=== PATIENT | female | born 1950 | race Caucasian/White ===

== ENCOUNTER 2021-06-25 17:24 | Inpatient (IN) | payer BC, OTHER ==
[2021-06-25 17:50] LABS: Absolute Lymphocytes (CBC) 2.5 K/uL (0.7-4.9); Lymphocytes % 25.2 % (15.3-44.8); MPV 7.3 fL (7.6-11.3); RBC Red Blood Cell Count 3.75 M/uL (3.86-4.86)
--- NOTE | 2021-06-25 17:53 | RAD REPORT ---
EXAM DESCRIPTION: CT - Ct Stroke Brain Wo Cont - 06/25/2021 5:39 pm CLINICAL HISTORY: Neuro deficit, acute, stroke suspected COMPARISON: No comparisons TECHNIQUE: All CT scans are performed using dose optimization technique as appropriate and may inclu de automated exposure control or mA/KV adjustment according to patient size. FINDINGS: No intracranial hemorrhage, hydrocephalus or extra-axial fluid collection.No areas of brai n edema or evidence of midline shift. The paranasal sinuses and mastoids are clear. The calvarium is intact. IMPRESSION: No acute intracranial abnormality. COMMUNICATION The critical information above was relayed directly by me to Kang Mckeon at [id number] on 06/01 08/21
[2021-06-25 17:59] LABS: Protime INR 0.97
--- NOTE | 2021-06-25 17:59 | RAD REPORT ---
EXAM DESCRIPTION: CT - Neck Angio - 06/25/2021 5:46 pm CLINICAL HISTORY: FACIAL DROOP COMPARISON: No comparisons TECHNIQUE: CT angiography of the neck vessels was performed with MIPs. All CT scans are performed using dose optimization technique as appropriate and may include automated exposure control or mA/KV adjustment according to patient size. FINDINGS: A left aortic arch is identified with normal three vessel configuration of the great vesse ls. No significant flow abnormality is seen of the common carotid bilaterally. Moderate stenosis of the right ICA at the bulb secondary to calcified plaque. Mild, less than 50% laura nosis at the left proximal ICA secondary to calcified plaque. Both ECAs are patent. Normal flow is seen within both vertebral arteries. Dominant left vertebral artery. IMPRESSION: Moderate right ICA stenosis. Mild (less than 50%) stenosis of the left ICA.
[2021-06-25] MEDS ORDERED: TENECTEPLASE 50 MG/10 ML VIAL IV ONE (18:02)
--- NOTE | 2021-06-25 18:10 | RAD REPORT ---
EXAM DESCRIPTION: CT - Head angio - 06/25/2021 5:46 pm CLINICAL HISTORY: FACIAL DROOP COMPARISON: Ct Stroke Brain Wo Cont dated 06/25/2021 TECHNIQUE: CT angiography of the head was performed with MIPs. All CT scans are performed using dose optimization technique as appropriate and may include automated exposure control or mA/KV adjustment according to patient size. FINDINGS: Anterior circulation: 3 mm saccular aneurysm versus infundibulum at the bifurcation of the right M1 segment of the middle c erebral artery. There is a 4 millimeters saccular aneurysm arising from the right proximal MCA. No he modynamically significant stenosis. No arteriovenous malformation identified. Right sphenoid sinus mu cosal thickening. Posterior circulation: No aneurysm or large vessel occlusion. No hemodynamically significant stenosis. No arteriovenous malf ormation identified. Hypoplastic right vertebral artery. IMPRESSION: No significant flow abnormality is detected. 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 Small 3 mm aneurysm at the M1/M2 bifurcation versus infund ibulum.
--- NOTE | 2021-06-25 18:24 | ER ---
Nurse's Notes [facility] Name: Mary Watts Age: 70 yrs Sex: Female : 1950 Arrival Date: 06/25/2021 Time: 17:32 Bed 3 Private MD: Diagnosis: Cerebral infarction, unspecified;Slurred speech;Facial weakness Presentation: 06/25 17:31 Chief complaint: EMS states: ACUTE NEURO DEFICITS, R FACIAL DROOP AND DYSARTHRIA, LAST bp KNOWN NORMAL 1630. Coronavirus screen: At this time, the client does not indicate any symptoms associated with coronavirus-19. Ebola Screen: No symptoms or risks identified at this time. Initial Sepsis Screen: Does the patient meet any 2 criteria? No. Patient's initial sepsis screen is negative. Does the patient have a suspected source of infection? No. Patient's initial sepsis screen is negative. Risk Assessment: Do you want to hurt yourself or someone else? Patient reports no desire to harm self or others. Note CODE STROKE CALLED. Onset of symptoms was June 25, 2021 at 16:30. Care prior to arrival: IV initiated. 18 GA, in the right antecubital area, Glucose check: 80. 17:31 Acuity: GROVER 1 bp 17:31 Method Of Arrival: EMS: [facility] bp Triage Assessment: 17:48 General: Appears distressed, comfortable, Behavior is calm, cooperative, NONVERBAL. bp Pain: Denies pain. EENT: No deficits noted. Neuro: Level of Consciousness is awake, alert, obeys commands, Oriented to RACHEL. Product Management Analyst are equal bilaterally Moves all extremities. Full function Speech with expressive aphasia noted, Facial droop on right. Cardiovascular: Rhythm is sinus rhythm. Respiratory: No deficits noted. GI: No signs and/or symptoms were reported involving the gastrointestinal system. : No signs and/or symptoms were reported regarding the genitourinary system. Derm: No deficits noted. Musculoskeletal: No deficits noted. Historical: - Allergies: 17:31 PENICILLINS; bp - PMHx: 17:31 Hypercholesterolemia; Hypertensive disorder; Hypothyroidism; aa5 - Immunization history:: Adult Immunizations up to date. - Social history:: Smoking status: Patient reports the use of cigarette tobacco products, smokes one pack cigarettes per day. - Family history:: not pertinent. - Hospitalizations: : No recent hospitalization is reported. Screenin:31 Abuse screen: Denies threats or abuse. Denies injuries from another. Nutritional bp screening: No deficits noted. Tuberculosis screening: No symptoms or risk factors identified. VAN Screening: Arm Drift: Minor drift. Visual Disturbance: No visual disturbance noted. Aphasia: Expressive aphasia noted. Provider notified of +VAN scoring. Neglect: No neglect noted. The patient has not been NPO before screening. The patient is alert, able to follow commands. The patient does not exhibit slurred or garbled speech The patient is exhibiting difficulty speaking. Provider notified of indication for Speech Therapy consult. The patient does not exhibit difficulty understanding words. The patient is able to swallow own secretions with no drooling or need for suction. Patient tolerated one teaspoon of water. No drooling, immediate coughing, gurgling, or clearing of the throat was noted. The patient tolerated 90mL of water. No drooling, immediate coughing, gurgling, or clearing of the throat was noted. The patient failed the bedside swallow screening. The patient will be kept NPO until cleared by Speech Therapy or Physician. Fall Risk None identified. Assessment: 17:31 General: PT TO CT WITH STROKE ALERT. bp 17:49 General: PT RETURNED FROM CT. bp 17:54 Reassessment: See inclusion criteria for the administration of thrombolytic therapy, aa5 TNK completed by . 17:58 T-PA (Activase) Screening: Indications: Treatment will start within 4.5 hours onset of aa5 symptoms: Yes. Consent for thrombolytic therapy: Yes. 18:00 Reassessment: No changes from previously documented assessment. TNKASE COMPLETED. bp 18:30 VAN Scoring: Arm Drift: Patients demonstrates NO arm weakness. Patient is VAN Negative. bp The patient has not been NPO before screening. The patient is alert, and able to follow commands. The patient exhibits slurred or garbled speech. Provider notified of the indication for Speech Therapy consult. The patient is exhibiting difficulty speaking. Provider notified of the indication for Speech Therapy consult. The patient does not exhibit difficulty understanding words. The patient is able to swallow own secretions with no drooling or need for suction. Patient tolerated one teaspoon of water. No drooling, immediate coughing, gurgling, or clearing of the throat was noted. The patient tolerated 90mL of water. No drooling, immediate coughing, gurgling, or clearing of the throat was noted. The patient failed the bedside swallow screening. The patient will be kept NPO until cleared by Speech Therapy or Physician. Provider notified of bedside swallow screening results: Yao Brown MD. 19:30 Reassessment: Kd Robb NP stated he has ordered speech therapy consult and put patient al4 NPO. Swallow screen not done by this RN, REED DIPPER aware. 19:30 General: Appears in no apparent distress. comfortable, Behavior is calm, cooperative, al4 Family at bedside. . Pain: Denies pain. Neuro: Level of Consciousness is awake, alert, obeys commands, Oriented to person, place, time, Product Management Analyst are equal bilaterally Speech is slurred, Facial droop on right. Cardiovascular: Capillary refill < 3 seconds Patient's skin is warm and dry. Respiratory: Airway is patent Respiratory effort is unlabored, Respiratory pattern is regular. 20:06 Reassessment: Patient appears in no apparent distress at this time. Patient is alert, al4 oriented x 3, equal unlabored respirations, skin warm/dry/pink. Patient denies pain at this time. 20:25 Reassessment: Report called to Mandi Brody RN. al4 20:30 Reassessment: In route to ICU patient exhibited increased facial droop and drooling. al4 Receiving RN Mandi Arriola notified of change in patient condition upon arrival. Vital Signs: 17:31 BP 139 / 73; Pulse 77; Resp 17; Temp 98.7; Pulse Ox 97% ; Weight 68.1 kg; bp 17:45 BP 165 / 75; Pulse 82; Resp 18; Pulse Ox 97% ; bp 18:00 BP 157 / 73; Pulse 86; Resp 18; Pulse Ox 95% ; bp 18:15 BP 139 / 77; Pulse 78; Resp 19; Pulse Ox 94% ; bp 18:30 BP 145 / 78; Pulse 76; Resp 21; Pulse Ox 94% ; bp 18:45 BP 118 / 69; Pulse 78; Resp 16; Pulse Ox 98% ; bp 19:00 BP 137 / 85; Pulse 69; Resp 17; Pulse Ox 95% ; bp 19:15 BP 142 / 78; Pulse 76; Resp 22; Pulse Ox 95% on R/A; Pain 0/10; al4 19:30 BP 161 / 84; Pulse 78; Resp 22; Pulse Ox 96% on R/A; Pain 0/10; al4 19:50 BP 143 / 81; Pulse 78; Resp 24; Pulse Ox 96% on R/A; Pain 0/10; al4 20:30 BP 128 / 79; Pulse 87; Resp 22; Pulse Ox 90% on R/A; Pain 0/10; al4 NIH Stroke Scale Scores: 17:54 NIHSS Score: 4 rn 17:56 NIHSS Score: 4 bp 18:30 NIHSS Score: 3 bp 19:30 NIHSS Score: 5 al4 19:45 NIHSS Score: 4 al4 20:00 NIHSS Score: 4 al4 ED Course: 17:31 Patient has correct armband on for positive identification. Bed in low position. Call bp light in reach. Side rails up X2. Adult w/ patient. 17:32 Patient arrived in ED. em1 17:35 Yao Brown MD is Attending Physician. rn 17:40 CT Stroke Brain w/o Contrast In Process Unspecified. EDMS 17:45 Jerod Aceves, RN is Primary Nurse. bp 17:47 Triage completed. bp 17:48 Head angio In Process Unspecified. EDMS 17:48 Neck Angio In Process Unspecified. EDMS 17:48 Arm band placed on. bp 17:53 Maintain EMS IV. Dressing intact. Good blood return noted. Site clean \T\ dry. Gauge \T\ bp site: 18 GA R AC. 18:22 Anders Brown MD is Hospitalizing Provider. rn 18:27 Stroke CXR 1 View In Process Unspecified. EDMS 20:06 No provider procedures requiring assistance completed. Patient admitted, IV remains in al4 place. Administered Medications: 17:59 Drug: TNK FOR STROKE - Tenecteplase 0.25 mg/kg {Co-Signature: aftab (Valery Dunne bp RN).} Route: IV; Rate: per protocol; Site: right antecubital; 18:57 Follow up: IV Status: Completed infusion bp 18:30 Drug: foLIC Acid 1 mg Route: IVPB; Site: right antecubital; bp 19:28 Follow up: Response: No adverse reaction; IV Status: Completed infusion al4 Point of Care Testing: Blood Glucose: 17:31 Blood Glucose: 97 mg/dL; bp Ranges: Outcome: 18:24 Decision to Hospitalize by Provider. rn 20:06 Admitted to ICU room 3. al4 20:06 Condition: stable 20:06 Discharge instructions given to patient, family, Instructed on the need for admit, Demonstrated understanding of instructions. 20:54 Patient left the ED. al4 NIH Stroke Scale - NIH Stroke Score Date: 06/25/2021 Time: 17:54 Total Score = 4 1a. Level of Consciousness (LOC) - 0(Alert) 1b. Level of Consciousness (LOC) (Month \T\ Age) - 0(Both) 1c. LOC Commands (Open \T\ Closes Eyes/Plow Shaker) - 0(Both) 2. Best Gaze (Lateral Gaze Paresis) - 0(Normal) 3. Visual Field Loss - 0(No visual loss) 4. Facial Palsy - 2(Partial paralysis) 5a. Left Arm: Motor (10-second hold) - 0(No drift) 5b. Right Arm: Motor (10-second hold) - 0(No drift) 6a. Left Leg: Motor (5-second hold - always test supine) - 0(No drift) 6b. Right Leg: Motor (5-second hold - always test supine) - 0(No drift) 7. Limb Ataxia (finger/nose \T\ heel/sharma - test with eyes open) - 0(Absent) 8. Sensory Loss (pinprick arms/legs/face) - 0(Normal) 9. Best Language: Aphasia (description/naming/reading) - 0(No aphasia) 10. Dysarthria (speech clarity - read or repeat words) - 2(Severe) 11. Extinction and Inattention (visual/tactile/auditory/spatial/personal) - 0(No abnormality) Initials: rn NIH Stroke Scale - NIH Stroke Score Date: 06/25/2021 Time: 17:56 Total Score = 4 1a. Level of Consciousness (LOC) - 0(Alert) 1b. Level of Consciousness (LOC) (Month \T\ Age) - 0(Both) 1c. LOC Commands (Open \T\ Closes Eyes/Plow Shaker) - 0(Both) 2. Best Gaze (Lateral Gaze Paresis) - 0(Normal) 3. Visual Field Loss - 0(No visual loss) 4. Facial Palsy - 2(Partial paralysis) 5a. Left Arm: Motor (10-second hold) - 0(No drift) 5b. Right Arm: Motor (10-second hold) - 0(No drift) 6a. Left Leg: Motor (5-second hold - always test supine) - 0(No drift) 6b. Right Leg: Motor (5-second hold - always test supine) - 0(No drift) 7. Limb Ataxia (finger/nose \T\ heel/sharma - test with eyes open) - 0(Absent) 8. Sensory Loss (pinprick arms/legs/face) - 0(Normal) 9. Best Language: Aphasia (description/naming/reading) - 0(No aphasia) 10. Dysarthria (speech clarity - read or repeat words) - 2(Severe) 11. Extinction and Inattention (visual/tactile/auditory/spatial/personal) - 0(No abnormality) Initials: NIH Stroke Scale - NIH Stroke Score Date: 06/25/2021 Time: 18:30 Total Score = 3 1a. Level of Consciousness (LOC) - 0(Alert) 1b. Level of Consciousness (LOC) (Month \T\ Age) - 0(Both) 1c. LOC Commands (Open \T\ Closes Eyes/Plow Shaker) - 0(Both) 2. Best Gaze (Lateral Gaze Paresis) - 0(Normal) 3. Visual Field Loss - 0(No visual loss) 4. Facial Palsy - 1(Minor Paralysis) 5a. Left Arm: Motor (10-second hold) - 0(No drift) 5b. Right Arm: Motor (10-second hold) - 0(No drift) 6a. Left Leg: Motor (5-second hold - always test supine) - 0(No drift) 6b. Right Leg: Motor (5-second hold - always test supine) - 0(No drift) 7. Limb Ataxia (finger/nose \T\ heel/sharma - test with eyes open) - 0(Absent) 8. Sensory Loss (pinprick arms/legs/face) - 0(Normal) 9. Best Language: Aphasia (description/naming/reading) - 0(No aphasia) 10. Dysarthria (speech clarity - read or repeat words) - 2(Severe) 11. Extinction and Inattention (visual/tactile/auditory/spatial/personal) - 0(No abnormality) Initials: NIH Stroke Scale - NIH Stroke Score Date: 06/25/2021 Time: 19:30 Total Score = 5 1a. Level of Consciousness (LOC) - 0(Alert) 1b. Level of Consciousness (LOC) (Month \T\ Age) - 0(Both) 1c. LOC Commands (Open \T\ Closes Eyes/Plow Shaker) - 0(Both) 2. Best Gaze (Lateral Gaze Paresis) - 0(Normal) 3. Visual Field Loss - 0(No visual loss) 4. Facial Palsy - 2(Partial paralysis) 5a. Left Arm: Motor (10-second hold) - 0(No drift) 5b. Right Arm: Motor (10-second hold) - 0(No drift) 6a. Left Leg: Motor (5-second hold - always test supine) - 0(No drift) 6b. Right Leg: Motor (5-second hold - always test supine) - 0(No drift) 7. Limb Ataxia (finger/nose \T\ heel/sharma - test with eyes open) - 0(Absent) 8. Sensory Loss (pinprick arms/legs/face) - 0(Normal) 9. Best Language: Aphasia (description/naming/reading) - 1(Mild to moderate aphasia) 10. Dysarthria (speech clarity - read or repeat words) - 2(Severe) 11. Extinction and Inattention (visual/tactile/auditory/spatial/personal) - 0(No abnormality) Initials: al4 NIH Stroke Scale - NIH Stroke Score Date: 06/25/2021 Time: 19:45 Total Score = 4 1a. Level of Consciousness (LOC) - 0(Alert) 1b. Level of Consciousness (LOC) (Month \T\ Age) - 0(Both) 1c. LOC Commands (Open \T\ Closes Eyes/Plow Shaker) - 0(Both) 2. Best Gaze (Lateral Gaze Paresis) - 0(Normal) 3. Visual Field Loss - 0(No visual loss) 4. Facial Palsy - 2(Partial paralysis) 5a. Left Arm: Motor (10-second hold) - 0(No drift) 5b. Right Arm: Motor (10-second hold) - 0(No drift) 6a. Left Leg: Motor (5-second hold - always test supine) - 0(No drift) 6b. Right Leg: Motor (5-second hold - always test supine) - 0(No drift) 7. Limb Ataxia (finger/nose \T\ heel/sharma - test with eyes open) - 0(Absent) 8. Sensory Loss (pinprick arms/legs/face) - 0(Normal) 9. Best Language: Aphasia (description/naming/reading) - 0(No aphasia) 10. Dysarthria (speech clarity - read or repeat words) - 2(Severe) 11. Extinction and Inattention (visual/tactile/auditory/spatial/personal) - 0(No abnormality) Initials: al4 NIH Stroke Scale - NIH Stroke Score Date: 06/25/2021 Time: 20:00 Total Score = 4 1a. Level of Consciousness (LOC) - 0(Alert) 1b. Level of Consciousness (LOC) (Month \T\ Age) - 0(Both) 1c. LOC Commands (Open \T\ Closes Eyes/Plow Shaker) - 0(Both) 2. Best Gaze (Lateral Gaze Paresis) - 0(Normal) 3. Visual Field Loss - 0(No visual loss) 4. Facial Palsy - 2(Partial paralysis) 5a. Left Arm: Motor (10-second hold) - 0(No drift) 5b. Right Arm: Motor (10-second hold) - 0(No drift) 6a. Left Leg: Motor (5-second hold - always test supine) - 0(No drift) 6b. Right Leg: Motor (5-second hold - always test supine) - 0(No drift) 7. Limb Ataxia (finger/nose \T\ heel/sharma - test with eyes open) - 0(Absent) 8. Sensory Loss (pinprick arms/legs/face) - 0(Normal) 9. Best Language: Aphasia (description/naming/reading) - 0(No aphasia) 10. Dysarthria (speech clarity - read or repeat words) - 2(Severe) 11. Extinction and Inattention (visual/tactile/auditory/spatial/personal) - 0(No abnormality) Initials: al4 Signatures: Dispatcher [employer] EDMS Yao Brown MD MD rn Martinez, Eric em1 Tesha Valadez, RN RN aa5 Jerod Aceves RN RN bp Mickey Rosario al4 Valery ugalde Corrections: (The following items were deleted from the chart) 17:56 17:31 BP 139 / 73; Pulse 77bpm; Resp 17bpm; Pulse Ox 97%; Temp 98.7F; bp bp 17:56 17:31 NIHSS Score: 5 bp bp 17:56 17:53 NIHSS Score: 5 bp bp 19:54 19:30 Reassessment: Kd Robb NP stated he has ordered speech therapy consult and al4 put patient NPO. Swallow screen not done, REED DIPPER aware. al4 20:25 19:30 Neuro: Level of Consciousness is awake, alert, obeys commands, Oriented al4 to person, place, time, Product Management Analyst are equal bilaterally Speech is slurred, Facial droop on left, al4 20:52 19:00 BP 142 / 78; Pulse 76bpm; Resp 22bpm; Pulse Ox 95% RA; Pain 0/10; al4 al4 20:54 19:30 Neuro: Level of Consciousness is awake, alert, obeys commands, Oriented al4 to person, place, time, Product Management Analyst are equal bilaterally Speech is slurred, Facial droop on right, al4 20:58 19:30 General: Appears in no apparent distress. comfortable, Behavior is calm, al4 cooperative, al4 20:58 20:30 Reassessment: In route to ICU patient exhibited increased facial droop al4 and drooling. Receiving RN notified of change in patient condition upon arrival. al4 20:58 20:30 Reassessment: In route to ICU patient exhibited increased facial droop al4 and drooling. Receiving RN Mandi Arriola notified of change in patient condition upon arrival. al4
--- NOTE | 2021-06-25 18:24 | EDPHYS ---
Physician Documentation [facility] Name: Mary Watts Age: 70 yrs Sex: Female : 1950 Arrival Date: 06/25/2021 Time: 17:32 Bed 3 Private MD: ED Physician Yao Brown HPI: 06/25 17:57 This 70 yrs old Female presents to ER via EMS with complaints of S/S of Possible Stroke.rn 17:57 The patient's problem is reported as a facial droop, on right, dysphasia, slurred rn speech, expressive aphasia. Onset: The symptoms/episode began/occurred just prior to arrival. Context: symptoms became apparent at 16:30. occurred at home, occurred while the patient was at rest. The symptoms are alleviated by nothing. The symptoms are aggravated by nothing. Associated signs and symptoms: Pertinent positives:. 18:02 Severity of symptoms: At their worst the symptoms were moderate in the emergency rn department the symptoms are unchanged. The patient has not experienced similar symptoms in the past. The patient has not recently seen a physician. Family reports patient called them, couldn't understand what she was saying, normally alert and oriented with normal speech, no hx of stroke. Last known normal was about 1630 as she was awake and felt fine prior to this, immediately called family when she noticed a change. Family also states that she was sending normal texts around 3PM adn 3:30 PM that were legible. . Historical: - Allergies: 17:31 PENICILLINS; bp - PMHx: 17:31 Hypercholesterolemia; Hypertensive disorder; Hypothyroidism; aa5 - Immunization history:: Adult Immunizations up to date. - Social history:: Smoking status: Patient reports the use of cigarette tobacco products, smokes one pack cigarettes per day. - Family history:: not pertinent. - Hospitalizations: : No recent hospitalization is reported. ROS: 18:02 Constitutional: Negative for fever, chills, and weight loss, Eyes: Negative for injury, rn pain, redness, and discharge, ENT: Negative for injury, pain, and discharge, Neck: Negative for injury, pain, and swelling, Cardiovascular: Negative for chest pain, palpitations, and edema, Respiratory: Negative for shortness of breath, cough, wheezing, and pleuritic chest pain, Abdomen/GI: Negative for abdominal pain, nausea, vomiting, diarrhea, and constipation, Back: Negative for injury and pain, : Negative for injury, bleeding, discharge, and swelling, MS/Extremity: Negative for injury and deformity, Skin: Negative for injury, rash, and discoloration, Neuro: Negative for headache, numbness, tingling, and seizure. Exam: 18:02 Radiologist reports: No acute findings rn 18:02 Constitutional: This is a well developed, well nourished patient who is awake, alert, very frustrated with attempted speech Head/Face: Normocephalic, atraumatic. Eyes: Pupils equal round and reactive to light, extra-ocular motions intact. ENT: Mucous membranes moist. Cardiovascular: Regular rate and rhythm. No pulse deficits. Respiratory: No increased work of breathing, no retractions or nasal flaring. Abdomen/GI: Soft, non-tender Skin: Warm, dry with normal turgor. Normal color with no rashes, no lesions, and no evidence of cellulitis. MS/ Extremity: Pulses equal, no cyanosis. Neurovascular intact. Full, normal range of motion. Equal circumference. Neuro: Awake and alert, GCS 15, oriented to person, place, time, and situation. + severe dysarthria and slurred speech. Motor strength 5/5 in all extremities with slightly weak joy operator strength of right hand. Sensory grossly intact. Cerebellar exam normal. Vital Signs: 17:31 BP 139 / 73; Pulse 77; Resp 17; Temp 98.7; Pulse Ox 97% ; Weight 68.1 kg; bp 17:45 BP 165 / 75; Pulse 82; Resp 18; Pulse Ox 97% ; bp 18:00 BP 157 / 73; Pulse 86; Resp 18; Pulse Ox 95% ; bp 18:15 BP 139 / 77; Pulse 78; Resp 19; Pulse Ox 94% ; bp 18:30 BP 145 / 78; Pulse 76; Resp 21; Pulse Ox 94% ; bp 18:45 BP 118 / 69; Pulse 78; Resp 16; Pulse Ox 98% ; bp 19:00 BP 137 / 85; Pulse 69; Resp 17; Pulse Ox 95% ; bp 19:15 BP 142 / 78; Pulse 76; Resp 22; Pulse Ox 95% on R/A; Pain 0/10; al4 19:30 BP 161 / 84; Pulse 78; Resp 22; Pulse Ox 96% on R/A; Pain 0/10; al4 19:50 BP 143 / 81; Pulse 78; Resp 24; Pulse Ox 96% on R/A; Pain 0/10; al4 20:30 BP 128 / 79; Pulse 87; Resp 22; Pulse Ox 90% on R/A; Pain 0/10; al4 NIH Stroke Scale Scores: 17:54 NIHSS Score: 4 rn 17:56 NIHSS Score: 4 bp 18:30 NIHSS Score: 3 bp 19:30 NIHSS Score: 5 al4 19:45 NIHSS Score: 4 al4 20:00 NIHSS Score: 4 al4 MDM: 17:35 Patient medically screened. rn 17:54 ED course: Pt and family consented for TNKase, last known normal was 1630, NIH 4, meets rn inclusion criteria, not on blood thinner. . 18:02 Differential diagnosis: CVA, TIA, metabolic disorder. Data reviewed: vital signs, rn nurses notes, radiologic studies, CT scan. Counseling: I had a detailed discussion with the patient and/or guardian regarding: the historical points, exam findings, and any diagnostic results supporting the discharge/admit diagnosis, radiology results, the need for further work-up and treatment in the hospital. 18:21 Admission orders: after a detailed discussion of the patient's condition and case, the furniture mover orders are written by me. 06/25 17:34 Order name: Basic Metabolic Panel; Complete Time: 18:36 bp 06/25 17:34 Order name: CBC with Diff; Complete Time: 18:24 bp 06/25 17:34 Order name: Protime (+inr); Complete Time: 18:24 bp 06/25 17:34 Order name: Ptt, Activated; Complete Time: 18:24 bp 06/25 17:55 Order name: Glucose, Ancillary Testing; Complete Time: 18:24 EDMS 06/25 18:05 Order name: COVID-19 SARS RT PCR (Document "Date of Onset" if Symptomatic) ld1 06/25 17:34 Order name: CT Stroke Brain w/o Contrast; Complete Time: 18:24 bp 06/25 17:34 Order name: Stroke CXR 1 View; Complete Time: 18:36 bp 06/25 17:34 Order name: EKG; Complete Time: 17:35 bp 06/25 17:34 Order name: Accucheck; Complete Time: 17:55 bp 06/25 17:40 Order name: Head angio; Complete Time: 18:24 EDMS 06/25 17:40 Order name: Neck Angio; Complete Time: 18:24 EDMS 06/25 17:34 Order name: Cardiac monitoring; Complete Time: 17:55 bp 06/25 17:34 Order name: EKG - Nurse/Tech; Complete Time: 18:06 bp 06/25 17:34 Order name: IV Saline Lock; Complete Time: 17:55 bp 06/25 17:34 Order name: Labs collected and sent; Complete Time: 17:55 bp 06/25 17:34 Order name: NPO; Complete Time: 17:55 bp 06/25 17:34 Order name: O2 Per Protocol; Complete Time: 17:55 bp 06/25 17:34 Order name: O2 Sat Monitoring; Complete Time: 17:55 bp 06/25 17:34 Order name: Stroke Swallow Screen; Complete Time: 17:55 bp Administered Medications: 17:59 Drug: TNK FOR STROKE - Tenecteplase 0.25 mg/kg {Co-Signature: aftab Dunne bp RN).} Route: IV; Rate: per protocol; Site: right antecubital; 18:57 Follow up: IV Status: Completed infusion bp 18:30 Drug: foLIC Acid 1 mg Route: IVPB; Site: right antecubital; bp 19:28 Follow up: Response: No adverse reaction; IV Status: Completed infusion al4 Point of Care Testing: Blood Glucose: 17:31 Blood Glucose: 97 mg/dL; bp Ranges: Critical Glucose Levels:Adult <50 mg/dl or >400 mg/dl <40 mg/dl or >180 mg/dl Disposition Summary: 06/25/21 18:24 Hospitalization Ordered Hospitalization Status: Inpatient Admission rn Provider: Anders Brown rn Location: Intensive Care Unit rn Condition: Stable rn Problem: new rn Symptoms: are unchanged rn Bed/Room Type: Standard rn Room Assignment: 3-(06/25/21 19:35) mw Diagnosis - Cerebral infarction, unspecified rn - Slurred speech rn - Facial weakness rn Forms: - Medication Reconciliation Form rn - SBAR form corn sheller operator time excluding procedures: 18:21 Critical care time: Bedside Care: 30 minutes, Consultation: 5 minutes, Family rn Intervention: 5 minutes. Total time: 40 minutes NIH Stroke Scale - NIH Stroke Score Date: 06/25/2021 Time: 17:54 Total Score = 4 1a. Level of Consciousness (LOC) - 0(Alert) 1b. Level of Consciousness (LOC) (Month \\T\\ Age) - 0(Both) 1c. LOC Commands (Open \\T\\ Closes Eyes/Clay Caster) - 0(Both) 2. Best Gaze (Lateral Gaze Paresis) - 0(Normal) 3. Visual Field Loss - 0(No visual loss) 4. Facial Palsy - 2(Partial paralysis) 5a. Left Arm: Motor (10-second hold) - 0(No drift) 5b. Right Arm: Motor (10-second hold) - 0(No drift) 6a. Left Leg: Motor (5-second hold - always test supine) - 0(No drift) 6b. Right Leg: Motor (5-second hold - always test supine) - 0(No drift) 7. Limb Ataxia (finger/nose \\T\\ heel/sharma - test with eyes open) - 0(Absent) 8. Sensory Loss (pinprick arms/legs/face) - 0(Normal) 9. Best Language: Aphasia (description/naming/reading) - 0(No aphasia) 10. Dysarthria (speech clarity - read or repeat words) - 2(Severe) 11. Extinction and Inattention (visual/tactile/auditory/spatial/personal) - 0(No abnormality) Initials: kassie NIH Stroke Scale - NIH Stroke Score Date: 06/25/2021 Time: 17:56 Total Score = 4 1a. Level of Consciousness (LOC) - 0(Alert) 1b. Level of Consciousness (LOC) (Month \\T\\ Age) - 0(Both) 1c. LOC Commands (Open \\T\\ Closes Eyes/Clay Caster) - 0(Both) 2. Best Gaze (Lateral Gaze Paresis) - 0(Normal) 3. Visual Field Loss - 0(No visual loss) 4. Facial Palsy - 2(Partial paralysis) 5a. Left Arm: Motor (10-second hold) - 0(No drift) 5b. Right Arm: Motor (10-second hold) - 0(No drift) 6a. Left Leg: Motor (5-second hold - always test supine) - 0(No drift) 6b. Right Leg: Motor (5-second hold - always test supine) - 0(No drift) 7. Limb Ataxia (finger/nose \\T\\ heel/sharma - test with eyes open) - 0(Absent) 8. Sensory Loss (pinprick arms/legs/face) - 0(Normal) 9. Best Language: Aphasia (description/naming/reading) - 0(No aphasia) 10. Dysarthria (speech clarity - read or repeat words) - 2(Severe) 11. Extinction and Inattention (visual/tactile/auditory/spatial/personal) - 0(No abnormality) Initials: NIH Stroke Scale - NIH Stroke Score Date: 06/25/2021 Time: 18:30 Total Score = 3 1a. Level of Consciousness (LOC) - 0(Alert) 1b. Level of Consciousness (LOC) (Month \\T\\ Age) - 0(Both) 1c. LOC Commands (Open \\T\\ Closes Eyes/Clay Caster) - 0(Both) 2. Best Gaze (Lateral Gaze Paresis) - 0(Normal) 3. Visual Field Loss - 0(No visual loss) 4. Facial Palsy - 1(Minor Paralysis) 5a. Left Arm: Motor (10-second hold) - 0(No drift) 5b. Right Arm: Motor (10-second hold) - 0(No drift) 6a. Left Leg: Motor (5-second hold - always test supine) - 0(No drift) 6b. Right Leg: Motor (5-second hold - always test supine) - 0(No drift) 7. Limb Ataxia (finger/nose \\T\\ heel/sharma - test with eyes open) - 0(Absent) 8. Sensory Loss (pinprick arms/legs/face) - 0(Normal) 9. Best Language: Aphasia (description/naming/reading) - 0(No aphasia) 10. Dysarthria (speech clarity - read or repeat words) - 2(Severe) 11. Extinction and Inattention (visual/tactile/auditory/spatial/personal) - 0(No abnormality) Initials: NIH Stroke Scale - NIH Stroke Score Date: 06/25/2021 Time: 19:30 Total Score = 5 1a. Level of Consciousness (LOC) - 0(Alert) 1b. Level of Consciousness (LOC) (Month \\T\\ Age) - 0(Both) 1c. LOC Commands (Open \\T\\ Closes Eyes/Clay Caster) - 0(Both) 2. Best Gaze (Lateral Gaze Paresis) - 0(Normal) 3. Visual Field Loss - 0(No visual loss) 4. Facial Palsy - 2(Partial paralysis) 5a. Left Arm: Motor (10-second hold) - 0(No drift) 5b. Right Arm: Motor (10-second hold) - 0(No drift) 6a. Left Leg: Motor (5-second hold - always test supine) - 0(No drift) 6b. Right Leg: Motor (5-second hold - always test supine) - 0(No drift) 7. Limb Ataxia (finger/nose \\T\\ heel/sharma - test with eyes open) - 0(Absent) 8. Sensory Loss (pinprick arms/legs/face) - 0(Normal) 9. Best Language: Aphasia (description/naming/reading) - 1(Mild to moderate aphasia) 10. Dysarthria (speech clarity - read or repeat words) - 2(Severe) 11. Extinction and Inattention (visual/tactile/auditory/spatial/personal) - 0(No abnormality) Initials: al4 NIH Stroke Scale - NIH Stroke Score Date: 06/25/2021 Time: 19:45 Total Score = 4 1a. Level of Consciousness (LOC) - 0(Alert) 1b. Level of Consciousness (LOC) (Month \\T\\ Age) - 0(Both) 1c. LOC Commands (Open \\T\\ Closes Eyes/Clay Caster) - 0(Both) 2. Best Gaze (Lateral Gaze Paresis) - 0(Normal) 3. Visual Field Loss - 0(No visual loss) 4. Facial Palsy - 2(Partial paralysis) 5a. Left Arm: Motor (10-second hold) - 0(No drift) 5b. Right Arm: Motor (10-second hold) - 0(No drift) 6a. Left Leg: Motor (5-second hold - always test supine) - 0(No drift) 6b. Right Leg: Motor (5-second hold - always test supine) - 0(No drift) 7. Limb Ataxia (finger/nose \\T\\ heel/sharma - test with eyes open) - 0(Absent) 8. Sensory Loss (pinprick arms/legs/face) - 0(Normal) 9. Best Language: Aphasia (description/naming/reading) - 0(No aphasia) 10. Dysarthria (speech clarity - read or repeat words) - 2(Severe) 11. Extinction and Inattention (visual/tactile/auditory/spatial/personal) - 0(No abnormality) Initials: al4 NIH Stroke Scale - NIH Stroke Score Date: 06/25/2021 Time: 20:00 Total Score = 4 1a. Level of Consciousness (LOC) - 0(Alert) 1b. Level of Consciousness (LOC) (Month \\T\\ Age) - 0(Both) 1c. LOC Commands (Open \\T\\ Closes Eyes/Clay Caster) - 0(Both) 2. Best Gaze (Lateral Gaze Paresis) - 0(Normal) 3. Visual Field Loss - 0(No visual loss) 4. Facial Palsy - 2(Partial paralysis) 5a. Left Arm: Motor (10-second hold) - 0(No drift) 5b. Right Arm: Motor (10-second hold) - 0(No drift) 6a. Left Leg: Motor (5-second hold - always test supine) - 0(No drift) 6b. Right Leg: Motor (5-second hold - always test supine) - 0(No drift) 7. Limb Ataxia (finger/nose \\T\\ heel/sharma - test with eyes open) - 0(Absent) 8. Sensory Loss (pinprick arms/legs/face) - 0(Normal) 9. Best Language: Aphasia (description/naming/reading) - 0(No aphasia) 10. Dysarthria (speech clarity - read or repeat words) - 2(Severe) 11. Extinction and Inattention (visual/tactile/auditory/spatial/personal) - 0(No abnormality) Initials: al4 Signatures: Dispatcher [employer] EDMS Franchesca Lucia RN Yao Pimentel MD MD rn Calderon, Audri, RN RN aa5 Kd Berman, GLOBAL TECHNICAL WRITER-C GLOBAL TECHNICAL WRITER-Cla1 Jerod Aceves RN RN bp Ledbetter, Alexis al4 Whitney Wood RN ww Corrections: (The following items were deleted from the chart) 19:35 18:24 kassie chavarria
--- NOTE | 2021-06-25 18:30 | RAD REPORT ---
EXAM DESCRIPTION: RAD - Chest Single View - 06/25/2021 6:26 pm CLINICAL HISTORY: MD DISCRETION COMPARISON: Chest Pa And Lat (2 Views) dated 02/14/2021; Chest Pa And Lat (2 Views) dated 03/10/2017 FINDINGS: Lines: None. Lungs: No evidence of edema or pneumonia. Pleural: No significant pleural effusions or pneumothorax. Cardiac: The heart size is within normal limits. Bones: No acute fractures. Other: IMPRESSION: No acute cardiopulmonary disease.
[2021-06-25 18:32] LABS: Potassium 3.5 mmol/L (3.5-5.1)
--- NOTE | 2021-06-25 18:56 | P.HP ---
Certification for Inpatient Patient admitted to: Inpatient With expected LOS: >2 Midnights Patient will require the following post-hospital care: None Practitioner: I am a practitioner with admitting privileges, knowledge of patient current condition, hospital course, and medical plan of care. Services: Services provided to patient in accordance with Admission requirements found in Title 42 Section 412.3 of the Code of Federal Regulations Patient History Date of Service: 06/25/21 Reason for admission: Ischemic CVA History of Present Illness: 70-year-old female with history of hypertension, hyperlipidemia, tobacco abuse presents emergency department with aphasia, right-sided weakness. Family reports that they are texting with her at around 330 this afternoon and her interaction was normal, they report they received a phone call around 4:30 PM during which they were unable to understand what she was saying is that they reviewed the camera footage and she was able to tell them that her symptoms started when she walked inside according to the care versus would be around [address] head without contrast negative for acute findings CT head and neck angio demonstrate no flow-limiting stenosis of the carotids although there is moderate right ICA stenosis with mild left ICA stenosis CTA of the head was also negative for flow-limiting stenosis but did identify 4 mm saccular right proximal MCA aneurysm and small 3 mm aneurysm at the M1 M2 bifurcation versus infundibulum. Patient did receive TNKase in the emergency department Case was discussed with neurology no need for urgent/emergent intervention at this time can admit to ICU for further stroke evaluation. - Past Medical/Surgical History Diabetic: No -: Hypertension -: Hyperlipidemia -: Tobacco abuse -: Hysterectomy Psychosocial/ Personal History: Patient lives at home with her children - Family History Family History: Reviewed- Non-Contributory - Social History Smoking Status: Current every day smoker Counseled patient to stop smoking for: less than 10 minutes Smoking therapy provided: No Alcohol use: Yes CD- Drugs: No Caffeine use: Yes Place of Residence: Home Review of Systems 10-point ROS is otherwise unremarkable Neurological: Weakness, Change in Speech, As per HPI Physical Examination - Physical Exam General: Alert, Other (severe expressive aphasia limis exam) HEENT: Atraumatic, Normocephalic, PERRLA Neck: Supple Respiratory: Clear to auscultation bilaterally, Normal air movement Cardiovascular: No edema, Normal S1 S2 Capillary refill: <2 Seconds Gastrointestinal: Normal bowel sounds, Soft and benign Musculoskeletal: No clubbing, No swelling, No contractures Integumentary: No significant lesion, No tenderness/swelling, No erythema Neurological: Other (expressive aphasia, right facial droop, mild RUE weakness), Abnormal speech, Abnormal strength - Studies Laboratory Data (last 24 hrs) 06/25/21 17:40: PT 10.7, INR 0.97, APTT 31.6 06/25/21 17:40: WBC 9.7, Hgb 13.4, Hct 38.0, Plt Count 272 06/25/21 17:40: Sodium 140, Potassium 3.5, BUN 14, Creatinine 0.75, Glucose 104 Assessment and Plan - Plan Assessment: Expressive aphasia, right-sided weakness suspect acute ischemic CVA Hypertension Hyperlipidemia Tobacco abuse Alcohol abuse Plan: Expressive aphasia, right-sided weakness suspect acute ischemic CVA: Status post TNK, will monitor in the ICU for the next 24 hours frequent neurochecks MRI stroke protocol, carotid Doppler, echocardiogram, speech and physical therapy consults in place after 24 hours we will continue with aspirin, Plavix, folic acid, statin. Neurology consult in place, angiograms negative for flow-limiting stenosis. Hypertension: We will allow for permissive hypertension this evening continue home medications when appropriate Hyperlipidemia: Continue atorvastatin 80 mg daily Tobacco abuse: Counseled on need for tobacco cessation we will provide NicoDerm patch if requested Alcohol abuse: Patient reportedly drinks approximately 1 bottle of alcohol per week will monitor for signs of withdrawal. DVT PPX: SCD until 24 hours post TNK, then lovenox Code status:Full code Discharge Plan: Home Plan to discharge in: Greater than 2 days - Advance Directives Does patient have a Living Will: No Does patient have a Durable POA for Healthcare: No - Code Status/Comfort Care Code Status Assessed: Yes (Full code) Critical Care: No Time Spent Managing Pts Care (In Minutes): 55
[2021-06-25] MEDS ORDERED: NA CHLORIDE 0.9% 250 ML ONE (18:57)
[2021-06-25] MEDS ORDERED: FOLIC ACID 5 MG/ML VIAL ONE (18:58)
[2021-06-25] MEDS ORDERED: NICOTINE 14 MG/PAT TD PRN (20:29)
[2021-06-25] MEDS ORDERED: MORPHINE 2 MG/ML SYR IV PRN (20:29)
[2021-06-25] MEDS: D5 0.45 NS 1,000 ML IV SCH (23:41)
[2021-06-26 05:39] LABS: Absolute Lymphocytes (CBC) 1.9 K/uL (0.7-4.9); Hematocrit 37.7 % (36.0-45.0); Lymphocytes % 17.2 % (15.3-44.8); MPV 7.8 fL (7.6-11.3); RBC Red Blood Cell Count 3.75 M/uL (3.86-4.86)
[2021-06-26 06:04] LABS: Albumin 3.4 g/dL (3.4-5.0); Bilirubin Total 0.6 mg/dL (0.2-1.0); Potassium 3.7 mmol/L (3.5-5.1); Protein, Total 6.5 g/dL (6.4-8.2); Thyroid Stimulating Hormone 0.497 uIU/mL (0.360-3.740)
[2021-06-26] MEDS: D5 0.45 NS 1,000 ML IV SCH ×2 (06:29→16:35)
[2021-06-26] MEDS ORDERED: KCL 20 MEQ/100 mL IVPB 20 MEQ/100 ML BAG IV SCH (07:00)
--- NOTE | 2021-06-26 07:22 | RAD REPORT ---
EXAM DESCRIPTION: US - CP - 06/26/2021 12:49 am CLINICAL HISTORY: CVA COMPARISON: Neck Angio dated 06/25/2021 TECHNIQUE: Real-time sonographic evaluation of both carotid systems was performed. Doppler interroga tion was performed with waveform tracing bilaterally. FINDINGS: Normal high resistance waveforms are noted in both external carotid arteries. The common c arotid arteries and internal carotid arteries show normal low resistance waveforms. Hard plaque is present at both proximal internal carotid arteries. Peak systolic and end diastolic ve locity values and the ICA/CCA ratios are in the non-hemodynamically significant range. Antegrade flow seen in both vertebral arteries. IMPRESSION: Calcified plaque at the proximal ICAs bilaterally. No evidence of a hemodynamically significant stenosis.
[2021-06-26] MEDS: FOLIC ACID 1 MG in NA CHLORIDE 0.9% 50 ML IV SCH (09:08)
[2021-06-26 10:28] LABS: Urine Appearance Clear (Clear); Urine Bilirubin Negative (Negative); Urine Blood Negative (Negative); Urine Color Yellow (Yellow); Urine Glucose Negative (Negative); Urine Protein Negative (Negative); Urine Urobilinogen 0.2 mg/dL (0.2-1.0); Urine pH 7.5 (5.0-7.0)
[2021-06-26 10:29] LABS: Urine Microscopic Reflex NO UMIC
[2021-06-26] MEDS ORDERED: MORPHINE 2 MG/ML SYR IV ONE (11:33)
--- NOTE | 2021-06-26 12:05 | RAD REPORT ---
EXAM DESCRIPTION: MRI - Brain W/Wo Cont - 06/26/2021 11:58 am CLINICAL HISTORY: Aphasia, right sided weakness COMPARISON: MRA Head Wo Cont dated 06/26/2021; Neck Angio dated 06/25/2021; Head angio dated 06/25/2021 ; Ct Stroke Brain Wo Cont dated 06/25/2021 TECHNIQUE: Sagittal T1-weighted images were obtained along with PD/heavily T2-weighted and T2-FLAIR images. Axial DWI and ADC mapping sequences were also obtained along with coronal heavily T2-weighted images were obtained. FINDINGS: Acute cortical infarcts in the upper left frontal lobe. Overall volume of infarct is small moderate. There is matching low signal on ADC. There is also gyral edema. No mass effect or midline shift. No hemorrhage is identified. Flow voids are grossly unremarkable. Left mastoid fluid. Mild ethmoid and sphenoid sinus thickening. The right mastoid is rib well aerated . . . IMPRESSION: Acute left frontal lobe cortical infarcts.
--- NOTE | 2021-06-26 12:08 | RAD REPORT ---
EXAM DESCRIPTION: MRI - MRA Head Wo Cont - 06/26/2021 11:58 am CLINICAL HISTORY: Aphasia, right sided weakness CVA COMPARISON: Neck Angio dated 06/25/2021; Head angio dated 06/25/2021; Ct Stroke Brain Wo Cont dated FINDINGS: 3D noncontrast [id number] MR angiography of the [place] was performed. Aneurysms at the proximal right M1 segment of the MCA and at the bifurcation of the right MCA are aga in identified. These are better visualized on the CTA. The largest measures 4 millimeters. Dominant l eft vertebral artery. Tiny right distal vertebral artery. The visualized dural venous sinuses appear patent. IMPRESSION: No significant flow abnormality of the [place] is identified. Small saccular ri ght MCA aneurysms, the largest measuring 4 mm are again identified.
--- NOTE | 2021-06-26 12:11 | RAD REPORT ---
EXAM DESCRIPTION: MRI - MRA Neck W/Wo Cont - 06/26/2021 12:00 pm CLINICAL HISTORY: Aphasia, right sided weakness COMPARISON: Head angio dated 06/25/2021; Neck Angio dated 06/25/2021 FINDINGS: Contrast enhance 2D [id number] MR angiography of the neck vessels was performed. Moderate 50- 70% stenosis of the right ICA at the carotid bulb. No significant stenosis involving the left carotid system. The left vertebral artery is dominant. Both vertebral arteries are patent. IMPRESSION: Moderate stenosis at the right proximal ICA. No hemodynamically significant stenosis inv olving the left carotid system or vertebral arteries
--- NOTE | 2021-06-26 13:22 | ECHO ---
HEIGHT: 5 ft 4 in WEIGHT: 149 lb 0 oz DATE OF STUDY: 06/26/[address]: Kd Berman NP 2-DIMENSIONAL: YES M.MODE: YES DOPPLER: YES COLOR FLOW: YES TDS: NO PORTABLE: YES DEFINITY: NO BUBBLE STUDY: NO DIAGNOSIS: CEREBRAL VASCULAR ACCIDENT CARDIAC HISTORY: CATHERIZATION: NO SURGERY: NO PROSTHETIC VALVE: NO PACEMAKER: NO MEASUREMENTS (cm) DIASTOLIC (NORMALS) SYSTOLIC (NORMALS) IVSd 1.1 (0.6-1.2) LA Diam 3.2 (1.9-4.0) LVEF 65% LVIDd 3.1 (3.5-5.7) LVIDs 2.0 (2.0-3.5) %FS 34% LVPWd 1.1 (0.6-1.2) Ao Diam 1.8 (2.0-3.7) 2 DIMENSIONAL ASSESSMENT: RIGHT ATRIUM: NORMAL LEFT ATRIUM: NORMAL RIGHT VENTRICLE: NORMAL LEFT VENTRICLE: NORMAL TRICUSPID VALVE: NORMAL MITRAL VALVE: NORMAL PULMONIC VALVE: NORMAL AORTIC VALVE: NORMAL PERICARDIAL EFFUSION: NONE AORTIC ROOT: NORMAL LEFT VENTRICULAR WALL MOTION: NORMAL. DOPPLER/COLOR FLOW: MILD TRICUSPID REGURGITATION. COMMENTS: NORMAL 2D ECHO. MILD TRICUSPID REGURGITATION- NORMAL RIGHT VENTRICULAR SYSTOLIC PRESSURE. NO VEGETATION. TECHNOLOGIST: AMANUEL LEVIN
--- NOTE | 2021-06-26 18:04 | RAD REPORT ---
EXAM DESCRIPTION: CT - Head Brain Wo Cont - 06/26/2021 5:50 pm CLINICAL HISTORY: R/O hemorrhagic conversion COMPARISON: Head angio dated 06/25/2021; Ct Stroke Brain Wo Cont dated 06/25/2021 TECHNIQUE: All CT scans are performed using dose optimization technique as appropriate and may inclu de automated exposure control or mA/KV adjustment according to patient size. FINDINGS: No intracranial hemorrhage, hydrocephalus or extra-axial fluid collection.Involving the le ft frontal lobe infarct. This is in a similar distribution to the MRI from 06/26/2021. No evidence of hemorrhagic transformation. The paranasal sinuses and mastoids are clear. The calvarium is intact. IMPRESSION: Evolving acute left frontal lobe infarct with similar distribution and no evidence of he morrhagic transformation appear
[2021-06-26] MEDS: MORPHINE 2 MG/ML SYR IV PRN (20:45)
[2021-06-26] MEDS: ATORVASTATIN 80 MG TAB PO SCH (20:45)
--- NOTE | 2021-06-26 23:39 | PN ---
Date of Progress Note: 06/26/2021 History: The patient was seen this morning for followup, she was lying in bed, not in any distress. She was in ICU and she was admitted yesterday when she came into ER with a stroke. I did discuss details with hospitalist service. When the patient came into the emergency room, the ER staff did not realize that this was my patient, so patient was admitted to the hospitalist service. She did receive tPA in the emergency room because of her acute stroke symptoms. She came in with expressive aphasia. After her treatment, she was admitted to the hospital to ICU. Hemodynamically, she has remained stable overnight. This morning, when I saw her, she basically still continues to have expressive aphasia, but denies any tingling, numbness. She does not have any weakness of upper or lower extremities. Physical Examination: Vital Signs: Reviewed. HEENT: Unremarkable. Lungs: Clear to auscultation. Heart: Heart sounds normal. Abdomen: Soft, bowel sounds normal. No guarding, rigidity, tenderness, distention. Extremity: No leg edema. Neurologic: Significant for expressive aphasia and flattening of right nasolabial fold, but otherwise no focal neurological deficits. Laboratory Data: White count this morning 10.9, hemoglobin 13.3, platelets 270. Sodium 141, potassium 3.7, chloride 111, bicarb 27, BUN 10, creatinine 0.73, glucose 113. Liver function tests unremarkable. LDL cholesterol 106. TSH 0.49. CT angiogram of the neck shows moderate right internal carotid artery and mild left internal carotid artery stenosis. Chest x-ray was unremarkable. Today, MRI showed acute nonhemorrhagic left frontal lobe infarct. Her CT angio of the brain and MRA of intracranial arteries has shown 3 and 4 mm small cerebral aneurysm. Impression: 1. Stroke. 2. Cerebral aneurysm. 3. Hypertension. 4. Hyperlipidemia. 5. Bilateral carotid artery stenosis. 6. Chronic obstructive pulmonary disease. Plan: We will go ahead and continue current high dose statin therapy. The patient will receive anti-platelet therapy per order. Consult Neurology, Dr. Lazaro and details were discussed with him. Consult physical therapy, occupational therapy, speech therapy. We will also consult inpatient rehab. For cerebral aneurysm, Dr. Lazaro has recommended elective outpatient neurosurgical evaluation and will assist her with that at appropriate time. I will see her tomorrow morning for followup. DOLORES/MODL Voice ID: [id number] Report ID: [id number]
--- NOTE | 2021-06-27 01:19 | CON ---
Reason For Consultation: Consultation called because of stroke. History Of Present Illness: Ms. Watts is a 70-year-old patient with hypertension, dyslipid emia, chronic tobacco use, who comes back to our hospital with sudden onset right-sided weakness and expressive aphasia with slurred speech. Symptoms began around 3:30 yesterday afternoon when she was last known to be well. The patient was observed around 4:30 in a phone call to not be able to make s ense when speaking. The patient arrived at [facility] and had a head CT scan and full swapna p, which was remarkable for an NIH Stroke Scale of [address] scan by 5:59 p.m. that is a pproximately 2.5 hours after onset of symptoms. She had no contraindications. She received TNKase a nd had permissive hypertension and no antiplatelet medication and now admission to the ICU for close followup. Speech bedside evaluation did show significant dysphagia for thin liquids. Bedside evalua tion did determine the patient may be able to swallow nectar thick and honey thick material with pure ed diet. She has a modified barium study pending. Her brain MRI done the following day, which is to day identified an expected left frontal lobe cortical based infarct. Her neck MRA showed right inter nal carotid artery stenosis. Her MRA of her head showed a 4 mm aneurysm at the M1 segment on the rig ht. Her echocardiogram showed ejection fraction of 65% and was normal except for mild tricuspid regu rgitation. She was evaluated by Speech, Occupational, and Physical Therapy and determined to be a ca ndidate for aggressive inpatient rehabilitation. Past Medical History: Noted. Past Surgical History: Hysterectomy. Family History: Lives with . Social History: Smokes a pack of cigarettes daily and drinks alcohol regularly. No illegal drug use . Family History: Noncontributory. Current Medications: Aspirin 81 mg daily, Lipitor 80 mg at bedtime, Plavix 75 mg daily, folic acid 1 mg daily, nicotine patch 14 mg daily. Review of Systems: Aside from mentioned above, no recent fevers, chills, nausea, vomiting, myalgias, arthralgias, rash, headache, weight change, or psychiatric issues. Physical Examination: Vital Signs: Blood pressure 151/93, pulse 60, respiratory rate 18, temperature 97.6. Neurologic: Yobani Watts is resting in bed in ICU, appears in no acute distress. She has drooling from the right cor ner of her mouth and she has marked difficulty with labial, lingual, and guttural sounds and mild exp ressive aphasia with difficulty naming objects. She communicates better in writing. She has decreas e of the right nasolabial fold, decreased excursions and smiling. Slight decrease to light touch, te mperature on the right face compared to left. Otherwise, intact cranial nerves. Motor examination i n the right upper extremity 4/5 strength compared to the left 5/5; in right lower extremity around 5- /5 strength, in the left 5/5. Coordination intact, but slow in the upper and lower extremities. Leena underwood was evaluated by Physical Therapy and was able to ambulate 450 feet with a gait belt and contact gu yovany assistance. She did have impulsivity. It was recommended that the patient have aggressive physi zelda therapy to help her recover including very importantly speech therapy along with occupational and physical therapy. Laboratory Studies: Complete blood count with differential is essentially unremarkable. Coagulation panel normal. Chemistries essentially unremarkable. Liver function studies normal. LDL cholestero l 106, HDL cholesterol is 72. TSH 0.497. Urinalysis unremarkable. COVID-19 test is negative. Assessment: Ms. Watts is a 70-year-old patient with hypertension, dyslipidemia, chronic tobacco use, and a left frontal stroke with expressive aphasia, dysarthria, and residual right upper and lower al jamel with face weakness and numbness. She received TNKase and has had repeat head CT scan showing no hemorrhagic conversion and expected evolution of her acute stroke. Plan: 1.Admit to inpatient rehabilitation for aggressive physical, occupational, speech therapy. 2.Aspirin 81 mg and Plavix 75 mg daily. 3.Folic acid 1 mg daily. 4.Lipitor 80 mg at bedtime. 5.At this point, a modified barium study is pending. We will follow after the study and the recomme ndations after the study in terms of diet consistency. 6.Patient may be admitted to the inpatient rehabilitation unit on the fifth floor as soon as jose ALEJANDRE Voice ID: [id number] Report ID: [id number]
[2021-06-27] MEDS: D5 0.45 NS 1,000 ML IV SCH ×2 (02:29→04:16)
[2021-06-27 05:20] LABS: Absolute Lymphocytes (CBC) 1.9 K/uL (0.7-4.9); Hematocrit 38.4 % (36.0-45.0); Lymphocytes % 24.7 % (15.3-44.8); MPV 8.2 fL (7.6-11.3); RBC Red Blood Cell Count 3.78 M/uL (3.86-4.86)
[2021-06-27 05:38] LABS: Albumin 3.4 g/dL (3.4-5.0); Bilirubin Total 0.7 mg/dL (0.2-1.0); Potassium 3.6 mmol/L (3.5-5.1); Protein, Total 6.6 g/dL (6.4-8.2)
[2021-06-27] MEDS ORDERED: KCL 20 MEQ/100 mL IVPB 20 MEQ/100 ML BAG IV ONE (07:00)
[2021-06-27] MEDS ORDERED: lisinopriL 5 MG TAB PO SCH (09:00)
[2021-06-27] MEDS: ASPIRIN EC 81 MG TAB PO SCH (09:42)
[2021-06-27] MEDS: NICOTINE 14 MG/PAT TD SCH (09:42)
[2021-06-27] MEDS: lisinopriL 5 MG TAB PO SCH (09:43)
[2021-06-27] MEDS: CLOPIDOGREL 75 MG TABLET PO SCH (09:43)
[2021-06-27] MEDS: FOLIC ACID 1 MG in NA CHLORIDE 0.9% 50 ML IV SCH (09:44)
[2021-06-27] MEDS: MORPHINE 2 MG/ML SYR IV PRN ×3 (10:33→22:24)
[2021-06-27] MEDS: ONDANSETRON 4 MG/2 ML VIAL IV PRN ×2 (10:38→22:23)
--- NOTE | 2021-06-27 11:23 | RAD REPORT ---
EXAM DESCRIPTION: RAD - Barium Swallow Modified - 06/27/2021 11:14 am CLINICAL HISTORY: cva FINDINGS: Pharyngeal residue vallecular mild with thin,pyriform mild with thin. 1-2 second swallow delay with thin liquids, Moderate dysmotility in superior region of esophageal,mild retropulsion,mild esophageal residue,frequ ent anterior,left or right loss of bolus from oral cavity due to tongue. No aspiration seen Fluoro time:4:49. Twenty-six fluoroscopic spot series obtained
[2021-06-27] MEDS: ATORVASTATIN 80 MG TAB PO SCH (20:28)
[2021-06-27 20:34] VITALS: O2SAT 100
--- NOTE | 2021-06-27 23:12 | PN ---
Subjective: Ms. Watts is still in the ICU. Family is at the bedside. She is in no significant dist ress. She still has marked difficulty with articulation and [id number] expressive aphasia gett ing the right words out. She does better when writing instead of speaking. No pain. Objective: Vital Signs: Blood pressure 133/85, pulse 59, respiratory rate 12 to 19, temperature 98. 6, oxygen saturation 95%. General: Ms. Watts is resting in bed. She has right facial drooping, some drooling from the corner of the right side of the mouth, very poor labial, lingual, and guttural sounds. Significant difficul ty getting expression out, unable to clearly articulate words. She often has to write and still has some difficulty writing the proper words to communicate effectively. She is left handed, and her rig ht body is affected. The right hand has vnta-am-ylrgttjo weakness. There is difficulty manipulating objects, a tendency to lose objects. Extremities: Her strength in the lower extremities, subtle right side weakness, left is fully strong . She has mild decrease in sensation in the right face and right arm, some difficulty with coordinat ion in the right arm left leg. Laboratory Studies: Complete blood count with differential essentially unremarkable. INR 0.97. Tika mistries show a glucose ranging 109 up to 113. Otherwise, sodium, potassium, chloride normal. Liver function studies are normal. LDL cholesterol 106, HDL cholesterol 72, TSH 0.497. Urinalysis unrema rkable. COVID-19 test negative. She had a modified barium swallow study done earlier today. There was moderate dysmotility in the superior region of the esophageal area, mild retropulsion, mild esoph ageal residual, frequent loss of oral bolus due to difficulty moving the tongue. Repeat CT scan afte r she received showed an evolving acute left frontal lobe infarct, similar in distribution at a previous study but no evidence of hemorrhagic transformation. An echocardiogram showed an ejec tion fraction of 65% with mild tricuspid regurgitation. No vegetation. Assessment: Ms. Watts is a 70-year-old patient with a left frontal stroke, producing expressive apha lewis and dysarthria that is moderate up to marked. She has right upper arm weakness, incoordination, and right facial weakness with drooping on the right face. Her legs are stronger bilaterally. She i s requiring contact guard min assist to moderate assist with some activities of daily living. She re quires moderate assist to max assist with cognition and speech and swallowing given her significant d ysarthria and dysphagia. Her comorbid medical conditions are stable. However, she is at high risk o f aspiration pneumonia and requires aggressive speech therapy to help her recover articulation formul ation of oropharyngeal reflexes for proper swallowing and for improving cognitive functioning, especi ally the expressive aphasia. In addition, she requires aggressive occupational therapy to help her r eturn towards a more normal level of functioning for performing activities of daily living, especiall y requiring use of both hands. She is ambulating the distances, and her options for therapy which wo uld be either inpatient or perhaps a long term would be best with inpatient versus and another option given the intensity which she requires. Plan: 1.We will pursue inpatient rehabilitation. 2.Medications; continue Plavix 75 mg daily, aspirin 81 mg daily, Lipitor 80 mg at bedtime, folate 1 mg daily, Prinivil 5 mg daily. She has a Nicoderm patch for tobacco dependency. 3.Aggressive speech, occupational, and physical therapy. 4.The family was told about plans, and a message was left for Dr. Monge, her primary care physician kwan echavarria will follow her while in hospital for medical management. JENNI/LATA Voice ID: [id number] Report ID: [id number]
--- NOTE | 2021-06-27 23:27 | PN ---
Date of Progress Note: 06/27/2021 Subjective: The patient was seen this morning for followup. No new complaints or problems reported by patient. No headache. No tingling or numbness of hands. No weakness of extremities. No trouble swallowing. She still has expressive aphasia. Communication with her today was performed by writing. Objective: Vital Signs: Reviewed. HEENT: Examination unremarkable. Lungs: Clear to auscultation. Heart: Sounds normal. Abdomen: Soft. Bowel sounds normal. No guarding, rigidity, tenderness, distention. 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 Laboratory Data: White count 7.8, hemoglobin 13.2, and platelets 248. Sodium 139, potassium 3.6, chloride 106, bicarb 27, BUN 6, creatinine 0.68, and glucose 109. Liver function tests unremarkable. Impression: 1. Stroke. 2. Carotid artery stenosis, bilateral. 3. Hypertension. 4. Hyperlipidemia. 5. Chronic obstructive pulmonary disease. Plan: We will go ahead and continue current medications. Continue current anti-platelet therapy, statin therapy. Continue current antihypertensive medication and folic acid. Physical Therapy, Occupational Therapy, and Speech Therapies to continue to work with the patient and Inpatient Rehab was consulted today and I did communicate details with the patient's today. I will see her tomorrow for followup. DOLORES/MODL Voice ID: [id number] Report ID: [id number] [email or web address]
[2021-06-28] MEDS: MORPHINE 2 MG/ML SYR IV PRN (04:40)
[2021-06-28 04:44] VITALS: BMI 25.1
[2021-06-28 05:46] LABS: Absolute Lymphocytes (CBC) 1.8 K/uL (0.7-4.9); Hematocrit 35.6 % (36.0-45.0); Lymphocytes % 20.9 % (15.3-44.8); MPV 8.3 fL (7.6-11.3); RBC Red Blood Cell Count 3.51 M/uL (3.86-4.86)
[2021-06-28 06:14] LABS: Albumin 3.1 g/dL (3.4-5.0); Bilirubin Total 0.6 mg/dL (0.2-1.0); Potassium 3.8 mmol/L (3.5-5.1); Protein, Total 6.1 g/dL (6.4-8.2)
[2021-06-28] MEDS ORDERED: HYDROCODONE/APAP 5/325 MG TAB PO PRN (06:40)
[2021-06-28] MEDS: NICOTINE 14 MG/PAT TD SCH (08:44)
[2021-06-28] MEDS: ASPIRIN EC 81 MG TAB PO SCH (08:44)
[2021-06-28] MEDS: CLOPIDOGREL 75 MG TABLET PO SCH (08:45)
[2021-06-28] MEDS: lisinopriL 5 MG TAB PO SCH (08:45)
[2021-06-28] MEDS ORDERED: DULERA 200/5 (MOMETASONE/FORMOTEROL) INHALER IH SCH (09:00)
[2021-06-28] MEDS ORDERED: FOLIC ACID 1 MG TABLET PO SCH (09:00)
[2021-06-28] MEDS ORDERED: POTASSIUM CL SA 10 MEQ TAB PO ONE (09:00)
[2021-06-28 13:42] VITALS: BP 137/73; TEMP 98.5
--- NOTE | 2021-06-28 19:10 | PN ---
Date of Progress Note: 06/28/2021 Subjective: Patient was seen this morning for followup. She was in ICU lying in bed, not in distres s. She still has her expressive aphasia and communication happens in form of writing with her. Heriberto es any chest pain, shortness of breath, nausea, vomiting. She is able to tolerate her mechanical sof t diet well. Objective: Vital Signs: Reviewed. HEENT: Examination unremarkable. Lungs: Clear to auscultation. Heart: Sounds normal. Abdomen: Soft. Bowel sounds normal. No guarding, rigidity, tenderness, distention. Extremities: No leg edema. 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 This is unchanged. No weakness of upper or lower extremity. Impression: 1.Stroke. 2.Hypertension. 3.Chronic obstructive pulmonary disease. Plan: We will continue her Trelegy inhaler for her COPD problem. Continue current antihypertensive medication lisinopril and hold if systolic blood pressure less than 140. We will continue current an ti-platelet therapy, high dose statin therapy and physical therapy, occupational therapy and speech t herapies to work with the patient. Yesterday, I did communicate with Dr. Lazaro from [facility]rology [facility] and he informed me that inpatient rehab feels like she is a good candidate for inpatient rehab t herapy and they are working with insurance company to try to get approval. The patient is medically stable for transfer to go to floor see copy of transfer order for details. I will see her tomorrow f or followup. DOLORES/MODL Voice ID: [id number] Report ID: [id number]
--- NOTE | 2021-06-29 02:19 | PN ---
Subjective: Ms. Watts is still in the ICU. Family is at the bedside. She is in no significant dist ress. She still has marked difficulty with articulation and jqwp-rs-jrvwcxjh expressive aphasia gett ing the right words out. She does better when writing instead of speaking. No pain. Objective: Vital Signs: Blood pressure 133/85, pulse 59, respiratory rate 12 to 19, temperature 98. 6, oxygen saturation 95%. General: Ms. Watts is resting in bed. She has right facial drooping, some drooling from the corner of the right side of the mouth, very poor labial, lingual, and guttural sounds. Significant difficul ty getting expression out, unable to clearly articulate words. She often has to write and still has some difficulty writing the proper words to communicate effectively. She is left handed, and her rig ht body is affected. The right hand has bdil-lo-xfpabadw weakness. There is difficulty manipulating objects, a tendency to lose objects. Extremities: Her strength in the lower extremities, subtle right side weakness, left is fully strong . She has mild decrease in sensation in the right face and right arm, some difficulty with coordinat ion in the right arm compared to the left leg. Laboratory Studies: Complete blood count with differential essentially unremarkable. INR 0.97. Tika mistries show a glucose ranging 109 up to 113. Otherwise, sodium, potassium, chloride normal. Liver function studies are normal. LDL cholesterol 106, HDL cholesterol 72, TSH 0.497. Urinalysis unrema rkable. COVID-19 test negative. She had a modified barium swallow study done earlier today. There was moderate dysmotility in the superior region of the esophageal area, mild retropulsion, mild esoph ageal residual, frequent loss of oral bolus due to difficulty moving the tongue. Repeat CT scan afte r she received showed an evolving acute left frontal lobe infarct, similar in distribution at a previous study but no evidence of hemorrhagic transformation. An echocardiogram showed an ejec tion fraction of 65% with mild tricuspid regurgitation. No vegetation. Assessment: Ms. Watts is a 70-year-old patient with a left frontal stroke, producing expressive apha lewis and dysarthria that is moderate up to marked. She has right upper arm weakness, incoordination, and right facial weakness with drooping on the right face. Her legs are stronger bilaterally. She i s requiring contact guard min assist to moderate assist with some activities of daily living. She re quires moderate assist to max assist with cognition and speech and swallowing given her significant d ysarthria and dysphagia. Her comorbid medical conditions are stable. However, she is at high risk o f aspiration pneumonia and requires aggressive speech therapy to help her recover articulation formul ation of oropharyngeal reflexes for proper swallowing and for improving cognitive functioning, especi ally the expressive aphasia. In addition, she requires aggressive occupational therapy to help her r eturn towards a more normal level of functioning for performing activities of daily living, especiall y requiring use of both hands. She is ambulating the distances, and her options for therapy which wo uld be either inpatient or perhaps a custodial would be best with inpatient versus and another option given the intensity which she requires. Plan: 1.We will pursue inpatient rehabilitation. 2.Medications; continue Plavix 75 mg daily, aspirin 81 mg daily, Lipitor 80 mg at bedtime, folate 1 mg daily, Prinivil 5 mg daily. She has a Nicoderm patch for tobacco dependency. 3.Aggressive speech, occupational, and physical therapy. 4.The family was told about plans, and a message was left for Dr. Monge, her primary care physician kwan echavarria will follow her while in hospital for medical management. JENNI/LATA Voice ID: [id number] Report ID: [id number]
[2021-06-29] MEDS ORDERED: [UNRECOGNIZED DRUG - OTHER] IH SCH (09:00)
== END 2021-06-28 18:10 | DRG 62 ==
LOC: ER 17:24 → ERHOLD 18:37 → 3RD-ICU 19:38 → 2ND 06-28 11:55
PROVIDERS: ADMIT Internal Medicine; ATTEND Internal Medicine
DX: I63.9 Cerebral infarction, unspecified (principal); G81.93 Hemiplegia, unspecified affecting right nondominant side; I10 Essential (primary) hypertension; R47.01 Aphasia; E78.5 Hyperlipidemia, unspecified; R29.810 Facial weakness; R29.704 NIHSS score 4; R47.1 Dysarthria and anarthria; I67.1 Cerebral aneurysm, nonruptured; I65.23 Occlusion and stenosis of bilateral carotid arteries; J44.9 Chronic obstructive pulmonary disease, unspecified; Z20.822 Contact with and (suspected) exposure to COVID-19
CPT/HCPCS: 36415; 70450; 70496; 70498; 70544; 70549; 70553; 71045; 74230; 80048; 80053; 80061; 81003; 82565; 82947; 84439; 84443; 85025; 85610; 85730; 92523; 92610; 92611; 92977; 93005; 93306; 93880; 96365; 97112; 97116; 97161; 97165; 97530; 99291; A9577; J2270; J2405; J3101; J3480; J7050; J7799; Q9967; U0003

== ENCOUNTER 2021-06-28 18:45 | Inpatient (IN) | payer BC, OTHER ==
--- NOTE | 2021-06-28 16:01 | R.PREADM ---
PRE-ADMISSION SCREENING FORM SCREENING DATE AND TIME 06/28/2021 10:00 (CDT) ANTICIPATED REHAB ADMISSION DATE 06/30/2021 REFERRING FACILITY [facility] REFERRAL DATE AND TIME 06/28/2021 10:00 (CDT) REFERRAL ROOM# ICU-8 ACUTE ADMIT DATE 06/25/2021 Previous Rehabilitation(s): No. 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 Charlie Monge REFERRING PHYSICIAN Dr. Charlie Monge REHAB FACILITY [facility] CLINICAL LIAISON Adi Graves PHYSICIAN REVIEWER Dr. Mike Lazaro M.D. MR# [id number] NAME CESAR RAO ADDRESS [address] [place] [address] PHONE [facility] [id number] DATE OF 1950 AGE 70 SSN# [id number] GENDER female MARITAL STATUS RACE white ADMIT FROM 02 - [email or web address] PRE-HOSPITAL LIVING SETTING 01 - Home (private home/apt. board/care, assisted living, [place] [facility], transitional living) HOME TYPE AND DETAILS Type of home: single family house # of levels in the residence: 1 # of steps within the residence: 0 # of steps to enter the residence: 0 PRE-HOSPITAL LIVING WITH Alone FAMILY SUPPORT Limited PRIMARY FAMILY CONTACT NAME Rishi Rao PRIMARY FAMILY CONTACT PHONE PHONE PRIMARY FAMILY CONTACT ON ADM.? no IS PRIMARY FAMILY CONTACT AUTH. REP.? no 1ST EMERGENCY CONTACT Rishi Rao 1ST CONTACT PHONE PHONE 1ST CONTACT ON ADM. no IS 1ST CONTACT AUTH. REP.? no PHONE 2ND CONTACT ON ADM.? no PATIENT EMPLOYMENT STATUS Retired (for age) PATIENT EMPLOYER No Employer PAYOR INFORMATION: 1ST PAYOR NAME [employer] OOS 1ST PAYOR PHONE [phone] 1ST PAYOR 1ST PAYOR POLICY GROUP [id number] 2ND PAYOR NAME Medicare 2ND PAYOR PHONE 2ND PAYOR INJURY/ILLNESS DUE TO ACCIDENT? No ANOTHER GREEN PARTY RESPONSIBLE? No PRIMARY REHAB/ACUTE DIAGNOSIS: Acute left frontal lobe cortical infarcts ONSET DATE 06/25/2021 REHAB IMPAIRMENT CATEGORY (YUNIOR): 01 Stroke (STR) MEETS 60% rule AFFECTED EXTREMITIES: RLE, and RUE PRIMARY DIAGNOSIS-RELATED SURGERIES: No surgeries related to the primary diagnosis were performed. INTERVENTIONS: - HTN Blood pressure will be regularly assessed and medications administered as per physician recommendatio ns. Appropriate BP range needs to be maintained to ensure optimal brain healing - Hyperlipidemia Administer medications as per MD - COPD Educate pt on use of incentive spirometer and deep breathing exercises Protection of Airway due to severe dysarthria and issues with swallowing - Severe Oral Dysphagia Aggressive Speech Therapy to enhance to performance and prevent aspiration and reduce risk for pneumo jose martin - Severe Dysarthria Aggressive Speech Therapy to provide patient the ability to communicate - Mild Aphasia Aggressive Speech Therapy to provide patient the ability to communicate - Impulsivity Aggressive PT, OT, and Speech services to improve patient safety and reduce impulsivity. - Chronic Back Pain Monitor symptoms and manage with medication as per physician guidance Therapeutic activities and exercise to improve function and reduce pain. - Mild Pharyngeal Dysphagia Aggressive Speech Therapy to enhance to performance and prevent aspiration and reduce risk for pneumo jose martin RISK FOR COMPLICATIONS: - CVA pt has history of CVA and 2 present cerebral aneurysms. Will monitor blood pressure and manage with medication. - Falls Educated pt on fall prevention strategies to reduce/eliminate fall risk Patient will be evaluated for Fall Precautions and will be placed on Fall Precautions as indicated pe r protocol. pt is high risk for falls due to impulsivity and reduced safety awareness - Aspiration Aggressive Speech therapy will be provided due to severe oral dysphagia and mild pharyngeal dysphagia . - Pneumonia TRANSCRIPTION will provide aggressive therapeutic services to improve pt's ability to safely swallow due to pat ient's severe oral dysphagia and mild pharyngeal dysphagia. - Skin Breakdown Nursing will assess skin daily using assessment tool and will place on Skin Breakdown Precautions as Indicated per protocol - Pain Clinical staff will assess patient's pain level every shift per protocol to monitor for pain manageme nt effectiveness Educate patient on pain management strategies SUMMARY OF ACUTE HOSPITALIZATION: Pt. is a 70 yo Left-handed white female. On 06/25/2021 Pt. presented to [facility] with sudden onset of right-side weakness. On 06/25/2021 she was admitted to [facility] with diagnosis Acute left frontal lobe cortical infarcts. Her impairment category is Stroke 01 - Right Body (Left Brain) (01.2). Pre-morbidly, Pt. was independent/mod-I in Locomotion, Safety Awareness, Social Cognition, Balance, T ransfers Control, Sphincter Control, Self-Care, and Communication; and she had good Endurance. Currently, she has deficits of Safety Awareness, Social Cognition, Balance, Self-Care, Communication, and Transfers Control. Pt. is now referred to [facility] for acute in-patient rehabilitation in order to maximize patient's functional independence in activities of daily living, strength, ROM, and mobi lity. Patient has realistic goal of being discharged at assistance level 7-Ind to reside at Home with Pt s elf. Ms. Rao is a 70 year old female who lives primarily by herself in a single story home. Her is primarily out of town for work, which requires Ms. Rao to be independent withall activities suc h as self-cares, cooking, cleaning, mobility, caring for her dog, and communication. On 06/25/2021, Ms Boyd Rao suffered multiple left frontal lobe cortical infarcts leaving her with severe communication d eficits, severe swallowing deficits, impaired safety awareness, reduced balance, and significant impu lsivity. Although she is able to ambulate significant distances and transfer without the need for phy sical lifting, she exhibits poor safety awareness and impulsivity, which generates a high risk for se russell injury and falls. At this time, Ms. Rao presents with severe dysarthria and is unable to effe ctively communicate at all verbally. She can communicate with writing with some mild impairment. Th is poses a significant safetyrisk for Ms. Rao to return home. If she were to be at home and needed to contact someone for an issue, she would be unable to effectively communicate the necessary inform ation, especially in an emergency situation, due to the language and communication deficits. She als o presents with severe oral dysphagia and mild pharyngeal dysphagia putting her and significant risk for aspiration with resulting pneumonia due to her COPD. Ms. Rao requires supervision for safe chew ing and swallowing practices at this time. She is also on a modified diet of pureed food to help acc ommodate. If she were to return home by herself at this point, she would be a significant safety ris k for choking, aspiration, pneumonia, and malnutrition. Due to her impaired safety awareness, impuls ivity, and impaired dynamic balance, Ms. Rao is unable to safely perform self-care and ADL activiti es in her home environment independently. She is at high risk for falls or other bodily injuries if tasked with cooking and cleaning activities, which she is responsible for in her home environment. At this point, Ms. Rao would most directly benefit from a minimum of aggressive 3 hours of daily ther apy split between speech therapy,occupational therapy, and physical therapy in the acute inpatient re hab setting. Discharging home with home health or outpatient therapy services would not provide Ms. Rao with enough services for what her immediate needs are in order to ensure patient safety and per [facility] Ms. Rao to return toward her baseline function. She currently presents as medically stable wit h relatively stable lab work. She is in need of 24 hour nursing, doctor supervision and oversight while receiving active and ongoing intensive Speech, OT, and PT services. Ms. Rao is reasonably ex pected to participate in a minimum of 3 hours of therapy a day/15 hours per week and receive care wit h intensive interdisciplinary approach. COVID-19 screening performed; spoke with patient in person. S he denies new onset of fever, cough,difficulty breathing, sore throat, body aches and non-allergy juliana al congestion in the past 24 hours. She denies travel outside of [place] in the past 14 days. She lemuel es any contact with someone who has a confirmed diagnosis of or is under investigation for COVID-19 i n the past14 days. Ms. Rao tested negative for COVID- 19 on 06/25. PAST MEDICAL HISTORY Essential (primary) hypertension (I10) Hyperlipidemia, unspecified (E78.5) Bilateral Carotid Artery Stenosis Chronic obstructive pulmonary disease, unspecified (J44.9) Cerebral aneurysm, nonruptured (I67.1) x2 Chronic Back Pain Severe dysarthria following MEDICATION ALLERGIES: No Known Drug Allergies (NKDA) ENVIRONMENTAL ALLERGIES: - Substance Allergies None Known - Other Allergies None Known CODE STATUS: Full code WEIGHT/HEIGHT/BMI: WEIGHT 146 lbs HEIGHT 5' 4" BMI 25.1 DIET: - Diet Type Regular - Diet - Solid Texture Regular - Diet - Liquid Texture Regular - Tube Feed N/A SKIN DIAGRAM: Aching Back pain; level - 8. REVIEW OF SYSTEMS: - Gen Alert and awake Lying in bed No apparent distress Oriented to: person, time, and place - Vital Signs Temperature: 97.3 F SBP/DBP: 124/96 Pulse: 68 Resp: 13 Vital signs stable, afebrile - CVS RRR VITAL SIGNS Temperature: 97.3 F SBP/DBP: 124/96 Pulse: 68 Resp: 13 Vital signs stable, afebrile MEDICATIONS/TREATMENT: Other- See attached MAR (Medication Administration Record). CURRENT SPHINCTER CONTROL: Pre-hospital bladder status: unspecified # of bladder accidents in the last 7 days prior to screenin Pre-hospital bowel status: unspecified # of bowel accidents in the last 7 days prior to screenin Last Bowel Movement Date: 06/28/2021 CURRENT LOCOMOTION STATUS: distance walked 500 feet DETAILED CURRENT FUNCTIONAL STATUS: - Bladder accident frequency: 7-Ind - No accidents in the past 7 days - Bowel accident frequency: 7-Ind - No accidents in the past 7 days - Walking score based on distance walked: 0(N/A) score based on distance walked: 3(>=150ft) - Wheelchair score based on distance traveled: 0(N/A) QI SCORES: - Self-Care A. Eating 04-Supervision or touching assistance B. Oral hygiene 03-Partial/moderate assistance C. Toileting hygiene 03-Partial/moderate assistance E. Shower/bathe self 04-Supervision or touching assistance F. Upper body dressing 04-Supervision or touching assistance G. Lower body dressing 03-Partial/moderate assistance H. Putting on/taking off footwear 03-Partial/moderate assistance - Mobility A. Roll left and right 06-Independent B. Sit to lying 06-Independent C. Lying to sitting on side of bed 06-Independent D. Sit to stand 04-Supervision or touching assistance E. Chair/apd-vm-yzesm transfer 04-Supervision or touching assistance F. Toilet transfer 04-Supervision or touching assistance G. Car transfer 10-Not attempted due to environmental limitations I. Walk 10 feet 04-Supervision or touching assistance J. Walk 50 feet with two turns 04-Supervision or touching assistance K. Walk 150 feet 04-Supervision or touching assistance L. Walking 10 feet on uneven surfaces 10-Not attempted due to environmental limitations M. 1 step (curb) 10-Not attempted due to environmental limitations N. 4 steps 10-Not attempted due to environmental limitations O. 12 steps 10-Not attempted due to environmental limitations P. Picking up object 03-Partial/moderate assistance R. Wheel 50 feet with two turns 09-Not applicable S. Wheel 150 feet 09-Not applicable - Bladder and Bowel Bladder continence 0-Always continent Bowel continence 0-Always continent - Endurance Good - Balance Fair - Safety Awareness Poor CURRENT FUNC. DEFICITS: Self-Care, Balance, Safety Awareness, and Mobility HISTORY OF FALLS. HAS THE PATIENT HAD TWO OR MORE FALLS IN THE PAST YEAR OR ANY FALL WITH INJURY IN T HE PAST YEAR?: No PRIOR SURGERY. DID THE PATIENT HAVE MAJOR SURGERY DURING THE 100 DAYS PRIOR TO ADMISSION?: No THERAPY NOTES FROM ACUTE CARE: Attached. SPECIAL NEEDS: - Safety Concerns Skin breakdown precautions needed due to skin breakdown risk PRECAUTIONS: - Swallowing pt requires supervision and is on a modified diet of pureed during meal time for safe swallowing PATIENT NEEDS ACTIVE AND ONGOING THERAPEUTIC INTERVENTION OF MULTIPLE THERAPY DISCIPLINES, INCLUDING: - Dietary and Nutrition Adequate Nutrition. Nutritional Education. Nutritional Supplements. - Occupational Therapy Cognitive Retraining. Patient needs Occupational Therapy for a daily minimum of 1.5 hours at least 5 out of 7 days, to improve Activities of Daily Living, including: Eating, Grooming, Bathing, Dressing, Toileting, Toilet Transfers, Community Reintegration, Higher functional activities, Adaptive Equipme nt, Splinting, Household Tasks, and Other activities as determined. Visual Perceptual Training. - Speech Therapy Cognitive Training. Expressive Language Skills. Memory Strategies. Patient needs Speech Therapy for a daily minimum of 1 hours at least 5 out of 7 days, to improve: Swallowing, Cognition, Language Skill s, and Compensatory Strategies. Receptive Language Skills. Speech Intelligibility Training. - Physical Therapy Patient needs Physical Therapy for a daily minimum of 1 hours at least 5 out of 7 days, to improve: M obility, Strengthening, Transfers, Stretching, ROM, Endurance, Ability to manage stairs, Gait, and Ba dalila. PATIENT NEEDS CLOSE MEDICAL SUPERVISION BY A REHABILITATION PHYSICIAN FOR: Coordination of Treatment Team Medical and Co-Morbidity Management Respiratory/Airway Management Pain Management PATIENT REQUIRES 24X7 REHAB NURSING FOR MEDICAL AND FUNCTIONAL MGT. OF THE FOLLOWING DEFICITS: Disease Management Medication Management Patient requires 24x7 Rehabilitation Nursing for: Pain Issues, Identifying and preventing risk factor s, Monitoring and reporting current medical conditions, Assisting with ambulation and transfer, Ryann ting with all ADL-s, Teaching patients about disease process and medications, Family teaching, Provid ing safe environment, Bowel and Bladder Issues, Skin Integrity, and Medication Management Patient/Family Education Providing Safe Environment Skin Integrity Pain Management Bowel and Bladder Management PATIENT REQUIRES INTENSIVE, COORDINATED INTERDISCIPLINARY APPROACH TO REHAB: Arranging Home Equipment/Services Discharge Planning Family Intervention/Training Patient needs Dietary and Nutrition Services for: Adequate Nutrition, Nutritional Supplements, and Nu tritional Education Patient needs Construction Services Technician and/or Case Management for: Discharge Planning, Arranging Home Equipmen t or Services, and Family Interventions Construction Services Technician/Case Management PATIENT REHAB POTENTIAL: Dinesh RAO is able and expected to receive 3 hours of individualized therapy daily on at least 5 of jorge ry 7 days Dinesh RAO's prognosis for significant practical improvement within a reasonable period of time appears Good Expected level of measurable improvement will be of a practical value to Dinesh RAO's functional capaci ty or adaptations to impairments Has a viable Discharge Plan Medically appropriate; condition is sufficiently stable to participate in intensive rehab program DISCHARGE PLAN: - Estimated Length of Stay (days) 17. - Consensus on plan Discharge plan has been discussed with primary caregiver. Patient/Family is in agreement with the krystian n. Primary caregiver is in agreement with the plan. - Patient/Family Goals Return home independently. - Planned Living Setting Upon Discharge Home, to live alone. Primary caregiver: Pt self. RECOMMENDED CARE LEVEL: IRF RECOMMENDATION DETAILS: Recommended Admission to Comprehensive Rehabilitation Program to Increase Functional Yancey SCREENER'S COMPLETENESS CONFIRMATION: - Screening Confirmation The patient data collection on this preadmission screening form is finished PHYSICIANS REVIEW AND ADMISSION DETERMINATION Admit - Based on my review of the Pre-Admission Screening results, in my medical judgment and experie nce, I concur with the findings and recommend admission to [facility], as this patient requires an IRF level of care. SIGNATURE PANEL: Shake Splitter - [electronically] signed by Adi Graves PT on 06/28/2021 at 15:56 (CDT) Clinical Liaison - [electronically] signed by Dr. Mike Lazaro M.D. on 06/28/2021 at 16:00 (CDT) Physician Reviewer - [electronically] signed by Dr. Mike Lazaro M.D. on 06/28/2021 at 16:00 (CDT )
[2021-06-28] MEDS ORDERED: ONDANSETRON 4 MG/2 ML VIAL IV PRN (19:13)
[2021-06-28] MEDS: HYDROCODONE/APAP 5/325 MG TAB PO PRN (20:53)
[2021-06-28] MEDS: ATORVASTATIN 80 MG TAB PO SCH (21:00)
[2021-06-28 21:25] LABS: Urine Appearance Clear (Clear); Urine Blood Negative (Negative); Urine Color Yellow (Yellow); Urine Glucose Negative (Negative); Urine Protein Negative (Negative); Urine pH 6.5 (5.0-7.0)
[2021-06-28 21:51] LABS: Urine Microscopic Reflex ORDER UMIC
[2021-06-28 21:58] LABS: Calcium Oxalate Crystals- Ur FEW (NONE SEEN); Urine Bacteria 20-50 /HPF (<20); Urine Mucus MOD /HPF (NONE SEEN); Urine RBC NONE SEEN /HPF (NONE SEEN)
[2021-06-28 22:17] LABS: Urine Bilirubin ND (Negative)
[2021-06-29 04:33] LABS: Absolute Lymphocytes (CBC) 1.6 K/uL (0.7-4.9); Hematocrit 35.2 % (36.0-45.0); Lymphocytes % 24.6 % (15.3-44.8); MPV 7.7 fL (7.6-11.3); RBC Red Blood Cell Count 3.48 M/uL (3.86-4.86)
[2021-06-29 04:59] LABS: Albumin 3.1 g/dL (3.4-5.0); Magnesium 1.8 mg/dL (1.8-2.4); Prealbumin 16.4 mg/dL (20-40)
[2021-06-29] MEDS: NICOTINE 14 MG/PAT TD SCH (07:40)
[2021-06-29] MEDS: CLOPIDOGREL 75 MG TABLET PO SCH (07:40)
[2021-06-29] MEDS: ASPIRIN EC 81 MG TAB PO SCH (07:40)
[2021-06-29] MEDS: FOLIC ACID 1 MG TABLET PO SCH (07:40)
[2021-06-29] MEDS: lisinopriL 5 MG TAB PO SCH (07:41)
[2021-06-29] MEDS ORDERED: ASPIRIN EC 81 MG TAB PO SCH (08:00)
[2021-06-29] MEDS: TRELEGY ELLIPTA IH SCH (09:10)
[2021-06-29] MEDS ORDERED: MELATONIN 3 MG TABLET PO PRN (13:51)
[2021-06-29] MEDS: DOCUSATE NA 100 MG CAP PO SCH (14:01)
[2021-06-29 15:27] VITALS: BMI 23.1
[2021-06-29] MEDS: ENOXAPARIN 30 MG/0.3 ML SQ SCH (16:19)
[2021-06-29] MEDS: HYDROCODONE/APAP 5/325 MG TAB PO PRN ×2 (16:19→22:28)
[2021-06-29] MEDS ORDERED: ONDANSETRON 4 MG (ODT) TAB PO PRN (19:34)
[2021-06-29] MEDS ORDERED: PANTOPRAZOLE 40MG TABLET PO ONE (19:37)
[2021-06-29] MEDS: ATORVASTATIN 80 MG TAB PO SCH (19:47)
--- NOTE | 2021-06-29 21:53 | R.HP ---
HISTORY AND PHYSICAL FACILITY: [facility] ENCOUNTER DATE AND TIME: 06/28/2021 16:40 (CDT) MR#: [id number] NAME CESAR RAO ADDRESS: [address] [place] [address]: [place]IP [id number] PHONE: DATE OF : 1950 AGE: 70 SSN# [id number] GENDER: Female DEXTERITY Left-handed MARITAL STATUS RACE White PRE-HOSPITAL LIVING SETTING 01 - Home (private home/apt. board/care, assisted living, longterm, transitional living) PRE-HOSPITAL LIVING WITH Alone ENCOUNTER PHYSICIAN: Dr. Mike Lazaro M.D. REFERRING DOCTOR: Dr. Charlie Monge DATE OF ADMISSION: 06/28/2021 16:35 (CDT) REFERRING FACILITY [facility] HOME TYPE AND DETAILS: Type of home: single family house # of levels in the residence: 1 # of steps within the residence: 0 # of steps to enter the residence: 0 ONSET DATE: 06/25/2021 PRIMARY DIAGNOSIS-RELATED SURGERIES: No surgeries related to the primary diagnosis were performed. HISTORY OF PRESENT ILLNESS (HPI): Pt. is a 70 yo Left-handed white female. On 06/25/2021 Pt. presented to [facility] with sudden onset of right-side weakness. On 06/25/2021 she was admitted to [facility] with diagnosis Acute left frontal lobe cortical infarcts. Her impairment category is Stroke 01 - Right Body (Left Brain) (01.2). Pre-morbidly, Pt. was independent/mod-I in Locomotion, Safety Awareness, Social Cognition, Balance, T ransfers Control, Sphincter Control, Self-Care, and Communication; and she had good Endurance. Currently, she has deficits of Safety Awareness, Social Cognition, Balance, Self-Care, Communication, and Transfers Control. Pt. is now referred to [facility] for acute in-patient rehabilitation in order to maximize patient's functional independence in activities of daily living, strength, ROM, and mobi lity. Patient has realistic goal of being discharged at assistance level 7-Ind to reside at Home with Pt s elf. Ms. Rao is a 70 year old female who lives primarily by herself in a single story home. Her is primarily out of town for work, which requires Ms. Roa to be independent withall activities suc h as self-cares, cooking, cleaning, mobility, caring for her dog, and communication. On 06/25/2021, Ms Boyd Rao suffered multiple left frontal lobe cortical infarcts leaving her with severe communication d eficits, severe swallowing deficits, impaired safety awareness, reduced balance, and significant impu lsivity. Although she is able to ambulate significant distances and transfer without the need for phy sical lifting, she exhibits poor safety awareness and impulsivity, which generates a high risk for se russell injury and falls. At this time, Ms. Rao presents with severe dysarthria and is unable to effe ctively communicate at all verbally. She can communicate with writing with some mild impairment. Th is poses a significant safetyrisk for Ms. Rao to return home. If she were to be at home and needed to contact someone for an issue, she would be unable to effectively communicate the necessary inform ation, especially in an emergency situation, due to the language and communication deficits. She als o presents with severe oral dysphagia and mild pharyngeal dysphagia putting her and significant risk for aspiration with resulting pneumonia due to her COPD. Ms. Rao requires supervision for safe chew ing and swallowing practices at this time. She is also on a modified diet of pureed food to help acc ommodate. If she were to return home by herself at this point, she would be a significant safety ris k for choking, aspiration, pneumonia, and malnutrition. Due to her impaired safety awareness, impuls ivity, and impaired dynamic balance, Ms. Rao is unable to safely perform self-care and ADL activiti es in her home environment independently. She is at high risk for falls or other bodily injuries if tasked with cooking and cleaning activities, which she is responsible for in her home environment. At this point, Ms. Rao would most directly benefit from a minimum of aggressive 3 hours of daily ther apy split between speech therapy,occupational therapy, and physical therapy in the acute inpatient re hab setting. Discharging home with home health or outpatient therapy services would not provide Ms. Rao with enough services for what her immediate needs are in order to ensure patient safety and per [facility] Ms. Rao to return toward her baseline function. She currently presents as medically stable wit h relatively stable lab work. She is in need of 24 hour nursing, doctor supervision and oversight while receiving active and ongoing intensive Speech, OT, and PT services. Ms. Rao is reasonably ex pected to participate in a minimum of 3 hours of therapy a day/15 hours per week and receive care wit h intensive interdisciplinary approach. COVID-19 screening performed; spoke with patient in person. S he denies new onset of fever, cough,difficulty breathing, sore throat, body aches and non-allergy juliana al congestion in the past 24 hours. She denies travel outside of [place] in the past 14 days. She lemuel es any contact with someone who has a confirmed diagnosis of or is under investigation for COVID-19 i n the past14 days. Ms. Rao tested negative for COVID- 19 on 06/25. MEDICATION ALLERGIES: No Known Drug Allergies (NKDA) ENVIRONMENTAL ALLERGIES: - Substance Allergies None Known - Other Allergies None Known PAST MEDICAL HISTORY: Essential (primary) hypertension (I10) Hyperlipidemia, unspecified (E78.5) Bilateral Carotid Artery Stenosis Chronic obstructive pulmonary disease, unspecified (J44.9) Cerebral aneurysm, nonruptured (I67.1) x2 Chronic Back Pain Severe dysarthria following SOCIAL HISTORY: - Home Living Alone REVIEW OF SYSTEMS: - Gen No Chills Fatigue No Fever - Eyes No Double Vision No itchiness - ENMT Difficulty Swallowing - CVS No Chest Discomfort No Chest Pain Fatigue No Weight Gain - Resp No Cough Shortness of Breath - GI Continent No Abdominal Pain No Constipation No Diarrhea - Continent No Kidney Pain No Painful Urination No Urinary Urgency - MSK No Joint Pain No Muscle Cramps Stiffness - Skin No Itching No Rash No Suspicious Lesions - Neuro Coordination Difficulty Difficulty with Concentration No Memory Loss No Seizures Weakness - Psych No Anxiety Depression No HIV Exposure No Persistent Infections No Seasonal Allergies - Endo No Cold/Heat Intolerance No Excessive Hunger No Excessive Thirst No Excessive Urination PHYSICAL EXAM - Gen Alert and awake Lying in bed No apparent distress Oriented to: person, time, and place - Skin No breakdown Normacephalic - Eyes No abnormalities - ENMT No abnormalities - Neck No abnormalities - CVS RRR - Chest mild decrease in breath sounds - Resp No wheezing - Abd Soft - GI Non distended Deferred - No abnormalities - Ext Mild bilateral lower extremity edema. - MSK 3/5 right facial weakness 4+/5 weakness in right upper and lower extremities. - Neuro 3/5 right facial weakness 4+/5 weakness in right upper and lower extremities, dysarthria, dysphagia - Psych Mild depression. VITAL SIGNS Temperature: 97.6 F SBP/DBP: 124/127/92 Pulse: 74 Resp: 16 NURSING: - Shower allowing shower - Bladder care per protocol - Skin care per protocol PRECAUTIONS: - Swallowing pt requires supervision and is on a modified diet of pureed during meal time for safe swallowing ACTIVITIES OOB only with supervision QI SCORES: - Self-Care A. Eating 04-Supervision or touching assistance B. Oral hygiene 03-Partial/moderate assistance C. Toileting hygiene 03-Partial/moderate assistance E. Shower/bathe self 04-Supervision or touching assistance F. Upper body dressing 04-Supervision or touching assistance G. Lower body dressing 03-Partial/moderate assistance H. Putting on/taking off footwear 03-Partial/moderate assistance - Mobility A. Roll left and right 06-Independent B. Sit to lying 06-Independent C. Lying to sitting on side of bed 06-Independent D. Sit to stand 04-Supervision or touching assistance E. Chair/[id number] transfer 04-Supervision or touching assistance F. Toilet transfer 04-Supervision or touching assistance G. Car transfer 10-Not attempted due to environmental limitations I. Walk 10 feet 04-Supervision or touching assistance J. Walk 50 feet with two turns 04-Supervision or touching assistance K. Walk 150 feet 04-Supervision or touching assistance L. Walking 10 feet on uneven surfaces 10-Not attempted due to environmental limitations M. 1 step (curb) 10-Not attempted due to environmental limitations N. 4 steps 10-Not attempted due to environmental limitations O. 12 steps 10-Not attempted due to environmental limitations P. Picking up object 03-Partial/moderate assistance R. Wheel 50 feet with two turns 09-Not applicable S. Wheel 150 feet 09-Not applicable - Bladder and Bowel Bladder continence 0-Always continent Bowel continence 0-Always continent - Endurance Good - Balance Fair - Safety Awareness Poor CURRENT FUNC. DEFICITS: Self-Care, Balance, Safety Awareness, and Mobility MEDICATIONS: - Other See attached MAR (Medication Administration Record) ASSESSMENT: Pt. is a 70 yo Left-handed white female.On 06/25/2021 Pt. presented to [facility] w ith sudden onset of right-side weakness.On 06/25/2021 she was admitted to [facility] with diagnosis Acute left frontal lobe cortical infarcts.Her impairment category is Stroke 01 - Ri ght Body (Left Brain) (01.2).Pre-morbidly, Pt. was independent/mod-I in Locomotion, Safety Awareness, Social Cognition, Balance, Transfers Control, Sphincter Control, Self-Care, and Communication; and s he had good Endurance.Currently, she has deficits of Safety Awareness, Social Cognition, Balance, Erlinda f-Care, Communication, and Transfers Control.Pt. is now referred to [facility] for acute in-patient rehabilitation in order to maximize patient's functional independence in activi ties of daily living, strength, ROM, and mobility.- Rehab Goal Patient has realistic goal of being discharged at assistance level 7-Ind to reside at Home with Pt s elf. Ms. Rao is a 70 year old female who lives primarily by herself in a single story home. Her is primarily out of town for work, which requires Ms. Rao to be independent withall activities suc h as self-cares, cooking, cleaning, mobility, caring for her dog, and communication. On 06/25/2021, Ms Boyd Rao suffered multiple left frontal lobe cortical infarcts leaving her with severe communication d eficits, severe swallowing deficits, impaired safety awareness, reduced balance, and significant impu lsivity. Although she is able to ambulate significant distances and transfer without the need for phy sical lifting, she exhibits poor safety awareness and impulsivity, which generates a high risk for se russell injury and falls. At this time, Ms. Rao presents with severe dysarthria and is unable to effe ctively communicate at all verbally. She can communicate with writing with some mild impairment. Th is poses a significant safetyrisk for Ms. Rao to return home. If she were to be at home and needed to contact someone for an issue, she would be unable to effectively communicate the necessary inform ation, especially in an emergency situation, due to the language and communication deficits. She als o presents with severe oral dysphagia and mild pharyngeal dysphagia putting her and significant risk for aspiration with resulting pneumonia due to her COPD. Ms. Rao requires supervision for safe chew ing and swallowing practices at this time. She is also on a modified diet of pureed food to help acc ommodate. If she were to return home by herself at this point, she would be a significant safety ris k for choking, aspiration, pneumonia, and malnutrition. Due to her impaired safety awareness, impuls ivity, and impaired dynamic balance, Ms. Rao is unable to safely perform self-care and ADL activiti es in her home environment independently. She is at high risk for falls or other bodily injuries if tasked with cooking and cleaning activities, which she is responsible for in her home environment. At this point, Ms. Roa would most directly benefit from a minimum of aggressive 3 hours of daily ther apy split between speech therapy,occupational therapy, and physical therapy in the acute inpatient re hab setting. Discharging home with home health or outpatient therapy services would not provide Ms. Rao with enough services for what her immediate needs are in order to ensure patient safety and per du Ms. Rao to return toward her baseline function. She currently presents as medically stable wit h relatively stable lab work. She is in need of 24 hour nursing, doctor supervision and oversight while receiving active and ongoing intensive Speech, OT, and PT services. Ms. Rao is reasonably ex pected to participate in a minimum of 3 hours of therapy a day/15 hours per week and receive care wit h intensive interdisciplinary approach. COVID-19 screening performed; spoke with patient in person. S he denies new onset of fever, cough,difficulty breathing, sore throat, body aches and non-allergy juliana al congestion in the past 24 hours. She denies travel outside of [place] in the past 14 days. She lemuel es any contact with someone who has a confirmed diagnosis of or is under investigation for COVID-19 i n the past14 days. Ms. Rao tested negative for COVID- 19 on 06/25.REHAB PLAN: for Dementia, TBI, Stroke, or others - Physical Therapy Gait dysfunction - to improve, our physical therapists will perform initial evaluation of pt's status upon admission and devise an individualized program for Gait Training, and Wheel Chair mobility Inability to transfer - to improve, our physical therapists will perform initial evaluation of pt's s tatus upon admission and devise an individualized program for Bed mobility Need for home safety evaluation - to improve, our physical therapists will perform initial evaluation of pt's status upon admission and devise an individualized program for Home Evaluation Need in caregiver upon discharge - to improve, our physical therapists will perform initial evaluatio n of pt's status upon admission and devise an individualized program for Caregiver Training Edema - to improve, our physical therapists will perform initial evaluation of pt's status upon admi ssion and devise an individualized program for Elevation Training, and Lymphedema Therapy New precaution - to improve, our physical therapists will perform initial evaluation of pt's status u adam admission and devise an individualized program for Patient precaution education Poor balance - to improve, our physical therapists will perform initial evaluation of pt's status upo n admission and devise an individualized program for Balance Training Achieving independence - to improve, our physical therapists will perform initial evaluation of pt's status upon admission and devise an individualized program for Community Reintegration Activities - Occupational Therapy ADL deficits - to improve, our occupation therapists will perform initial evaluation of pt's status u adam admission and devise an individualized program for Bathing, Bed mobility, Community Reintegration , Cooking, Dressing, Eating, Fine Motor Skills, Grooming, Homemaking, Kitchen Mobility, Laundry, Kika ent Education, Safety Awareness, Splinting - Positioning, Transfers(Toilet, Tub, Shower), and Wheel C hair Management Cognitive deficits - to improve, our occupation therapists will perform initial evaluation of pt's st atus upon admission and devise an individualized program for Cognition - orientation Need for specialist wound care - to improve, our occupation therapists will perform initial evaluation of pt's s tatus upon admission and devise an individualized program for Caregiver Training MEDICAL PLAN: - Diet Type Start Regular - Diet - Liquid Texture Start Regular - Tube Feed Start N/A - Bladder care per protocol - Weight Bearing Precaution WBAT right LE - Skin care per protocol - Other See attached MAR (Medication Administration Record) - Diet - Solid Texture Regular - Shower shower - Swallowing pt requires supervision and is on a modified diet of pureed during meal time for safe swallowing DISCHARGE PLAN: - Estimated Length of Stay (days) 17. - Consensus on plan Discharge plan has been discussed with primary caregiver. Patient/Family is in agreement with the krystian n. Primary caregiver is in agreement with the plan. - Patient/Family Goals Return home independently. - Planned Living Setting Upon Discharge Home, to live alone. Primary caregiver: Pt self. SIGNATURE PANEL: (CDT)
--- NOTE | 2021-06-29 21:54 | PAPE ---
POST ADMISSION PHYSICIAN EVALUATION PATIENT: [facility] MR# [id number] REFERRING DOCTOR Dr. Charlie Monge EVALUATION DATE AND TIME 06/28/2021 21:52 (CDT) NAME CESAR RAO DATE OF 1950 AGE 70 PHONE SSN# [id number] GENDER female EVALUATING PHYSICIAN Dr. Mike Lazaro M.D. ADMISSION DIAGNOSIS: Acute left frontal lobe cortical infarcts ONSET DATE 06/25/2021 POST-ADMISSION FUNCTIONAL/MEDICAL STATUS: - Bladder Same accident frequency: 7-Ind - No accidents in the past 7 days - Bowel Same accident frequency: 7-Ind - No accidents in the past 7 days - Walking Same score based on distance walked: 0(N/A) Same score based on distance walked: 3(>=150ft) - Wheelchair Same score based on distance traveled: 0(N/A) STATUS CHANGE EVALUATION: No change in Functional or Medical Status is identified compared with Pre-Admission screening. PATIENT NEEDS CLOSE MEDICAL SUPERVISION BY A REHABILITATION PHYSICIAN FOR: Coordination of Treatment Team Medical and Co-Morbidity Management Respiratory/Airway Management Pain Management PATIENT REQUIRES 24X7 REHAB NURSING FOR MEDICAL AND FUNCTIONAL MGT. OF THE FOLLOWING DEFICITS: Disease Management Medication Management Patient requires 24x7 Rehabilitation Nursing for: Pain Issues, Identifying and preventing risk factor s, Monitoring and reporting current medical conditions, Assisting with ambulation and transfer, Ryann ting with all ADL-s, Teaching patients about disease process and medications, Family teaching, Provid ing safe environment, Bowel and Bladder Issues, Skin Integrity, and Medication Management Patient/Family Education Providing Safe Environment Skin Integrity Pain Management Bowel and Bladder Management PATIENT REQUIRES INTENSIVE, COORDINATED INTERDISCIPLINARY APPROACH TO REHAB: Arranging Home Equipment/Services Discharge Planning Family Intervention/Training Patient needs Dietary and Nutrition Services for: Adequate Nutrition, Nutritional Supplements, and Nu tritional Education Patient needs Chicken Cleaner and/or Case Management for: Discharge Planning, Arranging Home Equipmen t or Services, and Family Interventions Chicken Cleaner/Case Management LIST OF IDENTIFIED AND POTENTIAL PROBLEMS: Alteration in leisure activities Bladder, Incontinence Bowel, Incontinence Infection, Actual or Potential Mobility Impaired Pain, Alteration in Comfort Self Care Deficit Skin Integrity, Actual or Potential Urinary Tract Infection (UTI), Actual or Potential RISK FOR COMPLICATIONS - CVA pt has history of CVA and 2 present cerebral aneurysms. Will monitor blood pressure and manage with medication. - Falls Educated pt on fall prevention strategies to reduce/eliminate fall risk. Patient will be evaluated fo r Fall Precautions and will be placed on Fall Precautions as indicated per protocol. pt is high risk for falls due to impulsivity and reduced safety awareness. - Aspiration Aggressive Speech therapy will be provided due to severe oral dysphagia and mild pharyngeal dysphagia . - Pneumonia IMMIGRATION INSPECTOR will provide aggressive therapeutic services to improve pt's ability to safely swallow due to pat ient's severe oral dysphagia and mild pharyngeal dysphagia. - Skin Breakdown Nursing will assess skin daily using assessment tool and will place on Skin Breakdown Precautions as Indicated per protocol. - Pain Clinical staff will assess patient's pain level every shift per protocol to monitor for pain manageme nt effectiveness. Educate patient on pain management strategies. INTERVENTIONS - HTN Blood pressure will be regularly assessed and medications administered as per physician recommendatio ns. Appropriate BP range needs to be maintained to ensure optimal brain healing. - Hyperlipidemia Administer medications as per MD. - COPD Educate pt on use of incentive spirometer and deep breathing exercises. Protection of Airway due to s evere dysarthria and issues with swallowing. - Severe Oral Dysphagia Aggressive Speech Therapy to enhance to performance and prevent aspiration and reduce risk for pneumo jose martin. - Severe Dysarthria Aggressive Speech Therapy to provide patient the ability to communicate. - Mild Aphasia Aggressive Speech Therapy to provide patient the ability to communicate. - Impulsivity Aggressive PT, OT, and Speech services to improve patient safety and reduce impulsivity. - Chronic Back Pain Monitor symptoms and manage with medication as per physician guidance. Therapeutic activities and exe rcise to improve function and reduce pain. - Mild Pharyngeal Dysphagia Aggressive Speech Therapy to enhance to performance and prevent aspiration and reduce risk for pneumo jose martin. PATIENT COULD BE AT RISK FOR COMPLICATIONS FROM ADVERSE MEDICAL CONDITIONS DUE TO HIS/HER COMORBIDITI ES AND THE RIGORS OF THE INTENSIVE REHABILLITATION PROGRAM. METHODS OR INTERVENTIONS TO AVOID COMPLIC ATIONS INCLUDE: - Bleeding Stroke patients assessed for lethargy or change in status. - Infection Clinical staff to assess and manage the signs and symptoms of infection including fever, redness, war mth, etc. - Urinary Tract Infection - Aspiration Clinical staff will assess and manage coughing, drooling, congestion. - Falls Patient will be evaluated for Fall Precautions and will be placed on Fall Precautions as indicated pe r protocol. - Skin Breakdown Nursing will assess skin daily using assessment tool and will place on Skin Breakdown Precautions as indicated per protocol. - Pain Clinical staff may employ non-medication methods such as massage, distraction, decrease stimulus, etc . as needed. Clinical staff will assess patient's pain level every shift per protocol to assess and e nsure pain management effectiveness. Medications will be given and the pain level re-assessed. PRELIMINARY PLAN OF CARE: - Physical Therapy Patient needs Physical Therapy for a daily minimum of 1.5 hours at least 5 out of 7 days, to improve: Mobility, Strengthening, Transfers, Stretching, ROM, Endurance, Ability to manage stairs, Gait, and Balance. - Speech Therapy Patient needs Speech Therapy for a daily minimum of 0.5 hours at least 5 out of 7 days, to improve: S wallowing, Cognition, Language Skills, and Compensatory Strategies. - Rehabilitation Nursing Patient requires 24x7 Rehabilitation Nursing for: Pain Issues, Identifying and preventing risk factor s, Monitoring and reporting current medical conditions, Assisting with ambulation and transfer, Ryann ting with all ADL-s, Teaching patients about disease process and medications, Family teaching, Provid ing safe environment, Bowel and Bladder Issues, Skin Integrity, and Medication Management. Patient needs Chicken Cleaner and/or Case Management for: Discharge Planning, Arranging Home Equipmen t or Services, and Family Interventions. - Dietary and Nutrition Services Patient needs Dietary and Nutrition Services for: Adequate Nutrition, Nutritional Supplements, and Nu tritional Education. - Occupational Therapy Patient needs Occupational Therapy for a daily minimum of 1.5 hours at least 5 out of 7 days, to impr ove Activities of Daily Living, including: Eating, Grooming, Bathing, Dressing, Toileting, Toilet Tra nsfers, Community Reintegration, Higher functional activities, Adaptive Equipment, Splinting, Househo ld Tasks, and Other activities as determined. QI SCORES: - Self-Care A. Eating 04-Supervision or touching assistance B. Oral hygiene 03-Partial/moderate assistance C. Toileting hygiene 03-Partial/moderate assistance E. Shower/bathe self 04-Supervision or touching assistance F. Upper body dressing 04-Supervision or touching assistance G. Lower body dressing 03-Partial/moderate assistance H. Putting on/taking off footwear 03-Partial/moderate assistance - Mobility A. Roll left and right 06-Independent B. Sit to lying 06-Independent C. Lying to sitting on side of bed 06-Independent D. Sit to stand 04-Supervision or touching assistance E. Chair/jab-xw-vegan transfer 04-Supervision or touching assistance F. Toilet transfer 04-Supervision or touching assistance G. Car transfer 10-Not attempted due to environmental limitations I. Walk 10 feet 04-Supervision or touching assistance J. Walk 50 feet with two turns 04-Supervision or touching assistance K. Walk 150 feet 04-Supervision or touching assistance L. Walking 10 feet on uneven surfaces 10-Not attempted due to environmental limitations M. 1 step (curb) 10-Not attempted due to environmental limitations N. 4 steps 10-Not attempted due to environmental limitations O. 12 steps 10-Not attempted due to environmental limitations P. Picking up object 03-Partial/moderate assistance R. Wheel 50 feet with two turns 09-Not applicable S. Wheel 150 feet 09-Not applicable - Bladder and Bowel Bladder continence 0-Always continent Bowel continence 0-Always continent - Endurance Good - Balance Fair - Safety Awareness Poor POTENTIAL FUNCTIONAL GOALS FOR PATIENT TO ACHIEVE BY DISCHARGE: - Safety Precaution Patient will remain free from falls or injury at time of discharge. - Bed Mobility Patient will perform bed mobility at 4-Eneida level of assistance. - Transfers Patient will complete transfers from bed to chair at 4-Eneida level of assistance. - Mobility Patient will ambulate 150 ft with 4-Eneida level of assistance with RW. PATIENT REHAB POTENTIAL Dinesh RAO is able and expected to receive 3 hours of individualized therapy daily on at least 5 of jorge ry 7 days Dinesh RAO's prognosis for significant practical improvement within a reasonable period of time appears Good Expected level of measurable improvement will be of a practical value to Dinesh RAO's functional capaci ty or adaptations to impairments Has a viable Discharge Plan Medically appropriate; condition is sufficiently stable to participate in intensive rehab program DISCHARGE PLAN: - Estimated Length of Stay (days) 17. - Consensus on plan Discharge plan has been discussed with primary caregiver. Patient/Family is in agreement with the krystian n. Primary caregiver is in agreement with the plan. - Patient/Family Goals Return home independently. - Planned Living Setting Upon Discharge Home, to live alone. Primary caregiver: Pt self. CONCLUSION ON REHABILITATION NECESSITY: I have evaluated patient's pre-admission functional status and, comparing it to the patient's post-ad mission functional status now, I conclude that the pre-admission assessment was accurate. Patient's c ondition on admission supports the medical necessity of admission to IRF. It is safe to proceed with patient's therapy program. SIGNATURE PANEL: (CDT)
[2021-06-30] MEDS ORDERED: PANTOPRAZOLE 40MG TABLET PO SCH (06:30)
[2021-06-30] MEDS: NICOTINE 14 MG/PAT TD SCH (06:33)
[2021-06-30] MEDS: PANTOPRAZOLE 40MG TABLET PO SCH (06:33)
[2021-06-30] MEDS: ASPIRIN EC 81 MG TAB PO SCH (07:41)
[2021-06-30] MEDS: DOCUSATE NA 100 MG CAP PO SCH (07:41)
[2021-06-30] MEDS: CLOPIDOGREL 75 MG TABLET PO SCH (07:41)
[2021-06-30] MEDS: FOLIC ACID 1 MG TABLET PO SCH (07:41)
[2021-06-30] MEDS: TRELEGY ELLIPTA IH SCH (07:42)
[2021-06-30] MEDS: lisinopriL 5 MG TAB PO SCH (07:42)
[2021-06-30] MEDS ORDERED: DOCUSATE NA 100 MG CAP PO SCH (08:00)
[2021-06-30] MEDS: CETIRIZINE HCL 5 MG TABLET PO SCH (10:20)
[2021-06-30] MEDS ORDERED: DOCUSATE NA/SENNA CONC 1 TAB PO PRN (12:30)
[2021-06-30] MEDS: ENOXAPARIN 30 MG/0.3 ML SQ SCH (16:24)
[2021-06-30] MEDS: HYDROCODONE/APAP 5/325 MG TAB PO PRN (18:37)
[2021-06-30] MEDS: ATORVASTATIN 80 MG TAB PO SCH (19:56)
[2021-07-01] MEDS: LEVOTHYROXINE SOD 0.1 MG TAB PO SCH (05:22)
[2021-07-01] MEDS: lisinopriL 5 MG TAB PO SCH (07:28)
[2021-07-01] MEDS: PANTOPRAZOLE 40MG TABLET PO SCH (07:36)
[2021-07-01] MEDS: NICOTINE 14 MG/PAT TD SCH (07:50)
[2021-07-01] MEDS: DOCUSATE NA 100 MG CAP PO SCH (07:51)
[2021-07-01] MEDS: FOLIC ACID 1 MG TABLET PO SCH (07:51)
[2021-07-01] MEDS: ASPIRIN EC 81 MG TAB PO SCH (07:51)
[2021-07-01] MEDS: CLOPIDOGREL 75 MG TABLET PO SCH (07:51)
[2021-07-01] MEDS: CETIRIZINE HCL 5 MG TABLET PO SCH (07:51)
[2021-07-01] MEDS: TRELEGY ELLIPTA IH SCH (08:01)
[2021-07-01] MEDS: ENOXAPARIN 30 MG/0.3 ML SQ SCH (16:14)
[2021-07-01] MEDS: ENSURE ENLIVE 237 ML CAN PO SCH (19:25)
[2021-07-01] MEDS: HYDROCODONE/APAP 5/325 MG TAB PO PRN (19:25)
[2021-07-01] MEDS: ATORVASTATIN 80 MG TAB PO SCH (19:25)
--- NOTE | 2021-07-01 19:54 | R.PN ---
PROGRESS NOTES ENCOUNTER DATE AND TIME: 07/01/2021 19:49 (CDT) NAME CESAR RAO DATE OF : 1950 DATE OF ADMISSION: 06/28/2021 16:35 (CDT) Acute left frontal lobe cortical infarctsCHIEF COMPLAINT: Left sided stroke and right sided weakness SUBJECTIVE: Pt denied any depression. Pt denied any Shortness of Breath. Labs reviewed and are stable. Up and down 45 steps with CGA, Ambulated 2500' without and assistive de vice and SBA. Min assistance with speech therapy. MBSS to be done this week. VITAL SIGNS Temperature: 97.6 F SBP/DBP: 124/127/92 Pulse: 74 Resp: 16 MEDICATION ALLERGIES: No Known Drug Allergies (NKDA) ENVIRONMENTAL ALLERGIES: - Substance Allergies None Known - Other Allergies None Known NURSING: - Shower allowing shower - Bladder care per protocol - Skin care per protocol PRECAUTIONS: - Swallowing pt requires supervision and is on a modified diet of pureed during meal time for safe swallowing ACTIVITIES OOB only with supervision THERAPIES: - Dietary and Nutrition Adequate Nutrition. Nutritional Education. Nutritional Supplements. - Occupational Therapy Cognitive Retraining. Patient needs Occupational Therapy for a daily minimum of 1.5 hours at least 5 out of 7 days, to improve Activities of Daily Living, including: Eating, Grooming, Bathing, Dressing, Toileting, Toilet Transfers, Community Reintegration, Higher functional activities, Adaptive Equipme nt, Splinting, Household Tasks, and Other activities as determined. Visual Perceptual Training. - Speech Therapy Cognitive Training. Expressive Language Skills. Memory Strategies. Patient needs Speech Therapy for a daily minimum of 1 hours at least 5 out of 7 days, to improve: Swallowing, Cognition, Language Skill s, and Compensatory Strategies. Receptive Language Skills. Speech Intelligibility Training. - Physical Therapy Patient needs Physical Therapy for a daily minimum of 1 hours at least 5 out of 7 days, to improve: M obility, Strengthening, Transfers, Stretching, ROM, Endurance, Ability to manage stairs, Gait, and Ba dalila. PHYSICAL EXAM - Gen Alert and awake Lying in bed No apparent distress Oriented to: person, time, and place - Skin No breakdown Normacephalic - Eyes No abnormalities - ENMT No abnormalities - Neck No abnormalities - CVS RRR - Chest mild decrease in breath sounds - Resp No wheezing - Abd Soft - GI Non distended Deferred - No abnormalities - Ext Mild bilateral lower extremity edema. - MSK 3/5 right facial weakness 4+/5 weakness in right upper and lower extremities. - Neuro 3/5 right facial weakness 4+/5 weakness in right upper and lower extremities, dysarthria, dysphagia - Psych Mild depression. ASSESSMENT: Pt. is a 70 yo Left-handed white female.On 06/25/2021 Pt. presented to [facility] ith sudden onset of right-side weakness.On 06/25/2021 she was admitted to [facility] with diagnosis Acute left frontal lobe cortical infarcts.Her impairment category is Stroke 01 - Ri ght Body (Left Brain) (01.2).Pre-morbidly, Pt. was independent/mod-I in Locomotion, Safety Awareness, Social Cognition, Balance, Transfers Control, Sphincter Control, Self-Care, and Communication; and s he had good Endurance.Currently, she has deficits of Safety Awareness, Social Cognition, Balance, Erlinda f-Care, Communication, and Transfers Control.Pt. is now referred to [facility] for acute in-patient rehabilitation in order to maximize patient's functional independence in activi ties of daily living, strength, ROM, and mobility.- Rehab Goal Patient has realistic goal of being discharged at assistance level 7-Ind to reside at Home with Pt s elf. MDM/PLAN: - Physical Therapy Gait dysfunction - to improve, our physical therapists will perform initial evaluation of pt's statu s upon admission and devise an individualized program for Gait Training, and Wheel Chair mobility Inability to transfer - to improve, our physical therapists will perform initial evaluation of pt's status upon admission and devise an individualized program for Bed mobility Need for home safety evaluation - to improve, our physical therapists will perform initial evaluatio n of pt's status upon admission and devise an individualized program for Home Evaluation Need in caregiver upon discharge - to improve, our physical therapists will perform initial evaluati on of pt's status upon admission and devise an individualized program for Caregiver Training Edema - to improve, our physical therapists will perform initial evaluation of pt's status upon admis joshua and devise an individualized program for Elevation Training, and Lymphedema Therapy New precaution - to improve, our physical therapists will perform initial evaluation of pt's status upon admission and devise an individualized program for Patient precaution education Poor balance - to improve, our physical therapists will perform initial evaluation of pt's status up on admission and devise an individualized program for Balance Training Achieving independence - to improve, our physical therapists will perform initial evaluation of pt's status upon admission and devise an individualized program for Community Reintegration Activities - Occupational Therapy ADL deficits - to improve, our occupation therapists will perform initial evaluation of pt's status upon admission and devise an individualized program for Bathing, Bed mobility, Community Reintegratio n, Cooking, Dressing, Eating, Fine Motor Skills, Grooming, Homemaking, Kitchen Mobility, Laundry, Pat ient Education, Safety Awareness, Splinting - Positioning, Transfers(Toilet, Tub, Shower), and Wheel Chair Management Cognitive deficits - to improve, our occupation therapists will perform initial evaluation of pt's s tatus upon admission and devise an individualized program for Cognition - orientation Need for respiratory care technician - to improve, our occupation therapists will perform initial evaluation of pt's status upon admission and devise an individualized program for Caregiver Training - Other See attached MAR (Medication Administration Record) - Diet Type Continue Regular - Diet - Liquid Texture Continue Regular - Tube Feed Continue N/A - Bladder care per protocol - Weight Bearing Precaution WBAT right LE - Skin care per protocol - Diet - Solid Texture Continue Regular - Shower allowing shower - Swallowing pt requires supervision and is on a modified diet of pureed during meal time for safe swallowing for Dementia, TBI, Stroke, or others FUNCTIONAL STATUS: UPDATED AT WEEKLY TEAM CONFERENCE - Bladder Same accident frequency: 7-Ind - No accidents in the past 7 days - Bowel Same accident frequency: 7-Ind - No accidents in the past 7 days - Walking Same score based on distance walked: 0(N/A) Same score based on distance walked: 3(>=150ft) - Wheelchair Same score based on distance traveled: 0(N/A) FUNCTIONAL STATUS: - Self-Care A. Eating Ind B. Grooming Ind C. Bathing Eneida D. Dressing - Upper Ind E. Dressing - Lower Eneida F. Toileting Ind - Sphincter Control G. Bladder control Ind H. Bowel control Ind - Transfers Control I. Bed/Chair/Wheelchair sup J. Toilet sup K. Tub/Shower sup - Locomotion L. Walk/Wheelchair (B) Jarrett M. Stairs sup - Communication N. Comprehension (B) Jarrett O. Expression (B) Eneida - Social Cognition P. Social Interaction Ind Q. Problem Solving Ind R. Memory Ind - Endurance Good - Balance Good - Safety Awareness Good QI SCORES: - Self-Care A. Eating 04-Supervision or touching assistance B. Oral hygiene 03-Partial/moderate assistance C. Toileting hygiene 03-Partial/moderate assistance E. Shower/bathe self 04-Supervision or touching assistance F. Upper body dressing 04-Supervision or touching assistance G. Lower body dressing 03-Partial/moderate assistance H. Putting on/taking off footwear 03-Partial/moderate assistance - Mobility A. Roll left and right 06-Independent B. Sit to lying 06-Independent C. Lying to sitting on side of bed 06-Independent D. Sit to stand 04-Supervision or touching assistance E. Chair/fhc-pw-digie transfer 04-Supervision or touching assistance F. Toilet transfer 04-Supervision or touching assistance G. Car transfer 10-Not attempted due to environmental limitations I. Walk 10 feet 04-Supervision or touching assistance J. Walk 50 feet with two turns 04-Supervision or touching assistance K. Walk 150 feet 04-Supervision or touching assistance L. Walking 10 feet on uneven surfaces 10-Not attempted due to environmental limitations M. 1 step (curb) 10-Not attempted due to environmental limitations N. 4 steps 10-Not attempted due to environmental limitations O. 12 steps 10-Not attempted due to environmental limitations P. Picking up object 03-Partial/moderate assistance R. Wheel 50 feet with two turns 09-Not applicable S. Wheel 150 feet 09-Not applicable - Bladder and Bowel Bladder continence 0-Always continent Bowel continence 0-Always continent - Endurance Good - Balance Fair - Safety Awareness Poor CURRENT FUNC. DEFICITS: Self-Care, Balance, Safety Awareness, and Mobility SIGNATURE PANEL: (CDT)
[2021-07-02] MEDS: LEVOTHYROXINE SOD 0.1 MG TAB PO SCH (05:15)
[2021-07-02] MEDS: PANTOPRAZOLE 40MG TABLET PO SCH (07:25)
[2021-07-02] MEDS: CETIRIZINE HCL 5 MG TABLET PO SCH (07:46)
[2021-07-02] MEDS: ASPIRIN EC 81 MG TAB PO SCH (07:46)
[2021-07-02] MEDS: DOCUSATE NA 100 MG CAP PO SCH (07:46)
[2021-07-02] MEDS: FOLIC ACID 1 MG TABLET PO SCH (07:47)
[2021-07-02] MEDS: NICOTINE 14 MG/PAT TD SCH (07:47)
[2021-07-02] MEDS: CLOPIDOGREL 75 MG TABLET PO SCH (07:47)
[2021-07-02] MEDS: ENSURE ENLIVE 237 ML CAN PO SCH ×2 (07:51→19:12)
[2021-07-02] MEDS: TRELEGY ELLIPTA IH SCH (07:53)
[2021-07-02] MEDS: lisinopriL 5 MG TAB PO SCH (07:58)
--- NOTE | 2021-07-02 08:52 | PN ---
Date of Progress Note: 07/01/2021 Subjective: The patient was seen this morning for followup. She was on the rehab floor. Denies any specific complaints. Objective: Vital Signs: Reviewed. HEENT: Examination unremarkable. Lungs: Clear to auscultation. Heart: Sounds normal. Abdomen: Soft. Bowel sounds normal. No guarding, rigidity, tenderness, or distention. Extremities: No leg edema. Neuro Exam: The patient does not have any weakness of her upper or lower extremities. She has expre ssive aphasia, but today I have seen some improvement, as she was able to speak some words even thoug h there was some difficulty, but at least she was able to speak some words. Impression: 1.Stroke. 2.Hypertension. 3.Chronic obstructive pulmonary disease. 4.Hyperlipidemia. Plan: We will go ahead and continue to provide physical therapy, occupational therapy, and speech th [facility] under guidance of Dr. Lazaro. Continue lisinopril, hold if systolic blood pressure less than 140. Continue current high-dose statin therapy, aspirin. Continue DVT prophylaxis and I will go ah ead and try saying a couple of words on a repeated basis and after a few hours pick 2 to 3 different words and go through repetition of those to try to help improve her speech also. I will se e her tomorrow for followup. DOLORES/MODL Voice ID: [id number] Report ID: [id number]
[2021-07-02] MEDS: ENOXAPARIN 30 MG/0.3 ML SQ SCH (16:05)
--- NOTE | 2021-07-02 18:18 | R.PN ---
PROGRESS NOTES ENCOUNTER DATE AND TIME: 07/02/2021 18:14 (CDT) NAME CESAR RAO DATE OF : 1950 DATE OF ADMISSION: 06/28/2021 16:35 (CDT) Acute left frontal lobe cortical infarctsCHIEF COMPLAINT: Left sided stroke and right sided weakness SUBJECTIVE: Pt denied any depression. Pt denied any Shortness of Breath. Up and down 50 steps with CGA, Ambulated 2500' without and assistive device and SBA. Ambulated 1000' out doors with SBA. Min assistance with speech therapy. MBSS to be done this week. WBC 6.6, Hgb 12.3, prealbumin 16.4, bacteria 20 to 50, esterase 1+, WBC 5-10. VITAL SIGNS Temperature: 97.8 F SBP/DBP: 139/77 Pulse: 65 Resp: 16 MEDICATION ALLERGIES: No Known Drug Allergies (NKDA) ENVIRONMENTAL ALLERGIES: - Substance Allergies None Known - Other Allergies None Known NURSING: - Shower allowing shower - Bladder care per protocol - Skin care per protocol PRECAUTIONS: - Swallowing pt requires supervision and is on a modified diet of pureed during meal time for safe swallowing ACTIVITIES OOB only with supervision THERAPIES: - Dietary and Nutrition Adequate Nutrition. Nutritional Education. Nutritional Supplements. - Occupational Therapy Cognitive Retraining. Patient needs Occupational Therapy for a daily minimum of 1.5 hours at least 5 out of 7 days, to improve Activities of Daily Living, including: Eating, Grooming, Bathing, Dressing, Toileting, Toilet Transfers, Community Reintegration, Higher functional activities, Adaptive Equipme nt, Splinting, Household Tasks, and Other activities as determined. Visual Perceptual Training. - Speech Therapy Cognitive Training. Expressive Language Skills. Memory Strategies. Patient needs Speech Therapy for a daily minimum of 1 hours at least 5 out of 7 days, to improve: Swallowing, Cognition, Language Skill s, and Compensatory Strategies. Receptive Language Skills. Speech Intelligibility Training. - Physical Therapy Patient needs Physical Therapy for a daily minimum of 1 hours at least 5 out of 7 days, to improve: M obility, Strengthening, Transfers, Stretching, ROM, Endurance, Ability to manage stairs, Gait, and Ba dalila. PHYSICAL EXAM - Gen Alert and awake Lying in bed No apparent distress Oriented to: person, time, and place - Skin No breakdown Normacephalic - Eyes No abnormalities - ENMT No abnormalities - Neck No abnormalities - CVS RRR - Chest mild decrease in breath sounds - Resp No wheezing - Abd Soft - GI Non distended Deferred - No abnormalities - Ext Mild bilateral lower extremity edema. - MSK 3/5 right facial weakness 4+/5 weakness in right upper and lower extremities. - Neuro 3/5 right facial weakness 4+/5 weakness in right upper and lower extremities, dysarthria, dysphagia - Psych Mild depression. ASSESSMENT: Pt. is a 70 yo Left-handed white female.On 06/25/2021 Pt. presented to [facility] ith sudden onset of right-side weakness.On 06/25/2021 she was admitted to [facility] with diagnosis Acute left frontal lobe cortical infarcts.Her impairment category is Stroke 01 - Ri ght Body (Left Brain) (01.2).Pre-morbidly, Pt. was independent/mod-I in Locomotion, Safety Awareness, Social Cognition, Balance, Transfers Control, Sphincter Control, Self-Care, and Communication; and s he had good Endurance.Currently, she has deficits of Safety Awareness, Social Cognition, Balance, Erlinda f-Care, Communication, and Transfers Control.Pt. is now referred to [facility] for acute in-patient rehabilitation in order to maximize patient's functional independence in activi ties of daily living, strength, ROM, and mobility.- Rehab Goal Patient has realistic goal of being discharged at assistance level 7-Ind to reside at Home with Pt s elf. MDM/PLAN: - Physical Therapy Gait dysfunction - to improve, our physical therapists will perform initial evaluation of pt's statu s upon admission and devise an individualized program for Gait Training, and Wheel Chair mobility Inability to transfer - to improve, our physical therapists will perform initial evaluation of pt's status upon admission and devise an individualized program for Bed mobility Need for home safety evaluation - to improve, our physical therapists will perform initial evaluatio n of pt's status upon admission and devise an individualized program for Home Evaluation Need in caregiver upon discharge - to improve, our physical therapists will perform initial evaluati on of pt's status upon admission and devise an individualized program for Caregiver Training Edema - to improve, our physical therapists will perform initial evaluation of pt's status upon admi ssion and devise an individualized program for Elevation Training, and Lymphedema Therapy New precaution - to improve, our physical therapists will perform initial evaluation of pt's status upon admission and devise an individualized program for Patient precaution education Poor balance - to improve, our physical therapists will perform initial evaluation of pt's status up on admission and devise an individualized program for Balance Training Achieving independence - to improve, our physical therapists will perform initial evaluation of pt's status upon admission and devise an individualized program for Community Reintegration Activities - Occupational Therapy ADL deficits - to improve, our occupation therapists will perform initial evaluation of pt's status upon admission and devise an individualized program for Bathing, Bed mobility, Community Reintegratio n, Cooking, Dressing, Eating, Fine Motor Skills, Grooming, Homemaking, Kitchen Mobility, Laundry, Pat ient Education, Safety Awareness, Splinting - Positioning, Transfers(Toilet, Tub, Shower), and Wheel Chair Management Cognitive deficits - to improve, our occupation therapists will perform initial evaluation of pt's s tatus upon admission and devise an individualized program for Cognition - orientation Need for healthcare specialist - to improve, our occupation therapists will perform initial evaluation of pt's status upon admission and devise an individualized program for Caregiver Training - Other See attached MAR (Medication Administration Record) - Diet Type Continue Regular - Diet - Liquid Texture Continue Regular - Tube Feed Continue N/A - Bladder care per protocol - Weight Bearing Precaution WBAT right LE - Skin care per protocol - Diet - Solid Texture Continue Regular - Shower allowing shower - Swallowing pt requires supervision and is on a modified diet of pureed during meal time for safe swallowing for Dementia, TBI, Stroke, or others FUNCTIONAL STATUS: UPDATED AT WEEKLY TEAM CONFERENCE - Bladder Same accident frequency: 7-Ind - No accidents in the past 7 days - Bowel Same accident frequency: 7-Ind - No accidents in the past 7 days - Walking Same score based on distance walked: 0(N/A) Same score based on distance walked: 3(>=150ft) - Wheelchair Same score based on distance traveled: 0(N/A) FUNCTIONAL STATUS: - Self-Care A. Eating Ind B. Grooming Ind C. Bathing Eneida D. Dressing - Upper Ind E. Dressing - Lower Eneida F. Toileting Ind - Sphincter Control G. Bladder control Ind H. Bowel control Ind - Transfers Control I. Bed/Chair/Wheelchair sup J. Toilet sup K. Tub/Shower sup - Locomotion L. Walk/Wheelchair (B) Jarrett M. Stairs sup - Communication N. Comprehension (B) Jarrett O. Expression (B) Eneida - Social Cognition P. Social Interaction Ind Q. Problem Solving Ind R. Memory Ind - Endurance Good - Balance Good - Safety Awareness Good QI SCORES: - Self-Care A. Eating 04-Supervision or touching assistance B. Oral hygiene 03-Partial/moderate assistance C. Toileting hygiene 03-Partial/moderate assistance E. Shower/bathe self 04-Supervision or touching assistance F. Upper body dressing 04-Supervision or touching assistance G. Lower body dressing 03-Partial/moderate assistance H. Putting on/taking off footwear 03-Partial/moderate assistance - Mobility A. Roll left and right 06-Independent B. Sit to lying 06-Independent C. Lying to sitting on side of bed 06-Independent D. Sit to stand 04-Supervision or touching assistance E. Chair/[id number] transfer 04-Supervision or touching assistance F. Toilet transfer 04-Supervision or touching assistance G. Car transfer 10-Not attempted due to environmental limitations I. Walk 10 feet 04-Supervision or touching assistance J. Walk 50 feet with two turns 04-Supervision or touching assistance K. Walk 150 feet 04-Supervision or touching assistance L. Walking 10 feet on uneven surfaces 10-Not attempted due to environmental limitations M. 1 step (curb) 10-Not attempted due to environmental limitations N. 4 steps 10-Not attempted due to environmental limitations O. 12 steps 10-Not attempted due to environmental limitations P. Picking up object 03-Partial/moderate assistance R. Wheel 50 feet with two turns 09-Not applicable S. Wheel 150 feet 09-Not applicable - Bladder and Bowel Bladder continence 0-Always continent Bowel continence 0-Always continent - Endurance Good - Balance Fair - Safety Awareness Poor CURRENT FUNC. DEFICITS: Self-Care, Balance, Safety Awareness, and Mobility SIGNATURE PANEL: (CDT)
[2021-07-02] MEDS: HYDROCODONE/APAP 5/325 MG TAB PO PRN (19:12)
[2021-07-02] MEDS: ATORVASTATIN 80 MG TAB PO SCH (19:12)
--- NOTE | 2021-07-03 00:13 | PN ---
Date of Progress Note: 07/02/2021 Subjective: The patient was seen this morning for followup. No new complaints or problems reported by her. She was lying in bed. Denies any complaints. Her speech seems to be slowly improving. Yes terday, I gave her some word exercise to do and was more clear compared to yesterday. Objective: Vital Signs: Reviewed. HEENT: Unremarkable. Lungs: Clear to auscultation. Heart: Sounds normal. Abdomen: Soft. Bowel sounds normal. No guarding, rigidity, tenderness, or distention. Extremities: No leg edema. Impression: 1.Stroke. 2.Hypertension. 3.Chronic obstructive pulmonary disease. 4.Hyperlipidemia. Plan: We will go ahead and continue current statin therapy. Continue current DVT prophylaxis and an tiplatelet therapy per order. Physical Therapy and Speech Therapy to continue to work with the patie nt and I will see her tomorrow. DOLORES/MODL Voice ID: [id number] Report ID: [id number]
[2021-07-03] MEDS: LEVOTHYROXINE SOD 0.1 MG TAB PO SCH (05:23)
[2021-07-03] MEDS: PANTOPRAZOLE 40MG TABLET PO SCH (07:28)
[2021-07-03] MEDS: TRELEGY ELLIPTA IH SCH (07:28)
[2021-07-03] MEDS: ENSURE ENLIVE 237 ML CAN PO SCH ×2 (07:47→19:28)
[2021-07-03] MEDS: DOCUSATE NA 100 MG CAP PO SCH (07:47)
[2021-07-03] MEDS: CETIRIZINE HCL 5 MG TABLET PO SCH (07:48)
[2021-07-03] MEDS: lisinopriL 5 MG TAB PO SCH (07:48)
[2021-07-03] MEDS: ASPIRIN EC 81 MG TAB PO SCH (07:48)
[2021-07-03] MEDS: FOLIC ACID 1 MG TABLET PO SCH (07:48)
[2021-07-03] MEDS: CLOPIDOGREL 75 MG TABLET PO SCH (07:49)
[2021-07-03] MEDS: NICOTINE 14 MG/PAT TD SCH (09:10)
[2021-07-03] MEDS: ENOXAPARIN 30 MG/0.3 ML SQ SCH (16:24)
--- NOTE | 2021-07-03 17:37 | R.PN ---
PROGRESS NOTES ENCOUNTER DATE AND TIME: 07/03/2021 17:33 (CDT) NAME CESAR RAO DATE OF : 1950 DATE OF ADMISSION: 06/28/2021 16:35 (CDT) Acute left frontal lobe cortical infarctsCHIEF COMPLAINT: Left sided stroke and right sided weakness SUBJECTIVE: Pt denied any depression. Pt denied any Shortness of Breath. Up and down 50 steps with CGA, Ambulated 2000' without and assistive device and SB. indoors and outdo ors with SBA. Min assistance with expression and speech therapy. WBC 6.6, Hgb 12.3, prealbumin 16.4, bacteria 20 to 50, esterase 1+, WBC 5-10. VITAL SIGNS Temperature: 97.0 F SBP/DBP: 144/84 Pulse: 65 Resp: 16 MEDICATION ALLERGIES: No Known Drug Allergies (NKDA) ENVIRONMENTAL ALLERGIES: - Substance Allergies None Known - Other Allergies None Known NURSING: - Shower allowing shower - Bladder care per protocol - Skin care per protocol PRECAUTIONS: - Swallowing pt requires supervision and is on a modified diet of pureed during meal time for safe swallowing ACTIVITIES OOB only with supervision THERAPIES: - Dietary and Nutrition Adequate Nutrition. Nutritional Education. Nutritional Supplements. - Occupational Therapy Cognitive Retraining. Patient needs Occupational Therapy for a daily minimum of 1.5 hours at least 5 out of 7 days, to improve Activities of Daily Living, including: Eating, Grooming, Bathing, Dressing, Toileting, Toilet Transfers, Community Reintegration, Higher functional activities, Adaptive Equipme nt, Splinting, Household Tasks, and Other activities as determined. Visual Perceptual Training. - Speech Therapy Cognitive Training. Expressive Language Skills. Memory Strategies. Patient needs Speech Therapy for a daily minimum of 1 hours at least 5 out of 7 days, to improve: Swallowing, Cognition, Language Skill s, and Compensatory Strategies. Receptive Language Skills. Speech Intelligibility Training. - Physical Therapy Patient needs Physical Therapy for a daily minimum of 1 hours at least 5 out of 7 days, to improve: M obility, Strengthening, Transfers, Stretching, ROM, Endurance, Ability to manage stairs, Gait, and Ba dalila. PHYSICAL EXAM - Gen Alert and awake Lying in bed No apparent distress Oriented to: person, time, and place - Skin No breakdown Normacephalic - Eyes No abnormalities - ENMT No abnormalities - Neck No abnormalities - CVS RRR - Chest mild decrease in breath sounds - Resp No wheezing - Abd Soft - GI Non distended Deferred - No abnormalities - Ext Mild bilateral lower extremity edema. - MSK 3/5 right facial weakness 4+/5 weakness in right upper and lower extremities. - Neuro 3/5 right facial weakness 4+/5 weakness in right upper and lower extremities, dysarthria, dysphagia - Psych Mild depression. ASSESSMENT: Pt. is a 70 yo Left-handed white female.On 06/25/2021 Pt. presented to [facility] ith sudden onset of right-side weakness.On 06/25/2021 she was admitted to [facility] with diagnosis Acute left frontal lobe cortical infarcts.Her impairment category is Stroke 01 - Ri ght Body (Left Brain) (01.2).Pre-morbidly, Pt. was independent/mod-I in Locomotion, Safety Awareness, Social Cognition, Balance, Transfers Control, Sphincter Control, Self-Care, and Communication; and s he had good Endurance.Currently, she has deficits of Safety Awareness, Social Cognition, Balance, Erlinda f-Care, Communication, and Transfers Control.Pt. is now referred to [facility] for acute in-patient rehabilitation in order to maximize patient's functional independence in activi ties of daily living, strength, ROM, and mobility.- Rehab Goal Patient has realistic goal of being discharged at assistance level 7-Ind to reside at Home with Pt s elf. MDM/PLAN: - Physical Therapy Gait dysfunction - to improve, our physical therapists will perform initial evaluation of pt's statu s upon admission and devise an individualized program for Gait Training, and Wheel Chair mobility Inability to transfer - to improve, our physical therapists will perform initial evaluation of pt's status upon admission and devise an individualized program for Bed mobility Need for home safety evaluation - to improve, our physical therapists will perform initial evaluatio n of pt's status upon admission and devise an individualized program for Home Evaluation Need in caregiver upon discharge - to improve, our physical therapists will perform initial evaluati on of pt's status upon admission and devise an individualized program for Caregiver Training Edema - to improve, our physical therapists will perform initial evaluation of pt's status upon admi ssion and devise an individualized program for Elevation Training, and Lymphedema Therapy New precaution - to improve, our physical therapists will perform initial evaluation of pt's status upon admission and devise an individualized program for Patient precaution education Poor balance - to improve, our physical therapists will perform initial evaluation of pt's status up on admission and devise an individualized program for Balance Training Achieving independence - to improve, our physical therapists will perform initial evaluation of pt's status upon admission and devise an individualized program for Community Reintegration Activities - Occupational Therapy ADL deficits - to improve, our occupation therapists will perform initial evaluation of pt's status upon admission and devise an individualized program for Bathing, Bed mobility, Community Reintegratio n, Cooking, Dressing, Eating, Fine Motor Skills, Grooming, Homemaking, Kitchen Mobility, Laundry, Pat ient Education, Safety Awareness, Splinting - Positioning, Transfers(Toilet, Tub, Shower), and Wheel Chair Management Cognitive deficits - to improve, our occupation therapists will perform initial evaluation of pt's s tatus upon admission and devise an individualized program for Cognition - orientation Need for career orientation teacher - to improve, our occupation therapists will perform initial evaluation of pt's status upon admission and devise an individualized program for Caregiver Training - Other See attached MAR (Medication Administration Record) - Diet Type Continue Regular - Diet - Liquid Texture Continue Regular - Tube Feed Continue N/A - Bladder care per protocol - Weight Bearing Precaution WBAT right LE - Skin care per protocol - Diet - Solid Texture Continue Regular - Shower allowing shower - Swallowing pt requires supervision and is on a modified diet of pureed during meal time for safe swallowing for Dementia, TBI, Stroke, or others FUNCTIONAL STATUS: UPDATED AT WEEKLY TEAM CONFERENCE - Bladder Same accident frequency: 7-Ind - No accidents in the past 7 days - Bowel Same accident frequency: 7-Ind - No accidents in the past 7 days - Walking Same score based on distance walked: 0(N/A) Same score based on distance walked: 3(>=150ft) - Wheelchair Same score based on distance traveled: 0(N/A) FUNCTIONAL STATUS: - Self-Care A. Eating Ind B. Grooming Ind C. Bathing Eneida D. Dressing - Upper Ind E. Dressing - Lower Eneida F. Toileting Ind - Sphincter Control G. Bladder control Ind H. Bowel control Ind - Transfers Control I. Bed/Chair/Wheelchair sup J. Toilet sup K. Tub/Shower sup - Locomotion L. Walk/Wheelchair (B) Jarrett M. Stairs sup - Communication N. Comprehension (B) Jarrett O. Expression (B) Eneida - Social Cognition P. Social Interaction Ind Q. Problem Solving Ind R. Memory Ind - Endurance Good - Balance Good - Safety Awareness Good QI SCORES: - Self-Care A. Eating 04-Supervision or touching assistance B. Oral hygiene 03-Partial/moderate assistance C. Toileting hygiene 03-Partial/moderate assistance E. Shower/bathe self 04-Supervision or touching assistance F. Upper body dressing 04-Supervision or touching assistance G. Lower body dressing 03-Partial/moderate assistance H. Putting on/taking off footwear 03-Partial/moderate assistance - Mobility A. Roll left and right 06-Independent B. Sit to lying 06-Independent C. Lying to sitting on side of bed 06-Independent D. Sit to stand 04-Supervision or touching assistance E. Chair/[id number] transfer 04-Supervision or touching assistance F. Toilet transfer 04-Supervision or touching assistance G. Car transfer 10-Not attempted due to environmental limitations I. Walk 10 feet 04-Supervision or touching assistance J. Walk 50 feet with two turns 04-Supervision or touching assistance K. Walk 150 feet 04-Supervision or touching assistance L. Walking 10 feet on uneven surfaces 10-Not attempted due to environmental limitations M. 1 step (curb) 10-Not attempted due to environmental limitations N. 4 steps 10-Not attempted due to environmental limitations O. 12 steps 10-Not attempted due to environmental limitations P. Picking up object 03-Partial/moderate assistance R. Wheel 50 feet with two turns 09-Not applicable S. Wheel 150 feet 09-Not applicable - Bladder and Bowel Bladder continence 0-Always continent Bowel continence 0-Always continent - Endurance Good - Balance Fair - Safety Awareness Poor CURRENT FUNC. DEFICITS: Self-Care, Balance, Safety Awareness, and Mobility SIGNATURE PANEL: (CDT)
[2021-07-03] MEDS: ATORVASTATIN 80 MG TAB PO SCH (19:28)
[2021-07-03] MEDS: HYDROCODONE/APAP 5/325 MG TAB PO PRN (19:28)
--- NOTE | 2021-07-03 22:37 | PN ---
Date of Progress Note: 07/03/2021 Subjective: The patient was seen this morning for followup. No new complaints or problems reported by the patient. She was awake, alert, oriented, answering all the questions appropriately and she is now able to speak more and more words with more clarity now. She still has some expressive aphasia, but definitely improving. Instead of one word at a time, she started saying two words together. For example, good morning, good afternoon, etc. She did have a bowel movement yesterday. Objective: Vital Signs: Reviewed. HEENT: Unremarkable. Lungs: Clear to auscultation. Heart: Sounds normal. Abdomen: Soft. Bowel sounds normal. No guarding, rigidity, tenderness, distention. Extremities: No leg edema. Neuro: No focal neurological deficits in terms of weakness, but she still has some flattening of the right-sided nasolabial fold, which is better compared to what it was few days ago and expressive aphasia still present, but better. Impression: 1. Stroke. 2. Hypertension. 3. Chronic obstructive pulmonary disease. 4. Hyperlipidemia. Plan: We will continue current medication. Continue physical therapy and speech therapy under guidance of Dr. Lazaro. I did encourage her to continue to do word therapy as discussed with her and asked her to try speaking in short sentences. I will see her tomorrow for followup. DOLORES/MODL Voice ID: [id number] Report ID: [id number] MTDD
[2021-07-04 04:31] LABS: Absolute Lymphocytes (CBC) 1.9 K/uL (0.7-4.9); Hematocrit 33.4 % (36.0-45.0); Lymphocytes % 27.9 % (15.3-44.8); MPV 7.6 fL (7.6-11.3); RBC Red Blood Cell Count 3.32 M/uL (3.86-4.86)
[2021-07-04 04:48] LABS: Potassium 4.2 mmol/L (3.5-5.1); Prealbumin 13.4 mg/dL (20-40)
[2021-07-04] MEDS: NICOTINE 14 MG/PAT TD SCH (06:40)
[2021-07-04] MEDS: LEVOTHYROXINE SOD 0.1 MG TAB PO SCH (06:40)
[2021-07-04] MEDS: PANTOPRAZOLE 40MG TABLET PO SCH (06:43)
[2021-07-04] MEDS: DOCUSATE NA 100 MG CAP PO SCH (07:58)
[2021-07-04] MEDS: CLOPIDOGREL 75 MG TABLET PO SCH (07:58)
[2021-07-04] MEDS: FOLIC ACID 1 MG TABLET PO SCH (07:58)
[2021-07-04] MEDS: ENSURE ENLIVE 237 ML CAN PO SCH ×2 (07:58→19:36)
[2021-07-04] MEDS: ASPIRIN EC 81 MG TAB PO SCH (07:58)
[2021-07-04] MEDS: CETIRIZINE HCL 5 MG TABLET PO SCH (07:59)
[2021-07-04] MEDS: lisinopriL 5 MG TAB PO SCH (07:59)
[2021-07-04] MEDS: TRELEGY ELLIPTA IH SCH (08:00)
[2021-07-04] MEDS: ENOXAPARIN 30 MG/0.3 ML SQ SCH (16:41)
--- NOTE | 2021-07-04 18:03 | R.PN ---
PROGRESS NOTES ENCOUNTER DATE AND TIME: 07/04/2021 17:56 (CDT) NAME CESAR RAO DATE OF : 1950 DATE OF ADMISSION: 06/28/2021 16:35 (CDT) Acute left frontal lobe cortical infarctsCHIEF COMPLAINT: Left sided stroke and right sided weakness SUBJECTIVE: Pt denied any depression. Pt denied any Shortness of Breath. Up and down 25 steps with independence, Ambulated 1000' without and assistive device and SB. indoors and outdoors with SBA. Improved speech and expression with speech therapy. WBC 6.9, Hgb 11.8, prealbumin 13.4, bacteria 20 to 50, esterase 1+, WBC 5-10. VITAL SIGNS Temperature: 97.5 F SBP/DBP: 119/78 Pulse: 61 Resp: 16 MEDICATION ALLERGIES: No Known Drug Allergies (NKDA) ENVIRONMENTAL ALLERGIES: - Substance Allergies None Known - Other Allergies None Known NURSING: - Shower allowing shower - Bladder care per protocol - Skin care per protocol PRECAUTIONS: - Swallowing pt requires supervision and is on a modified diet of pureed during meal time for safe swallowing ACTIVITIES OOB only with supervision THERAPIES: - Dietary and Nutrition Adequate Nutrition. Nutritional Education. Nutritional Supplements. - Occupational Therapy Cognitive Retraining. Patient needs Occupational Therapy for a daily minimum of 1.5 hours at least 5 out of 7 days, to improve Activities of Daily Living, including: Eating, Grooming, Bathing, Dressing, Toileting, Toilet Transfers, Community Reintegration, Higher functional activities, Adaptive Equipme nt, Splinting, Household Tasks, and Other activities as determined. Visual Perceptual Training. - Speech Therapy Cognitive Training. Expressive Language Skills. Memory Strategies. Patient needs Speech Therapy for a daily minimum of 1 hours at least 5 out of 7 days, to improve: Swallowing, Cognition, Language Skill s, and Compensatory Strategies. Receptive Language Skills. Speech Intelligibility Training. - Physical Therapy Patient needs Physical Therapy for a daily minimum of 1 hours at least 5 out of 7 days, to improve: M obility, Strengthening, Transfers, Stretching, ROM, Endurance, Ability to manage stairs, Gait, and Ba dalila. PHYSICAL EXAM - Gen Alert and awake Lying in bed No apparent distress Oriented to: person, time, and place - Skin No breakdown Normacephalic - Eyes No abnormalities - ENMT No abnormalities - Neck No abnormalities - CVS RRR - Chest mild decrease in breath sounds - Resp No wheezing - Abd Soft - GI Non distended Deferred - No abnormalities - Ext Mild bilateral lower extremity edema. - MSK 3/5 right facial weakness 4+/5 weakness in right upper and lower extremities. - Neuro 3/5 right facial weakness 4+/5 weakness in right upper and lower extremities, dysarthria, dysphagia - Psych Mild depression. ASSESSMENT: Pt. is a 70 yo Left-handed white female.On 06/25/2021 Pt. presented to [facility] ith sudden onset of right-side weakness.On 06/25/2021 she was admitted to [facility] with diagnosis Acute left frontal lobe cortical infarcts.Her impairment category is Stroke 01 - Ri ght Body (Left Brain) (01.2).Pre-morbidly, Pt. was independent/mod-I in Locomotion, Safety Awareness, Social Cognition, Balance, Transfers Control, Sphincter Control, Self-Care, and Communication; and s he had good Endurance.Currently, she has deficits of Safety Awareness, Social Cognition, Balance, Erlinda f-Care, Communication, and Transfers Control.Pt. is now referred to [facility] for acute in-patient rehabilitation in order to maximize patient's functional independence in activi ties of daily living, strength, ROM, and mobility.- Rehab Goal Patient has realistic goal of being discharged at assistance level 7-Ind to reside at Home with Pt s elf. MDM/PLAN: - Physical Therapy Gait dysfunction - to improve, our physical therapists will perform initial evaluation of pt's statu s upon admission and devise an individualized program for Gait Training, and Wheel Chair mobility Inability to transfer - to improve, our physical therapists will perform initial evaluation of pt's status upon admission and devise an individualized program for Bed mobility Need for home safety evaluation - to improve, our physical therapists will perform initial evaluatio n of pt's status upon admission and devise an individualized program for Home Evaluation Need in caregiver upon discharge - to improve, our physical therapists will perform initial evaluati on of pt's status upon admission and devise an individualized program for Caregiver Training Edema - to improve, our physical therapists will perform initial evaluation of pt's status upon admi ssion and devise an individualized program for Elevation Training, and Lymphedema Therapy New precaution - to improve, our physical therapists will perform initial evaluation of pt's status upon admission and devise an individualized program for Patient precaution education Poor balance - to improve, our physical therapists will perform initial evaluation of pt's status up on admission and devise an individualized program for Balance Training Achieving independence - to improve, our physical therapists will perform initial evaluation of pt's status upon admission and devise an individualized program for Community Reintegration Activities - Occupational Therapy ADL deficits - to improve, our occupation therapists will perform initial evaluation of pt's status upon admission and devise an individualized program for Bathing, Bed mobility, Community Reintegratio n, Cooking, Dressing, Eating, Fine Motor Skills, Grooming, Homemaking, Kitchen Mobility, Laundry, Pat ient Education, Safety Awareness, Splinting - Positioning, Transfers(Toilet, Tub, Shower), and Wheel Chair Management Cognitive deficits - to improve, our occupation therapists will perform initial evaluation of pt's s tatus upon admission and devise an individualized program for Cognition - orientation Need for critical care unit manager - to improve, our occupation therapists will perform initial evaluation of pt's status upon admission and devise an individualized program for Caregiver Training - Other See attached MAR (Medication Administration Record) - Diet Type Continue Regular - Diet - Liquid Texture Continue Regular - Tube Feed Continue N/A - Bladder care per protocol - Weight Bearing Precaution WBAT right LE - Skin care per protocol - Diet - Solid Texture Continue Regular - Shower allowing shower - Swallowing pt requires supervision and is on a modified diet of pureed during meal time for safe swallowing for Dementia, TBI, Stroke, or others FUNCTIONAL STATUS: UPDATED AT WEEKLY TEAM CONFERENCE - Bladder Same accident frequency: 7-Ind - No accidents in the past 7 days - Bowel Same accident frequency: 7-Ind - No accidents in the past 7 days - Walking Same score based on distance walked: 0(N/A) Same score based on distance walked: 3(>=150ft) - Wheelchair Same score based on distance traveled: 0(N/A) FUNCTIONAL STATUS: - Self-Care A. Eating Ind B. Grooming Ind C. Bathing Eneida D. Dressing - Upper Ind E. Dressing - Lower Eneida F. Toileting Ind - Sphincter Control G. Bladder control Ind H. Bowel control Ind - Transfers Control I. Bed/Chair/Wheelchair sup J. Toilet sup K. Tub/Shower sup - Locomotion L. Walk/Wheelchair (B) Jarrett M. Stairs sup - Communication N. Comprehension (B) Jarrett O. Expression (B) Eneida - Social Cognition P. Social Interaction Ind Q. Problem Solving Ind R. Memory Ind - Endurance Good - Balance Good - Safety Awareness Good QI SCORES: - Self-Care A. Eating 04-Supervision or touching assistance B. Oral hygiene 03-Partial/moderate assistance C. Toileting hygiene 03-Partial/moderate assistance E. Shower/bathe self 04-Supervision or touching assistance F. Upper body dressing 04-Supervision or touching assistance G. Lower body dressing 03-Partial/moderate assistance H. Putting on/taking off footwear 03-Partial/moderate assistance - Mobility A. Roll left and right 06-Independent B. Sit to lying 06-Independent C. Lying to sitting on side of bed 06-Independent D. Sit to stand 04-Supervision or touching assistance E. Chair/[id number] transfer 04-Supervision or touching assistance F. Toilet transfer 04-Supervision or touching assistance G. Car transfer 10-Not attempted due to environmental limitations I. Walk 10 feet 04-Supervision or touching assistance J. Walk 50 feet with two turns 04-Supervision or touching assistance K. Walk 150 feet 04-Supervision or touching assistance L. Walking 10 feet on uneven surfaces 10-Not attempted due to environmental limitations M. 1 step (curb) 10-Not attempted due to environmental limitations N. 4 steps 10-Not attempted due to environmental limitations O. 12 steps 10-Not attempted due to environmental limitations P. Picking up object 03-Partial/moderate assistance R. Wheel 50 feet with two turns 09-Not applicable S. Wheel 150 feet 09-Not applicable - Bladder and Bowel Bladder continence 0-Always continent Bowel continence 0-Always continent - Endurance Good - Balance Fair - Safety Awareness Poor CURRENT FUNC. DEFICITS: Self-Care, Balance, Safety Awareness, and Mobility SIGNATURE PANEL: (CDT)
[2021-07-04] MEDS: ATORVASTATIN 80 MG TAB PO SCH (19:35)
[2021-07-04] MEDS: HYDROCODONE/APAP 5/325 MG TAB PO PRN (19:35)
--- NOTE | 2021-07-05 01:18 | PN ---
Date of Progress Note: 07/04/2021 Subjective: Patient was seen this morning for followup. No new complaints or problems reported by p julius lying in bed, not in any distress. She is able to speak with few words. She still has some e xpressive aphasia. Speech is little bit difficult to understand, but overall day to day there has be en improvement now. Denies any headache. No visual complaints. No tingling, numbness of hands. No arm or leg weakness. Objective: Vital Signs: Reviewed. HEENT: Unremarkable. Lungs: Clear to auscultation. Heart: Heart sounds normal. Abdomen: Soft, bowel sounds normal. No guarding, rigidity, tenderness, distention. Extremities: No leg edema. Laboratory Data: White count 6.9, hemoglobin 11.8, platelets 264. Sodium 144, potassium 4.2, chlori de 111, bicarb 29, BUN 15, creatinine 0.87, glucose 99. Impression: 1.Stroke. 2.Hypertension. 3.Hyperlipidemia. 4.Chronic obstructive pulmonary disease. 5.Anemia. Plan: We will go ahead and continue current DVT prophylaxis. We will keep the lisinopril on hold if systolic blood pressure less than 140 and the majority of her blood pressure readings are lower than that. Continue high-dose statin therapy. Continue physical therapy, speech therapy and I will see her klaa arriaga for followup. DOLORES/MODL Voice ID: [id number] Report ID: [id number]
[2021-07-05] MEDS: LEVOTHYROXINE SOD 0.1 MG TAB PO SCH (06:32)
[2021-07-05] MEDS: PANTOPRAZOLE 40MG TABLET PO SCH (07:15)
[2021-07-05] MEDS: DOCUSATE NA 100 MG CAP PO SCH (08:00)
[2021-07-05] MEDS: ASPIRIN EC 81 MG TAB PO SCH (08:00)
[2021-07-05] MEDS: CLOPIDOGREL 75 MG TABLET PO SCH (08:00)
[2021-07-05] MEDS: CETIRIZINE HCL 5 MG TABLET PO SCH (08:00)
[2021-07-05] MEDS: ENSURE ENLIVE 237 ML CAN PO SCH ×2 (08:00→19:52)
[2021-07-05] MEDS: NICOTINE 14 MG/PAT TD SCH (08:00)
[2021-07-05] MEDS: lisinopriL 5 MG TAB PO SCH (08:00)
[2021-07-05] MEDS: FOLIC ACID 1 MG TABLET PO SCH (08:01)
[2021-07-05] MEDS: TRELEGY ELLIPTA IH SCH (08:08)
--- NOTE | 2021-07-05 10:14 | P.RH.PN ---
Estimated Length of Stay: 10 Expected Discharge Date: 07/08/21 Vital Signs: Last Vital Signs Temp 97.6 F 07/05/21 07:35 Pulse 63 07/05/21 08:00 Resp 18 07/05/21 07:35 BP 116/80 07/05/21 08:00 Pulse Ox 100 07/05/21 07:35 Laboratory: Laboratory Last Values WBC 6.9 K/uL (4.3-10.9) 07/04/21 04:13 RBC 3.32 M/uL (3.86-4.86) L 07/04/21 04:13 Hgb 11.8 g/dL (12.0-15.0) L 07/04/21 04:13 Hct 33.4 % (36.0-45.0) L 07/04/21 04:13 MCV 100.7 fL (80-100) H 07/04/21 04:13 MCH 35.4 pg (27.0-35.0) H 07/04/21 04:13 MCHC 35.2 g/dL (32.0-36.0) 07/04/21 04:13 RDW 12.5 % (12.1-15.2) 07/04/21 04:13 Plt Count 264 K/uL (152-406) 07/04/21 04:13 MPV 7.6 fL (7.6-11.3) 07/04/21 04:13 Neutrophils % 54.3 % (41.7-73.7) 07/04/21 04:13 Lymphocytes % 27.9 % (15.3-44.8) 07/04/21 04:13 Monocytes % 14.8 % (3.3-12.3) H 07/04/21 04:13 Eosinophils % 1.9 % (0-4.4) 07/04/21 04:13 Basophils % 1.1 % (0-1.3) 07/04/21 04:13 Absolute Neutrophils 3.7 K/uL (1.8-8.0) 07/04/21 04:13 Absolute Lymphocytes 1.9 K/uL (0.7-4.9) 07/04/21 04:13 Absolute Monocytes 1.0 K/uL (0.1-1.3) 07/04/21 04:13 Absolute Eosinophils 0.1 K/uL (0-0.5) 07/04/21 04:13 Absolute Basophils 0.1 K/uL (0-0.5) 07/04/21 04:13 Sodium 144 mmol/L (136-145) 07/04/21 04:13 Potassium 4.2 mmol/L (3.5-5.1) 07/04/21 04:13 Chloride 111 mmol/L (98-107) H 07/04/21 04:13 Carbon Dioxide 29 mmol/L (21-32) 07/04/21 04:13 Anion Gap 8.2 mEq/L (5.0-15.0) 07/04/21 04:13 BUN 15 mg/dL (7-18) 07/04/21 04:13 Creatinine 0.87 mg/dL (0.55-1.3) 07/04/21 04:13 Estimated GFR 64 mL/min (=/>90) L 07/04/21 04:13 Glucose 99 mg/dL (74-106) 07/04/21 04:13 Calcium 8.9 mg/dL (8.5-10.1) 07/04/21 04:13 Magnesium 2.0 mg/dL (1.8-2.4) 07/04/21 04:13 Albumin 3.0 g/dL (3.4-5.0) L 07/04/21 04:13 Prealbumin 13.4 mg/dL (20-40) L 07/04/21 04:13 Urine Color Yellow (Yellow) 06/28/21 21:21 Urine Appearance Clear (Clear) 06/28/21 21:21 Urine pH 6.5 (5.0-7.0) 06/28/21 21:21 Ur Specific [place] 1.020 (1.005-1.030) 06/28/21 21:21 Glucose (UA)(Auto) Negative (Negative) 06/28/21 21:21 Urine Ketones 1+ (Negative) H 06/28/21 21:21 Urine Blood Negative (Negative) 06/28/21 21:21 Urine Nitrite Negative (Negative) 06/28/21 21:21 Urine Bilirubin ND 06/28/21 21:21 Urine Urobilinogen 1.0 mg/dL (0.2-1.0) 06/28/21 21:21 Ur Leukocyte Esterase 1+ (Negative) H 06/28/21 21:21 Urine RBC None seen /HPF (NONE SEEN) 06/28/21 21:21 Urine WBC 5-10 /HPF (<5) H 06/28/21 21:21 Ur Squamous Epith Cells <5 /HPF (NONE SEEN) 06/28/21 21:21 Calcium Oxalate Crystal Few (NONE SEEN) 06/28/21 21:21 Urine Bacteria 20-50 /HPF (<20) H 06/28/21 21:21 Urine Mucus Mod /HPF (NONE SEEN) 06/28/21 21:21 Urine Culture Reflexed Not needed 06/28/21 21:21 Urine Total Protein Negative (Negative) 06/28/21 21:21 SARS-CoV-2 Rap RNA(RT-PCR) Negative (NEGATIVE) 06/28/21 19:45 Weight: 135 lb Wound Present: No Closed Surgical Incision Present: No Negative Pressure Wound Therapy Present: No Physician Update: Independent with gait 2000', 25 steps independent. Doing well with articulation and fine motor movement. She will have outpatient speech occupational for motor skills. Functional Improvement: Patient has met all short-term and long-term goals at this time, w/ the exception of car transfers. Patient completes tasks Independently, w/o LOB, and good technique, and overall safety awareness. Summary: Patient's care plan and correction goals have been reviewed and revised as necessary. Please see the Rehabilitation Signature page for all necessary signatures.
[2021-07-05] MEDS: ENOXAPARIN 30 MG/0.3 ML SQ SCH (16:32)
--- NOTE | 2021-07-05 19:48 | PN ---
Date of Progress Note: 07/05/2021 Subjective: The patient was seen this morning for followup. No new complaints or problems reported by the patient lying in bed, not in distress. Objective: Vital Signs: Reviewed. HEENT: Unremarkable. Lungs: Clear to auscultation. Heart: Heart sounds normal. Abdomen: Soft, bowel sounds normal. No guarding, rigidity, tenderness, distention. Extremities: No leg edema. Neuro: Still has some expressive aphasia, but her speech is improving on a day-to-day basis. No wea kness of arms or legs. Impression: 1.Stroke. 2.Hypertension. 3.Hyperlipidemia. 4.Chronic obstructive pulmonary disease. Plan: We will continue current medications. Continue nicotine patch 14 mg dose and upon discharge f rom the hospital she was advised that she should continue to use nicotine patch and she may reduce do se down to 7 mg daily and after using it for couple of weeks, she can stop using patch. She was stro ngly encouraged not to restart her smoking. Continue current high dose statin and current anti-plate let therapy. Continue physical therapy and speech therapy under guidance of Dr. Lazaro. DOLORES/MODL Voice ID: [id number] Report ID: [id number]
[2021-07-05] MEDS: ATORVASTATIN 80 MG TAB PO SCH (19:51)
[2021-07-05] MEDS: HYDROCODONE/APAP 5/325 MG TAB PO PRN (19:55)
[2021-07-06] MEDS: LEVOTHYROXINE SOD 0.1 MG TAB PO SCH (05:31)
[2021-07-06] MEDS: ASPIRIN EC 81 MG TAB PO SCH (07:47)
[2021-07-06] MEDS: CLOPIDOGREL 75 MG TABLET PO SCH (07:47)
[2021-07-06] MEDS: FOLIC ACID 1 MG TABLET PO SCH (07:47)
[2021-07-06] MEDS: NICOTINE 14 MG/PAT TD SCH (07:47)
[2021-07-06] MEDS: DOCUSATE NA 100 MG CAP PO SCH (07:47)
[2021-07-06] MEDS: ENSURE ENLIVE 237 ML CAN PO SCH ×2 (07:48→20:00)
[2021-07-06] MEDS: CETIRIZINE HCL 5 MG TABLET PO SCH (07:48)
[2021-07-06] MEDS: lisinopriL 5 MG TAB PO SCH (07:49)
[2021-07-06] MEDS: PANTOPRAZOLE 40MG TABLET PO SCH (07:53)
[2021-07-06] MEDS: TRELEGY ELLIPTA IH SCH (07:54)
--- NOTE | 2021-07-06 16:19 | PN ---
Date of Progress Note: 07/06/2021 Subjective: The patient was seen this morning for followup. No new complaints or problems reported. She was sitting in the chair. Her was with her at bedside. Denies any new complaints. No headache. No chest pain. No shortness of breath. Objective: Vital Signs: Reviewed. HEENT: Unremarkable. Lungs: Clear to auscultation. Heart: Sounds normal. Abdomen: Soft. Bowel sounds normal. No guarding, rigidity, tenderness, distention. Extremities: No leg edema. Impression: 1.Stroke. 2.Hypertension. 3.Hyperlipidemia. 4.Chronic obstructive pulmonary disease. Plan: We will go ahead and continue current aspirin and Plavix. Continue DVT prophylaxis with Loven ox. We will go ahead and continue current antihypertensive medication, lisinopril per order and high dose statin therapy. The patient to continue to work with Physical Therapy, Speech Therapy. She is scheduled to go home on Thursday, which is 07/08/2021 this week and I will send her prescriptions to [facility] and will try to pick it up from the pharmacy. 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 She understands not to smoke anymore now. DOLORES/MODL Voice ID: [id number] Report ID: [id number]
[2021-07-06] MEDS: ENOXAPARIN 30 MG/0.3 ML SQ SCH (16:47)
--- NOTE | 2021-07-06 17:05 | R.PN ---
PROGRESS NOTES ENCOUNTER DATE AND TIME: 07/06/2021 17:01 (CDT) NAME CESAR RAO DATE OF : 1950 DATE OF ADMISSION: 06/28/2021 16:35 (CDT) Acute left frontal lobe cortical infarctsCHIEF COMPLAINT: Left sided stroke and right sided weakness SUBJECTIVE: Pt denied any depression. Pt denied any Shortness of Breath. Ambulated 750' without an assistive device with SBA. Improved speech and expression with speech thera py. WBC 6.9, Hgb 11.8, prealbumin 13.4, bacteria 20 to 50, esterase 1+, WBC 5-10. VITAL SIGNS Temperature: 97.8 F SBP/DBP: 148/84 Pulse: 57 Resp: 16 MEDICATION ALLERGIES: No Known Drug Allergies (NKDA) ENVIRONMENTAL ALLERGIES: - Substance Allergies None Known - Other Allergies None Known NURSING: - Shower allowing shower - Bladder care per protocol - Skin care per protocol PRECAUTIONS: - Swallowing pt requires supervision and is on a modified diet of pureed during meal time for safe swallowing ACTIVITIES OOB only with supervision THERAPIES: - Dietary and Nutrition Adequate Nutrition. Nutritional Education. Nutritional Supplements. - Occupational Therapy Cognitive Retraining. Patient needs Occupational Therapy for a daily minimum of 1.5 hours at least 5 out of 7 days, to improve Activities of Daily Living, including: Eating, Grooming, Bathing, Dressing, Toileting, Toilet Transfers, Community Reintegration, Higher functional activities, Adaptive Equipme nt, Splinting, Household Tasks, and Other activities as determined. Visual Perceptual Training. - Speech Therapy Cognitive Training. Expressive Language Skills. Memory Strategies. Patient needs Speech Therapy for a daily minimum of 1 hours at least 5 out of 7 days, to improve: Swallowing, Cognition, Language Skill s, and Compensatory Strategies. Receptive Language Skills. Speech Intelligibility Training. - Physical Therapy Patient needs Physical Therapy for a daily minimum of 1 hours at least 5 out of 7 days, to improve: M obility, Strengthening, Transfers, Stretching, ROM, Endurance, Ability to manage stairs, Gait, and Ba dalila. PHYSICAL EXAM - Gen Alert and awake Lying in bed No apparent distress Oriented to: person, time, and place - Skin No breakdown Normacephalic - Eyes No abnormalities - ENMT No abnormalities - Neck No abnormalities - CVS RRR - Chest mild decrease in breath sounds - Resp No wheezing - Abd Soft - GI Non distended Deferred - No abnormalities - Ext Mild bilateral lower extremity edema. - MSK 3/5 right facial weakness 4+/5 weakness in right upper and lower extremities. - Neuro 3/5 right facial weakness 4+/5 weakness in right upper and lower extremities, dysarthria, dysphagia - Psych Mild depression. ASSESSMENT: Pt. is a 70 yo Left-handed white female.On 06/25/2021 Pt. presented to [facility] ith sudden onset of right-side weakness.On 06/25/2021 she was admitted to [facility] with diagnosis Acute left frontal lobe cortical infarcts.Her impairment category is Stroke 01 - Ri ght Body (Left Brain) (01.2).Pre-morbidly, Pt. was independent/mod-I in Locomotion, Safety Awareness, Social Cognition, Balance, Transfers Control, Sphincter Control, Self-Care, and Communication; and s he had good Endurance.Currently, she has deficits of Safety Awareness, Social Cognition, Balance, Erlinda f-Care, Communication, and Transfers Control.Pt. is now referred to [facility] for acute in-patient rehabilitation in order to maximize patient's functional independence in activi ties of daily living, strength, ROM, and mobility.- Rehab Goal Patient has realistic goal of being discharged at assistance level 7-Ind to reside at Home with Pt s elf. MDM/PLAN: - Physical Therapy Gait dysfunction - to improve, our physical therapists will perform initial evaluation of pt's statu s upon admission and devise an individualized program for Gait Training, and Wheel Chair mobility Inability to transfer - to improve, our physical therapists will perform initial evaluation of pt's status upon admission and devise an individualized program for Bed mobility Need for home safety evaluation - to improve, our physical therapists will perform initial evaluatio n of pt's status upon admission and devise an individualized program for Home Evaluation Need in caregiver upon discharge - to improve, our physical therapists will perform initial evaluati on of pt's status upon admission and devise an individualized program for Caregiver Training Edema - to improve, our physical therapists will perform initial evaluation of pt's status upon admi ssion and devise an individualized program for Elevation Training, and Lymphedema Therapy New precaution - to improve, our physical therapists will perform initial evaluation of pt's status upon admission and devise an individualized program for Patient precaution education Poor balance - to improve, our physical therapists will perform initial evaluation of pt's status up on admission and devise an individualized program for Balance Training Achieving independence - to improve, our physical therapists will perform initial evaluation of pt's status upon admission and devise an individualized program for Community Reintegration Activities - Occupational Therapy ADL deficits - to improve, our occupation therapists will perform initial evaluation of pt's status upon admission and devise an individualized program for Bathing, Bed mobility, Community Reintegratio n, Cooking, Dressing, Eating, Fine Motor Skills, Grooming, Homemaking, Kitchen Mobility, Laundry, Pat ient Education, Safety Awareness, Splinting - Positioning, Transfers(Toilet, Tub, Shower), and Wheel Chair Management Cognitive deficits - to improve, our occupation therapists will perform initial evaluation of pt's s tatus upon admission and devise an individualized program for Cognition - orientation Need for aged or disabled carer - to improve, our occupation therapists will perform initial evaluation of pt's status upon admission and devise an individualized program for Caregiver Training - Other See attached MAR (Medication Administration Record) - Diet Type Continue Regular - Diet - Liquid Texture Continue Regular - Tube Feed Continue N/A - Bladder care per protocol - Weight Bearing Precaution WBAT right LE - Skin care per protocol - Diet - Solid Texture Continue Regular - Shower allowing shower - Swallowing pt requires supervision and is on a modified diet of pureed during meal time for safe swallowing for Dementia, TBI, Stroke, or others FUNCTIONAL STATUS: UPDATED AT WEEKLY TEAM CONFERENCE - Bladder Same accident frequency: 7-Ind - No accidents in the past 7 days - Bowel Same accident frequency: 7-Ind - No accidents in the past 7 days - Walking Same score based on distance walked: 0(N/A) Same score based on distance walked: 3(>=150ft) - Wheelchair Same score based on distance traveled: 0(N/A) FUNCTIONAL STATUS: - Self-Care A. Eating Ind B. Grooming Ind C. Bathing Eneida D. Dressing - Upper Ind E. Dressing - Lower Eneida F. Toileting Ind - Sphincter Control G. Bladder control Ind H. Bowel control Ind - Transfers Control I. Bed/Chair/Wheelchair sup J. Toilet sup K. Tub/Shower sup - Locomotion L. Walk/Wheelchair (B) Jarrett M. Stairs sup - Communication N. Comprehension (B) Jarrett O. Expression (B) Eneida - Social Cognition P. Social Interaction Ind Q. Problem Solving Ind R. Memory Ind - Endurance Good - Balance Good - Safety Awareness Good QI SCORES: - Self-Care A. Eating 04-Supervision or touching assistance B. Oral hygiene 03-Partial/moderate assistance C. Toileting hygiene 03-Partial/moderate assistance E. Shower/bathe self 04-Supervision or touching assistance F. Upper body dressing 04-Supervision or touching assistance G. Lower body dressing 03-Partial/moderate assistance H. Putting on/taking off footwear 03-Partial/moderate assistance - Mobility A. Roll left and right 06-Independent B. Sit to lying 06-Independent C. Lying to sitting on side of bed 06-Independent D. Sit to stand 04-Supervision or touching assistance E. Chair/lok-hr-pfqxm transfer 04-Supervision or touching assistance F. Toilet transfer 04-Supervision or touching assistance G. Car transfer 10-Not attempted due to environmental limitations I. Walk 10 feet 04-Supervision or touching assistance J. Walk 50 feet with two turns 04-Supervision or touching assistance K. Walk 150 feet 04-Supervision or touching assistance L. Walking 10 feet on uneven surfaces 10-Not attempted due to environmental limitations M. 1 step (curb) 10-Not attempted due to environmental limitations N. 4 steps 10-Not attempted due to environmental limitations O. 12 steps 10-Not attempted due to environmental limitations P. Picking up object 03-Partial/moderate assistance R. Wheel 50 feet with two turns 09-Not applicable S. Wheel 150 feet 09-Not applicable - Bladder and Bowel Bladder continence 0-Always continent Bowel continence 0-Always continent - Endurance Good - Balance Fair - Safety Awareness Poor CURRENT FUNC. DEFICITS: Self-Care, Balance, Safety Awareness, and Mobility SIGNATURE PANEL: (CDT)
[2021-07-06] MEDS: ATORVASTATIN 80 MG TAB PO SCH (19:38)
[2021-07-06] MEDS: HYDROCODONE/APAP 5/325 MG TAB PO PRN (19:38)
[2021-07-07] MEDS: LEVOTHYROXINE SOD 0.1 MG TAB PO SCH (06:23)
[2021-07-07] MEDS: ENSURE ENLIVE 237 ML CAN PO SCH ×2 (08:00→19:36)
[2021-07-07] MEDS: FOLIC ACID 1 MG TABLET PO SCH (08:32)
[2021-07-07] MEDS: CLOPIDOGREL 75 MG TABLET PO SCH (08:32)
[2021-07-07] MEDS: CETIRIZINE HCL 5 MG TABLET PO SCH (08:33)
[2021-07-07] MEDS: ASPIRIN EC 81 MG TAB PO SCH (08:34)
[2021-07-07] MEDS: DOCUSATE NA 100 MG CAP PO SCH (08:34)
[2021-07-07] MEDS: NICOTINE 14 MG/PAT TD SCH (08:36)
[2021-07-07] MEDS: PANTOPRAZOLE 40MG TABLET PO SCH (08:38)
[2021-07-07] MEDS: TRELEGY ELLIPTA IH SCH (08:38)
[2021-07-07] MEDS: lisinopriL 20 MG TAB PO SCH (08:42)
--- NOTE | 2021-07-07 10:32 | PN ---
Date of Progress Note: 07/07/2021 Subjective: The patient was seen this morning for followup. No new complaints or problems reported by the patient. She was sitting in chair. No new complaints or problems reported. Requesting somet kathy to help her sleep at night when she goes home because she says that this is ongoing problem for her and she was for her insomnia problem for which she will not do so and we will try some medications for her. Objective: Vital Signs: Reviewed. HEENT: Unremarkable. Lungs: Clear to auscultation. Heart: Sounds normal. Abdomen: Soft. Bowel sounds normal. No guarding, rigidity, tenderness, distention. Extremities: No leg edema. Impression: 1.Stroke. 2.Hypertension. 3.Hyperlipidemia. 4.Insomnia. 5.Chronic obstructive pulmonary disease. Plan: We will continue current medications. Continue current antihypertensive medications, statin t herapy, DVT prophylaxis, and anti-platelet therapy. Yesterday, I did send the prescription to her [facility] regarding new medication that she will be taking upon discharge and today I will send prescrip tion for trazodone at her pharmacy. I have instructed her to take half a tablet at bedtime. If she does not respond to this, we will increase the dose as the time goes on. She is scheduled to go home tomorrow from rehab. I will see her in 1 week. DOLORES/MODL Voice ID: [id number] Report ID: [id number]
[2021-07-07] MEDS: ENOXAPARIN 30 MG/0.3 ML SQ SCH (16:57)
[2021-07-07] MEDS: ATORVASTATIN 80 MG TAB PO SCH (19:36)
[2021-07-07] MEDS: HYDROCODONE/APAP 5/325 MG TAB PO PRN (19:36)
[2021-07-08] MEDS: LEVOTHYROXINE SOD 0.1 MG TAB PO SCH (07:06)
[2021-07-08] MEDS: PANTOPRAZOLE 40MG TABLET PO SCH (07:07)
[2021-07-08 07:41] VITALS: BP 148/84; TEMP 97.6
[2021-07-08] MEDS: DOCUSATE NA 100 MG CAP PO SCH (07:44)
[2021-07-08] MEDS: ASPIRIN EC 81 MG TAB PO SCH (07:44)
[2021-07-08] MEDS: CLOPIDOGREL 75 MG TABLET PO SCH (07:44)
[2021-07-08] MEDS: lisinopriL 20 MG TAB PO SCH (07:45)
[2021-07-08] MEDS: NICOTINE 14 MG/PAT TD SCH (07:45)
[2021-07-08] MEDS: FOLIC ACID 1 MG TABLET PO SCH (07:45)
[2021-07-08] MEDS: TRELEGY ELLIPTA IH SCH (07:46)
[2021-07-08] MEDS: ENSURE ENLIVE 237 ML CAN PO SCH (07:47)
[2021-07-08] MEDS: CETIRIZINE HCL 5 MG TABLET PO SCH (07:47)
--- NOTE | 2021-07-09 16:26 | R.DS ---
DISCHARGE SUMMARY FACILITY [facility] MR# [id number] NAME CESAR RAO ADDRESS [address] [place] [address] [address]IP [id number] PHONE DATE OF 1950 AGE 70 SSN# [id number] GENDER Female DEXTERITY Left-handed MARITAL STATUS RACE White ENCOUNTER PHYSICIAN Dr. Mike Lazaro M.D. REFERRING DOCTOR Dr. Charlie Monge REFERRING FACILITY [facility] DISCHARGE DIAGNOSIS: - Stroke 01 - Right Body (Left Brain) (01.2) Acute left frontal lobe cortical infarcts. DATE OF ADMISSION 06/28/2021 16:35 (CDT) MEDICATION ALLERGIES: No Known Drug Allergies (NKDA) ENVIRONMENTAL ALLERGIES: - Substance Allergies None Known - Other Allergies None Known DISCHARGE MEDICATIONS: Other- ContinueSee attached MAR (Medication Administration Record). NURSING: - Shower allowing shower - Bladder care per protocol - Skin care per protocol PRECAUTIONS: - Swallowing pt requires supervision and is on a modified diet of pureed during meal time for safe swallowing ACTIVITIES OOB only with supervision THERAPIES: - Dietary and Nutrition Adequate Nutrition Nutritional Education Nutritional Supplements - Occupational Therapy Cognitive Retraining Patient needs Occupational Therapy for a daily minimum of 1.5 hours at least 5 out of 7 days, to impr ove Activities of Daily Living, including: Eating, Grooming, Bathing, Dressing, Toileting, Toilet Tra nsfers, Community Reintegration, Higher functional activities, Adaptive Equipment, Splinting, Househo ld Tasks, and Other activities as determined Visual Perceptual Training - Speech Therapy Cognitive Training Expressive Language Skills Memory Strategies Patient needs Speech Therapy for a daily minimum of 1 hours at least 5 out of 7 days, to improve: Jef patinog, Cognition, Language Skills, and Compensatory Strategies Receptive Language Skills Speech Intelligibility Training - Physical Therapy Patient needs Physical Therapy for a daily minimum of 1 hours at least 5 out of 7 days, to improve: M obility, Strengthening, Transfers, Stretching, ROM, Endurance, Ability to manage stairs, Gait, and Ba dalila HISTORY OF PRESENT ILLNESS: Pt. is a 70 yo Left-handed white female.On 06/25/2021 Pt. presented to [facility] w ith sudden onset of right-side weakness.On 06/25/2021 she was admitted to [facility] with diagnosis Acute left frontal lobe cortical infarcts.Her impairment category is Stroke 01 - Ri ght Body (Left Brain) (01.2).Pre-morbidly, Pt. was independent/mod-I in Locomotion, Safety Awareness, Social Cognition, Balance, Transfers Control, Sphincter Control, Self-Care, and Communication; and s he had good Endurance.Currently, she has deficits of Safety Awareness, Social Cognition, Balance, Erlinda f-Care, Communication, and Transfers Control.Pt. is now referred to [facility] for acute in-patient rehabilitation in order to maximize patient's functional independence in activi ties of daily living, strength, ROM, and mobility.- Rehab Goal Patient has realistic goal of being discharged at assistance level 7-Ind to reside at Home with Pt s elf. Ms. Rao is a 70 year old female who lives primarily by herself in a single story home. Her is primarily out of town for work, which requires Ms. Rao to be independent withall activities suc h as self-cares, cooking, cleaning, mobility, caring for her dog, and communication. On 06/25/2021, Ms Boyd Rao suffered multiple left frontal lobe cortical infarcts leaving her with severe communication d eficits, severe swallowing deficits, impaired safety awareness, reduced balance, and significant impu lsivity. Although she is able to ambulate significant distances and transfer without the need for phy sical lifting, she exhibits poor safety awareness and impulsivity, which generates a high risk for se russell injury and falls. At this time, Ms. Rao presents with severe dysarthria and is unable to effe ctively communicate at all verbally. She can communicate with writing with some mild impairment. Th is poses a significant safetyrisk for Ms. Rao to return home. If she were to be at home and needed to contact someone for an issue, she would be unable to effectively communicate the necessary inform ation, especially in an emergency situation, due to the language and communication deficits. She als o presents with severe oral dysphagia and mild pharyngeal dysphagia putting her and significant risk for aspiration with resulting pneumonia due to her COPD. Ms. Rao requires supervision for safe chew ing and swallowing practices at this time. She is also on a modified diet of pureed food to help acc ommodate. If she were to return home by herself at this point, she would be a significant safety ris k for choking, aspiration, pneumonia, and malnutrition. Due to her impaired safety awareness, impuls ivity, and impaired dynamic balance, Ms. Rao is unable to safely perform self-care and ADL activiti es in her home environment independently. She is at high risk for falls or other bodily injuries if tasked with cooking and cleaning activities, which she is responsible for in her home environment. At this point, Ms. Rao would most directly benefit from a minimum of aggressive 3 hours of daily ther apy split between speech therapy,occupational therapy, and physical therapy in the acute inpatient re hab setting. Discharging home with home health or outpatient therapy services would not provide Ms. Rao with enough services for what her immediate needs are in order to ensure patient safety and [facility] Ms. Rao to return toward her baseline function. She currently presents as medically stable wit h relatively stable lab work. She is in need of 24 hour nursing, doctor supervision and oversight while receiving active and ongoing intensive Speech, OT, and PT services. Ms. Rao is reasonably ex pected to participate in a minimum of 3 hours of therapy a day/15 hours per week and receive care wit h intensive interdisciplinary approach. COVID-19 screening performed; spoke with patient in person. S he denies new onset of fever, cough,difficulty breathing, sore throat, body aches and non-allergy juliana al congestion in the past 24 hours. She denies travel outside of [place] in the past 14 days. She lemuel es any contact with someone who has a confirmed diagnosis of or is under investigation for COVID-19 i n the past14 days. Ms. Rao tested negative for COVID- 19 on 06/25.HOSPITAL COURSE: DIET - LIQUID TEXTURE: On 06/28/2021 Pt was upgraded to Regular Diet - Liquid Texture. DIET - SOLID TEXTURE: On 06/28/2021 Pt was upgraded to Regular Diet - Solid Texture. DIET TYPE: On 06/28/2021 Pt was upgraded to Regular Diet Type. SWALLOWING: On 06/28/2021 the following precautions were added for the patient: Swallowing - pt requires supervis ion and is on a modified diet of pureed during meal time for safe swallowing. On 06/29/2021 the following precautions were added for the patient: Swallowing - pt requires supervi joshua and is on a modified diet of pureed during meal time for safe swallowing. On 07/01/2021 the following precautions were removed for the patient: Swallowing - pt requires super vision and is on a modified diet of pureed during meal time for safe swallowing. On 07/02/2021 the following precautions were added for the patient: Swallowing - pt requires supervi joshua and is on a modified diet of pureed during meal time for safe swallowing. The following precautions were removed for the patient: Swallowing - pt requires supervision and is o n a modified diet of pureed during meal time for safe swallowing, and Swallowing - pt requires super vision and is on a modified diet of pureed during meal time for safe swallowing. On 06/29/2021 the following precautions were added for the patient: Weight Bearing Precaution - WBAT right LE. On 07/01/2021 the following precautions were removed for the patient: Weight Bearing Precaution - WB AT right LE. The following precautions were added for the patient: Weight Bearing Precaution - WBAT right LE. On 07/02/2021 the following precautions were removed for the patient: Weight Bearing Precaution - WBA T right LE. The following precautions were added for the patient: Weight Bearing Precaution - WBAT right LE. TUBE FEED: On 06/28/2021 Pt was changed to N/A Tube Feed. WEIGHT BEARING PRECAUTION: DISCHARGE PHYSICAL EXAM - Gen Alert and awake Lying in bed No apparent distress Oriented to: person, time, and place - Skin No breakdown Normacephalic - Eyes No abnormalities - ENMT No abnormalities - Neck No abnormalities - CVS RRR - Chest mild decrease in breath sounds - Resp No wheezing - Abd Soft - GI Non distended Deferred - No abnormalities - Ext Mild bilateral lower extremity edema. - MSK 3/5 right facial weakness 4+/5 weakness in right upper and lower extremities. - Neuro 3/5 right facial weakness 4+/5 weakness in right upper and lower extremities, dysarthria, dysphagia - Psych Mild depression. FUNCTIONAL STATUS: - Self-Care A. Eating 7-Ind B. Grooming 7-Ind C. Bathing 6-Jarrett D. Dressing - Upper 7-Ind E. Dressing - Lower 6-Jarrett F. Toileting 7-Ind - Sphincter Control G. Bladder control 7-Ind H. Bowel control 7-Ind - Transfers Control I. Bed/Chair/Wheelchair 6-Jarrett J. Toilet 6-Jarrett K. Tub/Shower 6-Jarrett - Locomotion L. Walk/Wheelchair (B) 6-Jarrett M. Stairs 6-Jarrett - Communication N. Comprehension (B) 6-Jarrett O. Expression (B) 6-Jarrett - Social Cognition P. Social Interaction 7-Ind Q. Problem Solving 7-Ind R. Memory 7-Ind - Endurance Good - Balance Good - Safety Awareness Good QI SCORES: - Self-Care A. Eating 04-Supervision or touching assistance B. Oral hygiene 03-Partial/moderate assistance C. Toileting hygiene 03-Partial/moderate assistance E. Shower/bathe self 04-Supervision or touching assistance F. Upper body dressing 04-Supervision or touching assistance G. Lower body dressing 03-Partial/moderate assistance H. Putting on/taking off footwear 03-Partial/moderate assistance - Mobility A. Roll left and right 06-Independent B. Sit to lying 06-Independent C. Lying to sitting on side of bed 06-Independent D. Sit to stand 04-Supervision or touching assistance E. Chair/rsk-jj-hoaxx transfer 04-Supervision or touching assistance F. Toilet transfer 04-Supervision or touching assistance G. Car transfer 10-Not attempted due to environmental limitations I. Walk 10 feet 04-Supervision or touching assistance J. Walk 50 feet with two turns 04-Supervision or touching assistance K. Walk 150 feet 04-Supervision or touching assistance L. Walking 10 feet on uneven surfaces 10-Not attempted due to environmental limitations M. 1 step (curb) 10-Not attempted due to environmental limitations N. 4 steps 10-Not attempted due to environmental limitations O. 12 steps 10-Not attempted due to environmental limitations P. Picking up object 03-Partial/moderate assistance R. Wheel 50 feet with two turns 09-Not applicable S. Wheel 150 feet 09-Not applicable - Bladder and Bowel Bladder continence 0-Always continent Bowel continence 0-Always continent - Endurance Good - Balance Fair - Safety Awareness Poor DISCHARGE INSTRUCTIONS: - N/A Aspirin 81 mg and Plavix 75 mg daily. DISCHARGE PLAN, FOLLOW UP CARE PROVISIONS: - Estimated Length of Stay (days) 17. - Consensus on plan Discharge plan has been discussed with primary caregiver. Patient/Family is in agreement with the krystian n. Primary caregiver is in agreement with the plan. - Patient/Family Goals Return home independently. - Planned Living Setting Upon Discharge Home, to live alone. Primary caregiver: Pt self. SIGNATURE PANEL: (CDT)
--- NOTE | 2021-07-14 13:32 | DS ---
Date of Discharge: 07/08/2021 Disposition: Discharged to go home. Physical Examination: HEENT: Unremarkable. Lungs: Clear to auscultation. Heart: Sounds normal. Abdomen: Soft. Bowel sounds normal. No guarding, rigidity, tenderness, or distention. Extremities: No edema. Neuro: No focal neurological deficit. The patient does have some expressive aphasia, but she is imp roving very well. Now, she is able to speak sentences. Sometimes speech is still difficult to under stand and some words are more clear than others. Discharge Medications And Instructions: Stop amlodipine. Continue to take following medications as you were taking prior to this admission; 1.ProAir inhaler 2 puffs by mouth 4 times a day as needed for shortness of breath. 2.Atorvastatin 80 mg 1 tablet by mouth daily at bedtime. 3.Cetirizine 10 mg, take 1 tablet by mouth daily. 4.Trelegy inhaler take, 1 puff by mouth daily, rinse mouth with water after using this inhaler. 5.Flonase nasal spray, take 1 spray in each nostril 2 times a day as needed for allergies. 6.Levothyroxine 100 mcg, take 1 tablet by mouth daily. 7.Lisinopril 20 mg, take 1 tablet by mouth daily each morning. 8.Montelukast 10 mg, take 1 tablet by mouth daily. 9.Omeprazole 40 mg, take 1 tablet by mouth daily. Take following new medications and prescription was sent to pharmacy; 1.Clopidogrel 75 mg, take 1 tablet by mouth daily with food. 2.Folic acid 1 mg, take 1 tablet by mouth daily. 3.Trazodone 50 mg, take half a tablet by mouth daily at bedtime. Take the following vjlk-woe-mgydwwd medications; 1.Aspirin 81 mg, take 1 tablet by mouth daily with food. 2.Nicotine patch 7 mg per day, apply 1 patch to upper arm daily for 2 to 3 weeks. Follow up at office on 07/15/2021. Final Diagnoses: 1.Stroke. 2.Cerebral aneurysm. 3.Hypertension. 4.Hyperlipidemia. 5.Bilateral carotid artery stenosis. 6.Chronic obstructive pulmonary disease. Hospital Course: This is a 70-year-old very pleasant female patient, admitted to rehab floor from [facility]. Please see dictated H and P and discharge summary from medical floor for more details. The patient came in with stroke symptoms with expressive aphasia, received tPA, and subsequently was started on anti-platelet therapy and was brought to rehab in stable condition where she continued to receive physical therapy, occupational therapy, and speech therapy. Her medications were continued, overall condition remained stable. Initially, she was not getting any antihypertensive medications. Subsequently, we started her on lisinopril. At home, she was taking amlodipine, but she does not n eed to take it at this point on basis of her blood pressure readings. In the future if she needs to restart it, we will consider so on outpatient basis. She was counseled in detail to not to smoke any more and she is very motivated not to smoke. Nicotine patch 14 mg per day was started while on the r ab floor and will continue on outpatient basis as per instruction. Her speech has improved over a period of time and today she was discharged to go home in stable condition. On outpatient basis, we will have her continue to follow with a neurologist for this aneurysm. DOLORES/MODL Voice ID: [id number] Report ID: [id number]
== END 2021-07-08 12:15 | disposition home or self-care (01) | DRG 57 ==
LOC: 5TH 18:45
PROVIDERS: ADMIT Internal Medicine; ATTEND Internal Medicine
DX: I69.320 Aphasia following cerebral infarction (principal); I69.322 Dysarthria following cerebral infarction; I69.391 Dysphagia following cerebral infarction; I67.1 Cerebral aneurysm, nonruptured; I10 Essential (primary) hypertension; E78.5 Hyperlipidemia, unspecified; I65.23 Occlusion and stenosis of bilateral carotid arteries; J44.9 Chronic obstructive pulmonary disease, unspecified; R13.12 Dysphagia, oropharyngeal phase; G47.00 Insomnia, unspecified; D64.9 Anemia, unspecified; Z20.822 Contact with and (suspected) exposure to COVID-19
CPT/HCPCS: 36415; 80048; 81003; 81015; 82040; 83735; 84134; 85025; 87086; 87088; 92507; 92523; 97110; 97112; 97116; 97161; 97530; J1650; U0003

== ENCOUNTER 2021-11-20 21:47 | Observation (INO) | payer BC, OTHER ==
--- OUTSIDE RECORDS SUMMARY | 2021-11-20 21:49 | XMS REPORT | Continuity of Care Document ---
:1950 Author Organization [facility] t Address [address] [place] [address] Care Team Providers Name Role Phone Asked, No Pcp Primary Care Physician Unavailable Elli MARCELINO, Soren Peng Attending Clinician Iveth MARCELINO, Mike Love Attending Clinician Yosef MARCELINO, Jony Moct[place]uma Attending Clinician Ishan MARCELINO, Dakota Peng Attending Clinician Payers Payer Name Policy Type Policy Number Effective Date Expiration Date S ource Problems This patient has no known problems. Allergies, Adverse Reactions, Alerts Allergy Allergy Status Severity Reaction(s) Onset Inactive Treating Comm ents Source Name Type Date Date Clinician Penicill Propensi Active Rash Method i ins ty to 10-25 adverse 00:00: Hospita reaction 00 l s to drug Social History Social Habit Start Date Stop Date Quantity Comments Source History of tobacco Smokes tobacco [facility] use daily Hospital Alcohol intake 2021-10-25 2021-10-25 Current drinker [facility] 00:00:00 00:00:00 of alcohol Hospital (finding) Cigarettes smoked 2021-10-24 2021-10-24 [facility] current (pack per 00:00:00 00:00:00 Hospita l day) - Reported Sex Assigned At [birth year] Religious 00:00:00 00:00:00 Hospital Smoking Status Start Date Stop Date Source Smokes tobacco daily 2021-10-24 00:00:00 [facility] Hospital Medications Ordered Filled Start Stop Current Ordering Indication Dosage Frequency Signature Comments Components Source Medication Medication Date Date Medication? Clinician (SIG) Name Name aspirin 0 Yes 81mg QD Take 1 [facility] (ECOTRIN) 11-01 tablet (81 st 81 MG 13:05: mg total) Hospita enteric 56 by mouth l coated daily. tablet clopidogreL 0 Yes 75mg QD Take 1 Meth azael (PLAVIX) 75 11-01 tablet (75 st mg tablet 13:05: mg total) Hos terry 56 by mouth l daily. atorvastati 0 Yes 80mg QD Take 1 Meth azael n (LIPITOR) 11-01 tablet (80 st 80 MG 13:05: mg total) Hospita tablet 56 by mouth l daily. nicotine Yes 1{patch Q24H Place 1 Met hodi (NICODERM 11-01 } patch on st CQ) 14 13:05: the skin Hospita mg/24 hr 56 daily. l montelukast Yes 10mg QD Take 1 Meth azael (SINGULAIR) 11-01 tablet (10 st 10 mg 13:05: mg total) Hospita tablet 56 by mouth l nightly. levothyroxi Yes 100ug QD Take 1 Met hodi ne 11-[address] (SYNTHROID) 13:05: (100 mcg Ho spita 100 mcg 56 total) by l tablet mouth daily. lisinopriL Yes 20mg QD Take 1 [facility] (PRINIVIL) 11-01 tablet (20 st 20 mg 13:05: mg total) Hospita tablet 56 by mouth l daily. omeprazole 0 Yes 40mg QD Take 1 [facility] (PriLOSEC) 11-[address] 40 MG 13:05: (40 mg Hospita capsule 56 total) by l mouth daily. folic acid 0 Yes 1mg QD Take 1 [facility] (FOLVITE) 1 -26 tablet (1 st MG tablet 07:57: mg total) Hos terry 24 by mouth l daily. cetirizine 0 Yes 10mg QD Take 1 [facility] (ZyrTEC) 10 -26 tablet (10 st MG tablet 07:57: mg total) Hos terry 24 by mouth l daily. traZODone 2021-0 Yes 50mg QD Take 1 Method i (DESYREL) -26 tablet (50 st 50 MG 07:57: mg total) Hospita tablet 24 by mouth l nightly. Vital Signs Vital Name Observation Time Observation Value Comments Source Heart rate 2021-10-25 21:30:00 77 /min [facility] Oxygen saturation in 2021-10-25 21:30:00 98 /min [facility] Arterial blood by Pulse oximetry Systolic blood 2021-10-25 21:15:00 154 mm[Hg] [facility] pressure Diastolic blood 2021-10-25 21:15:00 79 mm[Hg] [facility] pressure Respiratory rate 2021-10-25 19:00:00 18 /min [facility] Body temperature 2021-10-25 18:35:00 36.67 Trini [facility] Body height 2021-10-25 13:03:00 162.6 cm [facility] Body weight 2021-10-25 13:03:00 63.504 kg [facility] BMI 2021-10-25 13:03:00 24.03 kg/m2 [facility] Procedures Procedure Date / Time Performed Performing Clinician Sour e IR ANGIOGRAM CEREBRAL 2021-10-25 17:33:39 [facility] BILATERAL US GUIDED VASCULAR 2021-10-25 17:33:[address] [facility] ACCESS IR 3D RECON SLICES 2021-10-25 17:33:[address] [facility] SNAPSHOTS RDMPS NH AN ELECTIVE 2021-10-25 16:31:00 [facility] [place] [facility] SUPRAGLOTTIC AIRWAY CT HEAD EXTERNAL STUDY 2021-06-26 22:55:00 [facility] HEAD EXTERNAL STUDY 2021-06-26 17:03:00 [facility] HEAD EXTERNAL STUDY 2021-06-26 16:26:00 [facility] HEAD EXTERNAL STUDY 2021-06-26 16:14:00 [facility] US NON VASCULAR EXTERNAL 2021-06-26 05:30:00 [facility] STUDY CT HEAD EXTERNAL STUDY 2021-06-25 22:46:[address] [facility] [address] NECK EXTERNAL STUDY 2021-06-25 22:46:[address] [facility] [address] HEAD EXTERNAL STUDY 2021-06-25 22:42:00 [facility] Plan of Care Planned Activity Planned Date Details Comments Source Future Scheduled 2021-11-18 HEPATITIS B VACCINES [facility] Test 10:48:46 (1 of 3 - 3-dose series) [code = HEPATITIS B VACCINES (1 of 3 - 3-dose series)] Future Scheduled 2021-11-18 65+ [facility] 10:48:46 VACCINE (1 - PCV) [code = 65+ PNEUMOCOCCAL VACCINE (1 - PCV)] Future Scheduled 2021-11-[address] [facility] Test 10:48:46 (procedure) [code = 960304454] Future Scheduled 2021-11-18 BREAST CANCER [facility] Test 10:48:46 SCREENING [code = BREAST CANCER SCREENING] Future Scheduled 2021-11-[address] [facility] Test 10:48:46 [code = COLONOSCOPY SCREENING] Future Scheduled 2021-11-18 SHINGLES VACCINES (1 Met [facility] Test 10:48:46 of 2) [code = SHINGLES VACCINES (1 of 2)] Future Scheduled 2021-11-18 INFLUENZA VACCINE [facility] Test 10:48:46 [code = INFLUENZA VACCINE] Future Scheduled 2021-11-18 COVID-19 VACCINE (4 - [facility] Test 10:48:46 Booster for Moderna series) [code = COVID-19 VACCINE (4 - Booster for Moderna series)] Encounters Start End Encounter Admission Attending Care Care Encounter Source Date/Time Date/Time Type Type Clinicians Facility Department ID 2021-11-08 2021-11-08 Transcribe Elli, 1.2.840.1 [id number] [facility] 00:00:00 00:00:00 Orders Soren Peng [id number] 981 s t 3.430.2.7 Hospit a .3.478549 l .8 2021-11-01 2021-11-01 [facility] Iveth 1.2.840.1 [id number] [facility] 23:59:00 23:59:00 Encounter Mike Love [id number] 3.430.2.7 Hospit a .3.743468 l .8 2021-11-01 2021-11-01 [id number] [place] 00:00:00 00:00:[address] MIKE [address] 2021-10-25 2021-10-25 [facility] [place], 1.2.840.1 [id number] Method[facility] 10:22:52 23:59:00 Encounter Jony [id number] Jose Elias 3.430.2.7 Hospit a .3.639378 l .8 2021-10-25 2021-10-25 Anesthesia [place], 1.2.840.1 [id number] [facility] 11:16:00 12:33:00 Event Dakota YobaniBoyd 91100.1.[address] 3.430.2.7 Hospit a .3.235993 l .8 2021-10-25 2021-10-25 [facility], 1.2.840.1 [id number] Methodi 10:21:38 10:21:38 Encounter Jony [id number] Jose Elias 3.430.2.7 Hospit a .3.375839 l .8 2021-10-25 2021-10-25 [facility], 1.2.840.1 [id number] [facility] 10:20:43 10:20:43 Encounter Jony 41925.1.[address] Jose Elias 3.430.2.7 Hospit a .3.419177 l .8 2021-10-25 2021-10-25 [facility], 1.2.840.1 [id number] Methodi 10:19:08 10:19:08 Encounter Jony 54343.1.[address] Jose Elias 3.430.2.7 Hospit a .3.590839 l .8 2021-10-25 2021-10-25 [facility], 1.2.840.1 [id number] [facility] 10:18:06 10:18:06 Encounter Jony [address]4618.1.[address] Jose Elias 3.430.2.7 Hospit a .3.270930 l .8 2021-10-25 2021-10-25 [facility], 1.2.840.1 [id number] Methodi 10:17:23 10:17:23 Encounter Jony 92358.1.[address] Jose Elias 3.430.2.7 Hospit a .3.798708 l .8 2021-10-25 2021-10-25 [facility] Doan, 1.2.840.1 [id number] Methodi 10:16:37 10:16:37 Encounter Jony [id number] Jose Elias 3.430.2.7 Hospit a .3.025711 l .8 2021-10-25 2021-10-25 [facility] Doan, 1.2.840.1 [id number] Methodi 10:15:53 10:15:53 Encounter Jony [id number] Jose Elias 3.430.2.7 Hospit a .3.461914 l .8 2021-10-25 2021-10-25 [facility], 1.2.840.1 [id number] Methodi 06:10:39 10:14:00 Encounter Jony [id number] Jose Elias 3.430.2.7 Hospit a .3.336272 l .8 2021-10-25 2021-10-25 Outpatient DOAN, [facility] [id number] 126 [place] 00:00:00 00:00:00 JONY [address] 2021-10-25 2021-10-25 [facility] [id number] 126 [place] 00:00:00 00:00:00 JONY [address] 2021-10-25 2021-10-25 Travel 1.2.840.1 [id number] [facility] 00:00:00 00:00:[address] 3.430.2.7 0.2.7.3.698 Ho spita .3.830419 084.8 l .8 2021-10-25 2021-10-25 Outpatient DOAN, [facility] [id number] [place] 00:00:00 00:00:00 JONY 140 Method i 2021-10-25 2021-10-25 Outpatient DOAN, [facility] [id number] [place] 00:00:00 00:00:00 JONY 358 Method i 2021-10-25 2021-10-25 Outpatient DOAN, [facility] [id number] [place] 00:00:00 00:00:00 JONY 288 Method i 2021-10-25 2021-10-25 Outpatient DOAN, [facility] [id number] 126 [place] 00:00:00 00:00:00 JONY 208 Method i 2021-10-25 2021-10-25 Outpatient DOAN, [facility] [id number] 126 [place] 00:00:00 00:00:00 JONY 320 Method i 2021-10-25 2021-10-25 Outpatient DOAN, [facility] [id number] 126 [place] 00:00:00 00:00:00 JONY 464 Method i 2021-10-25 2021-10-25 Outpatient DOAN, [facility] [id number] 126 [place] 00:00:00 00:00:00 JONY 591 Method i 2021-09-09 2021-09-09 Transcribe Yosef, 1.2.840.1 [id number] Methodi 00:00:00 00:00:00 Orders Jony [id number] 713 [facility]430[facility]2.7 [facility] .8 Results This patient has no known results.
--- NOTE | 2021-11-20 22:24 | RAD REPORT ---
EXAM DESCRIPTION: RAD - Chest Single View - 11/20/2021 10:04 pm CLINICAL HISTORY: syncope Chest pain. COMPARISON: Chest Single View dated 06/25/2021; Chest Pa And Lat (2 Views) dated 02/14/2021; Chest Pa And Lat (2 Views) dated 03/10/2017 FINDINGS: Portable technique limits examination quality. The lungs are mildly emphysematous but grossly clear. The heart is normal in size. No displaced fract ures. IMPRESSION: No acute intrathoracic process suspected. COPD.
[2021-11-20 22:32] LABS: Lymphocytes % 35.3 % (15.3-44.8); MPV 7.1 fL (7.6-11.3); RBC Red Blood Cell Count 3.72 M/uL (3.86-4.86)
[2021-11-20 22:41] LABS: Protime INR 0.93
[2021-11-20 22:59] LABS: Troponin High Sensitivity 6.7 pg/mL (<58.9)
[2021-11-20 23:00] LABS: Magnesium 1.9 mg/dL (1.8-2.4); Potassium 3.7 mmol/L (3.5-5.1)
--- NOTE | 2021-11-20 23:02 | RAD REPORT ---
EXAM DESCRIPTION: CT - Head Brain Wo Cont - 11/20/2021 10:45 pm CLINICAL HISTORY: syncope, hx of aneurysm and cva Headache, drowsiness, CVA symptomology COMPARISON: Head Brain Wo Cont dated 06/26/2021; Head angio dated 06/25/2021 TECHNIQUE: All CT scans are performed using dose optimization technique as appropriate and may inclu de automated exposure control or mA/KV adjustment according to patient size. FINDINGS: No intracranial hemorrhage, hydrocephalus or extra-axial fluid collection.Mild generalized brain atrophy. Mild gliosis left frontal lobe laterally likely related to old infarct.No areas of br ain edema or evidence of midline shift. The paranasal sinuses and mastoids are clear. The calvarium is intact. IMPRESSION: No acute intracranial abnormality.
--- NOTE | 2021-11-20 23:12 | ER ---
Nurse's Notes [facility] Name: Mary Watts Age: 71 yrs Sex: Female : 1950 Arrival Date: 11/20/2021 Time: 21:51 Bed 4 Private MD: Diagnosis: Syncope;Essential (primary) hypertension Presentation: 11/20 21:51 Chief complaint: Patient's son or daughter states: Patient and daughter arrived in ld1 ambulance bay. Pt daughter reports finding the patient in a swimming pool face down - blue in face when found. EMS toned out to home, pt was not transported to ER via ambulance. Upon arrival to ER pt SpO2 99% RA. Coronavirus screen: At this time, the client does not indicate any symptoms associated with coronavirus-19. Ebola Screen: No symptoms or risks identified at this time. Initial Sepsis Screen: Does the patient meet any 2 criteria? No. Patient's initial sepsis screen is negative. Does the patient have a suspected source of infection? No. Patient's initial sepsis screen is negative. Risk Assessment: Do you want to hurt yourself or someone else? Patient reports no desire to harm self or others. Onset of symptoms was November 20, 2021. 21:51 Method Of Arrival: Ambulatory ld1 21:51 Acuity: GROVER 2 ld1 Triage Assessment: 21:54 General: Appears in no apparent distress. comfortable, Behavior is calm, cooperative, ld1 appropriate for age. Pain: Denies pain. EENT: No signs and/or symptoms were reported regarding the EENT system. Neuro: Level of Consciousness is awake, alert, obeys commands, Oriented to person, place, time, situation. Cardiovascular: Capillary refill < 3 seconds Patient's skin is warm and dry. Rhythm is sinus rhythm. Respiratory: Airway is patent Respiratory effort is even, unlabored. GI: Abdomen is flat, non-distended. : No signs and/or symptoms were reported regarding the genitourinary system. Derm: No signs and/or symptoms reported regarding the dermatologic system. Musculoskeletal: No signs and/or symptoms reported regarding the musculoskeletal system. Historical: - Allergies: 21:54 PENICILLINS; ld1 - Home Meds: 21:54 Plavix 75 mg Oral tab 1 tab once daily [Active]; aspirin 81 mg Oral cap 1 cap once ld1 daily [Active]; - PMHx: 21:54 Hypercholesterolemia; Hypertensive disorder; Hypothyroidism; Aneurysm; ld1 - PSHx: 21:54 Total abdominal hysterectomy; ld1 - Immunization history:: Adult Immunizations up to date, Client reports receiving the 2nd dose of the Covid vaccine. - Social history:: Smoking status: Patient denies any tobacco usage or history of. Patient/guardian denies using alcohol. Screenin:00 Abuse screen: Denies threats or abuse. Nutritional screening: No deficits noted. jb4 Tuberculosis screening: No symptoms or risk factors identified. Fall Risk IV access (20 points). Gait- Impaired (20 pts.). Mental Status- Overestimates/Forgets Limitations (15 pts.). Total Hallman Fall Scale indicates High Risk Score (45 or more points). Fall prevention measures have been instituted. Side Rails Up X 2 Placed Close to Nursing Station Frequent Obs/Assessments Occuring Family Present and informed to notify staff if the need to leave the bedside As available patient and family educated on Fall Prevention Program and Strategies. Assessment: 22:00 General: Appears in no apparent distress. comfortable, Behavior is calm, cooperative, jb4 appropriate for age, Smells of alcohol. Pain: Denies pain. Neuro: Level of Consciousness is awake, alert, obeys commands, Oriented to person, place, time, situation. Cardiovascular: Patient's skin is warm and dry. Respiratory: Airway is patent Respiratory effort is even, unlabored, Respiratory pattern is regular, symmetrical, Breath sounds are clear bilaterally. GI: No signs and/or symptoms were reported involving the gastrointestinal system. : No signs and/or symptoms were reported regarding the genitourinary system. EENT: No signs and/or symptoms were reported regarding the EENT system. Derm: Skin is intact, Skin is pink, warm \T\ dry. Musculoskeletal: Circulation, motion, and sensation intact. Range of motion: intact in all extremities. 23:00 Reassessment: Patient appears in no apparent distress at this time. Patient and/or jb4 family updated on plan of care and expected duration. Pain level reassessed. Patient is alert, oriented x 3, equal unlabored respirations, skin warm/dry/pink. 23:43 General: [phone] Padron-Daughter. tw5 11/21 01:00 Reassessment: Patient appears in no apparent distress at this time. Patient and/or jb4 family updated on plan of care and expected duration. Pain level reassessed. Patient is alert, oriented x 3, equal unlabored respirations, skin warm/dry/pink. Vital Signs: 11/20 21:51 BP 160 / 80; Pulse 64; Resp 18; Temp 98.7(O); Pulse Ox 100% on R/A; Pain 0/10; ld1 11/21 01:28 BP 120 / 82; Pulse 61; Resp 16; Pulse Ox 100% on R/A; jb4 ED Course: 11/20 21:51 Patient arrived in ED. tw5 21:51 Tee Sullivan DO is Attending Physician. ms3 21:53 Triage completed. ld1 21:53 Inserted saline lock: 18 gauge in right forearm, using aseptic technique. Blood jb4 collected. 21:54 Arm band placed on right wrist. ld1 21:59 Dre Rodriguez, RN is Primary Nurse. jb4 22:00 Patient has correct armband on for positive identification. Placed in gown. Bed in low jb4 position. Call light in reach. Side rails up X 1. 22:06 XRAY Chest (1 view) In Process Unspecified. EDMS 22:47 CT Head Brain wo Cont In Process Unspecified. EDMS 23:10 Cezar Monge MD is Hospitalizing Provider. ms3 11/21 00:14 SARS-COV-2 Antigen Rapid Sent. tw5 01:33 No provider procedures requiring assistance completed. Patient admitted, IV remains in jb4 place. Administered Medications: No medications were administered Medication: 01:35 VIS not applicable for this client. jb4 Outcome: 11/20 23:12 Decision to Hospitalize by Provider. ms3 11/21 01:34 Admitted to Tele accompanied by tech, via wheelchair, room 428, with chart. jb4 Condition: stable Discharge instructions given to patient, family, Instructed on the need for admit, Demonstrated understanding of instructions. 02:04 Patient left the ED. jb4 Signatures: Dispatcher [employer] Dre Grossman, TIFFANY ALLEN jb4 Tee Sullivan DO DO ms3 Lulú Norman RN RN ld1 Marychuy Dunne tw5 Corrections: (The following items were deleted from the chart) 11/20 21:56 21:54 PSHx: None; ld1 ld1
--- NOTE | 2021-11-20 23:13 | EDPHYS ---
Physician Documentation [facility] Name: Mary Watts Age: 71 yrs Sex: Female : 1950 Arrival Date: 11/20/2021 Time: 21:51 Bed 4 Private MD: ED Physician Tee Sullivan HPI: 11/20 23:12 This 71 yrs old Female presents to ER via Ambulatory with complaints of Syncope. ms3 23:12 71-year-old female with past medical history of hypercholesterolemia, hypertension, ms3 hypothyroidism, CVA presents with her daughter status post syncopal episode and falling into her pool. Of note patient states she is intoxicated. Patient denies pain. Patient denies alleviating or inciting factors. Patient denies chest pain, shortness of breath, nausea, vomiting.. Historical: - Allergies: 21:54 PENICILLINS; ld1 - Home Meds: 21:54 Plavix 75 mg Oral tab 1 tab once daily [Active]; aspirin 81 mg Oral cap 1 cap once ld1 daily [Active]; - PMHx: 21:54 Hypercholesterolemia; Hypertensive disorder; Hypothyroidism; Aneurysm; ld1 - PSHx: 21:54 Total abdominal hysterectomy; ld1 - Immunization history:: Adult Immunizations up to date, Client reports receiving the 2nd dose of the Covid vaccine. - Social history:: Smoking status: Patient denies any tobacco usage or history of. Patient/guardian denies using alcohol. ROS: 23:12 Constitutional: Negative for fever, and chills. Neck: Negative for injury, pain, and ms3 swelling, Cardiovascular: Negative for chest pain, and palpitations. Respiratory: Negative for shortness of breath, cough, wheezing, and pleuritic chest pain, Abdomen/GI: Negative for abdominal pain, nausea, vomiting, diarrhea, and constipation, MS/Extremity: Negative for injury and deformity, Skin: Negative for injury, rash, and discoloration. 23:12 Neuro: Positive for syncope. 23:12 All other systems are negative. Exam: 21:52 ECG was reviewed by the Attending Physician. ms3 23:12 Constitutional: This is a well developed, well nourished patient who is awake, alert, ms3 and in no acute distress. Head/Face: Normocephalic, atraumatic. ENT: Nares patent. No nasal discharge, no septal abnormalities noted. Tympanic membranes are normal and external auditory canals are clear. Oropharynx with no redness, swelling, or masses, exudates, or evidence of obstruction, uvula midline. Mucous membranes moist. Neck: Trachea midline, no cervical lymphadenopathy. Supple, full range of motion without nuchal rigidity, or vertebral point tenderness. No Meningismus. Chest/axilla: Normal chest wall appearance and motion. Nontender with no deformity. Cardiovascular: Regular rate and rhythm with a normal S1 and S2. No gallops, murmurs, or rubs. Normal PMI, no JVD. No pulse deficits. Respiratory: Lungs have equal breath sounds bilaterally, clear to auscultation and percussion. No rales, rhonchi or wheezes noted. No increased work of breathing, no retractions or nasal flaring. Abdomen/GI: Soft, non-tender, with normal bowel sounds. No distension or tympany. No guarding or rebound. No evidence of tenderness throughout. Back: No spinal tenderness. No costovertebral tenderness. Full range of motion. Skin: Warm, dry with normal turgor. Normal color with no rashes, no lesions, and no evidence of cellulitis. Neuro: Awake and alert, GCS 15, oriented to person, place, time, and situation. Cranial nerves II-XII grossly intact. Motor strength 5/5 in all extremities. Sensory grossly intact. Cerebellar exam normal. Normal gait. Psych: Awake, alert, with orientation to person, place and time. Behavior, mood, and affect are within normal limits. Vital Signs: 21:51 BP 160 / 80; Pulse 64; Resp 18; Temp 98.7(O); Pulse Ox 100% on R/A; Pain 0/10; ld1 11/21 01:28 BP 120 / 82; Pulse 61; Resp 16; Pulse Ox 100% on R/A; jb4 MDM: 11/20 21:51 Patient medically screened. ms3 23:12 Data reviewed: vital signs, nurses notes, lab test result(s), radiologic studies, and ms3 as a result, I will admit patient. Counseling: I had a detailed discussion with the patient and/or guardian regarding: the historical points, exam findings, and any diagnostic results supporting the discharge/admit diagnosis, lab results, radiology results, the need for outpatient follow up, to return to the emergency department if symptoms worsen or persist or if there are any questions or concerns that arise at home. ED course: Discussed radiographs with patient and her daughter. Will place patient in observation for rib fractures causing patient to be dyspneic as it is painful to take deep breaths.. 11/20 21:53 Order name: Basic Metabolic Panel; Complete Time: 23:05 ms3 11/20 21:53 Order name: CBC with Diff; Complete Time: 23:05 ms3 11/20 21:53 Order name: Magnesium; Complete Time: 23:05 ms3 11/20 21:53 Order name: PT-INR; Complete Time: 23:05 ms3 11/20 21:53 Order name: Troponin HS; Complete Time: 23:05 ms3 11/20 23:17 Order name: SARS-COV-2 Antigen Rapid; Complete Time: 00:56 ms3 11/20 21:53 Order name: XRAY Chest (1 view); Complete Time: 23:05 ms3 11/20 21:53 Order name: EKG; Complete Time: 21:53 ms3 11/20 21:53 Order name: CT Head Brain wo Cont; Complete Time: 23:05 ms3 11/21 01:09 Order name: Heart Healthy EDMS 11/21 01:09 Order name: Basic Metabolic Panel EDMS 11/21 01:09 Order name: Basic Metabolic Panel EDMS 11/21 01:09 Order name: CBC with Automated Diff EDMS 11/21 01:09 Order name: CBC with Automated Diff EDMS 11/20 21:53 Order name: Cardiac monitoring; Complete Time: 21:57 ms3 11/20 21:53 Order name: EKG - Nurse/Tech; Complete Time: 21:57 ms3 11/20 21:53 Order name: IV Saline Lock; Complete Time: 21:59 ms3 11/20 21:53 Order name: Labs collected and sent; Complete Time: 22:00 ms3 11/20 21:53 Order name: O2 Per Protocol; Complete Time: 21:57 ms3 11/20 21:53 Order name: O2 Sat Monitoring; Complete Time: 21:57 ms3 EC:52 Rate is 61 beats/min. Rhythm is regular. QRS [place] is Normal. PA interval is normal. QRS ms3 interval is normal. Clinical impression: Normal ECG. Interpreted by me. Reviewed by me. Administered Medications: No medications were administered Disposition Summary: 11/20/21 23:12 Hospitalization Ordered Hospitalization Status: Observation ms3 Provider: Cezar Monge ms3 Location: Telemetry/MedSurg (observation) ms3 Condition: Stable ms3 Problem: new ms3 Symptoms: are unchanged ms3 Bed/Room Type: Standard ms3 Room Assignment: 428(11/21/21 01:18) eb1 Diagnosis - Syncope ms3 - Essential (primary) hypertension ms3 Forms: - Medication Reconciliation Form ms3 - SBAR form ms3 Signatures: Dispatcher [employer] Stacey Maria RN RN eb1 Tee Sullivan DO DO ms3 Lulú Norman RN RN ld1 Corrections: (The following items were deleted from the chart) 21:56 21:54 PSHx: None; ld1 ld1 11/21 01:18 11/20 23:12 ms3 eb1
[2021-11-21 00:35] LABS: SARS-CoV-2 Antigen Rapid Res Negative (Negative)
[2021-11-21] MEDS ORDERED: ACETAMINOPHEN 500 MG TAB PO PRN (01:00)
[2021-11-21] MEDS ORDERED: ONDANSETRON 4 MG (ODT) TAB PO PRN (01:00)
[2021-11-21 05:55] VITALS: BMI 25.0
[2021-11-21] MEDS ORDERED: MONTELUKAST 10 MG TAB PO SCH (09:00)
[2021-11-21] MEDS ORDERED: FOLIC ACID 1 MG TABLET PO SCH (09:00)
[2021-11-21] MEDS ORDERED: lisinopriL 20 MG TAB PO SCH (09:00)
[2021-11-21] MEDS ORDERED: LEVOTHYROXINE SOD 0.1 MG TAB PO SCH (09:00)
[2021-11-21] MEDS ORDERED: CLOPIDOGREL 75 MG TABLET PO SCH (09:00)
[2021-11-21] MEDS ORDERED: DULERA 100/5 (MOMETASONE/FORMOTEROL) INHALER IH SCH (09:00)
[2021-11-21] MEDS ORDERED: ASPIRIN EC 81 MG TAB PO SCH (09:00)
--- NOTE | 2021-11-21 10:43 | RAD REPORT ---
EXAM DESCRIPTION: US - CP - 11/21/2021 9:21 am CLINICAL HISTORY: syncope Headache drowsiness COMPARISON: MRA Neck W/Wo Cont dated 06/26/2021 TECHNIQUE: Real-time sonographic evaluation of both carotid systems was performed. Doppler interroga tion was performed with waveform tracing bilaterally. FINDINGS: Normal high resistance waveforms are noted in both external carotid arteries. The common c arotid arteries and internal carotid arteries show normal low resistance waveforms. Moderate hard plaquing is present in both carotid bulbs, more significant on the right. Visually, laura nosis of the right bulb estimated at 50-70% based on NASCET criteria. Peak systolic and end diastolic velocity values and the ICA/CCA ratios are in the non-hemodynamically significant range. Antegrade flow seen in both vertebral arteries. IMPRESSION: Moderate hard plaque is seen in both carotid bulbs, greater on the right. Visually, right carotid bulb stenosis is estimated at 50-70% based on NASCET criteria. No significant peak systolic velocity elevations are present.
--- NOTE | 2021-11-21 13:37 | EKG ---
Test Date: 2021-11-20 Test Time: 21:52:50 Powder Mill Operator: EMY MEASUREMENT RESULTS: Intervals: Rate: 61 TX: 178 QRSD: 102 QT: 450 QTc: 453 [place]: P: 42 TX: 178 QRS: 37 T: 55 INTERPRETIVE STATEMENTS: Normal sinus rhythm Normal ECG Compared to ECG 06/25/2021 18:02:28 Atrial abnormality no longer present ST (T wave) deviation no longer present Electronically Signed On 11-21-21 13:36:26 CDT by Francesco Crowder
--- NOTE | 2021-11-21 19:37 | CON ---
Date of Consultation: 11/21/2021 Reason For Consultation: Syncope. History Of Present Illness: This is a 71-year-old female with past medical history of hypertension, dyslipidemia, brain aneurysm, and stroke. She has dysphagia. She presented to the emergency room af ter a syncopal episode. She claimed that they were having a family time by the pool. She had a few drinks, to be exact 3 drinks of Cognac, which is not unusual for her to do and as per her report jade eric after that, her daughter looked up and found her on the surface of the water face down, but she d id not drown, got her out, brought her into the emergency room. Apparently, face was blue with AMS f ound her and apparently her vital signs in the emergency room were good. The patient is fully alert, awake, oriented x3 at the present time. Does not recall what happened. Denies having any chest amy n or shortness of breath or any palpitations prior to that and the patient cannot remember or recall any other details. Past Medical History: As outlined above in the HPI. Medications: Refer to reconciliation sheet for detailed list. Allergies: PENICILLIN. Past Surgical History: Hysterectomy. Family History: No premature coronary artery disease or cancer. Social History: Drinks socially and does not use any drugs. Review of Systems: All systems reviewed and they were negative except for what mentioned in HPI. Physical Examination: Vital Signs: Temperature is 98.1, pulse 63, breathing at 14, blood pressure 155/83, saturating 97% o n room air. General: Pleasant, elderly female, in no apparent distress. Head and Neck: Pupils are equal, reactive to light. Intact eye movements. No JVD. No cervical lym phadenopathy. Neck is supple. Thyroid is not enlarged. Lungs: Clear to auscultation bilaterally. No rhonchi, wheezing, or crackles. No accessory muscle u se. Heart: Regular rate and rhythm. No extra sounds. Abdomen: Soft, nontender. Bowel sounds positive. No organomegaly. No masses or hernia. No rigidi ty or rebound. Extremities: No clubbing or cyanosis. Intact pulses. Skin: No rash. Neurologic: Alert, awake. No acute focal deficits appreciated. Investigations: Troponin is 6.7, creatinine 0.77, hemoglobin is 12, white blood cell count is 8.4, a nd she had a CT head that was negative and she had carotid ultrasound showed moderate plaque ranging between 50% to 70%. Assessment And Recommendations: 1.Syncope, etiology is not clear. Recommend cardiac enzymes to be trended 2 more sets. Echocardiog pankaj was reviewed and echo was normal. She has normal ejection fraction. No valvular disease to expl ain the syncope. Monitor on telemetry and the patient once discharged will need an event monitor and again trend 2 more sets of cardiac enzymes and monitor clinically. 2.Carotid stenosis by ultrasound, which appears to be significant. The patient will need a carotid angiogram, which we will arrange for as an outpatient basis. 3.Brain aneurysm. She had a CT scan of the brain. There was no brain bleed. The patient is to [facility] in [place] with Neurosurgery for coiling, which is already set to be done in November. /MODL Voice ID: [id number] Report ID: [id number]
[2021-11-21] MEDS ORDERED: levETIRAcetam 500 MG TAB PO SCH (21:00)
[2021-11-21] MEDS ORDERED: TRAZODONE 50 MG TABLET PO SCH (21:00)
[2021-11-21] MEDS ORDERED: AMLODIPINE 5 MG TAB PO SCH (21:00)
[2021-11-21] MEDS ORDERED: FAMOTIDINE 20 MG TAB PO SCH (21:00)
[2021-11-21] MEDS ORDERED: ATORVASTATIN 80 MG TAB PO SCH (21:00)
--- NOTE | 2021-11-22 00:19 | CON ---
Reason For Consultation: Consultation was called because of syncopal episode. History Of Present Illness: Ms. 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 She was at home earlier in the day, this was actu ally yesterday, when she did a workout and drank 3 alcoholic drinks and while in the pool, her friend witnessed her passing out. The friend said she was face down in the pool, after she was kind of sta nding up in the pool, there was about above waist high water and when the friend pulled her out, her nose and lips appeared purple. After perhaps a minute or so, she regained awareness, did not have an y coughing, did not appear to have any water in her lungs and was confused for a bit. The Emergency Medical Services were contacted, but the patient was not advised to come to the emergency room. She had begun to return towards baseline. She called her primary care physician, Dr. Monge and was advised to come to [facility]. At [facility], she had yet to return to baseline. Her CT scan of the head showed no acute ische paz or hemorrhagic changes and the blood work showed no significant abnormalities and a carotid arter y ultrasound showed moderate hard plaque in both carotid bulbs with right carotid bulb stenosis estim ated at 50%-70%. No significant peak systolic velocity elevations were present. At the time of my e valuation, the patient was at her baseline. No significant abnormalities. She was actually ready to be discharged home. Earlier she had a negative COVID test. Past Medical History: Hypertension, hypothyroidism, and dyslipidemia. Allergies: PENICILLIN. Past Surgical History: Total abdominal hysterectomy. Medications: Plavix 75 mg daily and aspirin 81 mg daily. Review of Systems: She denies any fevers, chills, nausea, vomiting, myalgias, arthralgias, rash, headache, weight change , or psychiatric issues. Physical Examination: Vital Signs: Blood pressure 144/78, pulse 72, respiratory rate 14, temperature 98.0, oxygen saturati on 100% General: Ms. Watts is resting in hospital bed, in no acute distress. HEENT: She is normocephalic, atraumatic. Sclerae anicteric. Oropharynx is pink and moist. Neck: Supple. Chest: Clear. Heart: Regular. Extremities: No clubbing, cyanosis, or edema. Neurologic: She is alert and oriented to situation, place, and person. Follows commands appropriate ly. Cranial nerves 2 through 12 with no focal deficits. On motor, sensory, coordination, and reflex examination, no focal or abnormal findings. Gait: Good stance and stride. Assessment: Ms. Watts is a 71-year-old patient who had a syncopal episode with central nervous syste m aneurysm. Although her friend did not witness tonic-clonic activity, tongue biting or loss of carla l and bladder control, the overwhelming chance of this event being a seizure is such that she should likely be put on antiepileptic medication. She did have an EEG done earlier today. The study is act ually normal. No focal findings and no epileptiform discharges. The drinking of 3 alcoholic beverag es identified as prior to the event and exercising and being in a pool perhaps were contri buting factors to the possible seizure. Plan: 1.Keppra, titrate over 10 day period from 250 mg at night up to 500 mg twice daily. 2.She may be discharged home. Keep appointment for 4 vessel angiogram in [place] as scheduled for next month. 3.Follow up in Dr. Lazaro's clinic in 4-6 weeks. JENNI/LATA Voice ID: [id number] Report ID: [id number]
--- NOTE | 2021-11-22 07:10 | ECHO ---
HEIGHT: 5 ft 4 in WEIGHT: 146 lb 0 oz DATE OF STUDY: 11/21/[address]: Charlie Monge MD 2-DIMENSIONAL: YES M.MODE: YES DOPPLER: YES COLOR FLOW: YES TDS: NO PORTABLE: YES DEFINITY: NO BUBBLE STUDY: NO DIAGNOSIS: SYNCOPE CARDIAC HISTORY: CATHERIZATION: NO SURGERY: NO PROSTHETIC VALVE: NO PACEMAKER: NO MEASUREMENTS (cm) DIASTOLIC (NORMALS) SYSTOLIC (NORMALS) IVSd 1.2 (0.6-1.2) LA Diam 2.1 (1.9-4.0) LVEF 68% LVIDd 3.7 (3.5-5.7) LVIDs 2.3 (2.0-3.5) %FS 37% LVPWd 1.2 (0.6-1.2) Ao Diam 2.3 (2.0-3.7) 2 DIMENSIONAL ASSESSMENT: RIGHT ATRIUM: NORMAL LEFT ATRIUM: NORMAL RIGHT VENTRICLE: NORMAL LEFT VENTRICLE: NORMAL TRICUSPID VALVE: MILD TRICUSPID REGURGITATION MITRAL VALVE: MITRAL ANNULAR CALCIFICATION/ MILD MITRAL REGURGITATION PULMONIC VALVE: NORMAL AORTIC VALVE: NORMAL PERICARDIAL EFFUSION: NONE AORTIC ROOT: NORMAL LEFT VENTRICULAR WALL MOTION: NORMAL. DOPPLER/COLOR FLOW: SEE BELOW. COMMENTS: NORMAL LEFT VENTRICULAR EJECTION FRACTION 60-65%. NORMAL WALL MOTION. MILD TRICUSPID REGURGITATION. MILD MITRAL REGURGITATION. TECHNOLOGIST: AMANUEL LEVIN
--- NOTE | 2021-11-22 07:20 | EEG ---
CHART: [id number] TEST ID#: [id number] DATE OF STUDY: 11/21/2021 THE EEG WAS RECORDED IN THE EEG LABORATORY ON A 17 CHANNEL MACHINE. ELECTRODES WERE APPLIED IN THE USUAL MANNER USING THE INTERNATIONAL 10-20 SYSTEM. THE WAKING BACKGROUND RHYTHM IN THIS RECORD CONSISTS OF VERY WELL DEVELOPED AND WELL ORGANIZED WAVES OF 9 HZ., MAXIMAL IN THE POSTERIOR READ REGIONS WHICH ATTENUATE NORMALLY WITH EYE OPENING. LOW-VOLTAGE 18-22 HZ ACTIVITY IS EXPRESSED IN THE FRONTAL REGIONS. THERE ARE NO FOCAL OR LATERALIZING FEATURES. NO EPILEPTIFORM ACTIVITY APPEARS. SLEEP DID NOT OCCUR. HYPERVENTILATION WAS NOT PERFORMED. PHOTIC STIMULATION PRODUCED FAIR DRIVING BILATERALLY. IMPRESSION: NORMAL EEG FOR THE AGE OF THE PATIENT IN [place].
[2021-11-22 20:21] VITALS: TEMP 98.7; O2SAT 100
[2021-11-22 20:23] VITALS: BP 120/82
--- NOTE | 2021-11-22 23:43 | SS ---
Date of Discharge: 11/21/2021 Chief Complaint: Passing out. History Of Present Illness: This is a 71-year-old very pleasant female patient, who was with her fam noeim member in her backyard swimming pool and family found her unresponsive. She did not drown. They brought her out of the swimming pool, called EMS, and family noted that her face was blue. By the t heidy EMS arrived, her condition had improved. Her vital signs as checked by EMS was stable, so EMS di d not offer her to bring her to emergency room and left. After EMS left the scene, family contacted me with all this information and they were advised to bring patient to the emergency room. After she was evaluated in the ER, she was admitted to the hospital. When I saw her this morning, she denies any complaints. The patient says that she was in the swimming pool with her family member, and that is the last thing she remembers before losing consciousness. She did not have any symptoms prior to losing consciousness. No chest pain or shortness of breath. No nausea or vomiting. No diarrhea. N o fever or chills. No bleeding. Allergies: TO PENICILLIN. Medications: List reviewed. Review of Systems: DRAPERY SUPERVISOR: As mentioned above. All other systems reviewed and negative. Social History: Prior history of smoking, not at present time. Use of alcohol occasionally, but the patient reports that she had 3 hard liquor drinks yesterday before getting into swimming pool. Past Medical History: Reviewed. Past Surgical History: Reviewed. Family History: Reviewed. Physical Examination: Vital Signs: Height 5 feet 4 inches, weight 146 pounds, temperature 97.6, pulse 70, respiratory rate 15, blood pressure 140/73, oxygen saturation 96%. General: Awake, alert, oriented, not in distress. HEENT: Head atraumatic, normocephalic. Conjunctivae nonerythematous. Sclerae white. Mouth, no thr ush or edema noted. Ears/Nose, no mass, lesion, discharge noted. Neck: Supple. No JVD, lymph nodes, bruit, thyromegaly noted. Lungs: Bilateral good equal air entry. Clear to auscultation. No rhonchi. No rales. Heart: Normal heart sounds, no murmur or gallop. Abdomen: Soft, bowel sounds normal. No guarding, rigidity, tenderness, mass, hepatosplenomegaly, dis tention, or bruit noted. Extremities: No leg edema. No calf tenderness. Skin: No rash, ulcer, cellulitis. Lymphatics: No lymph node enlargement in neck, supraclavicular, infraclavicular region. DRAPERY SUPERVISOR: The patient's speech is slightly slurred, but stable compared to previous exam. No focal neuro logical deficits. Power is equal in all the 4 extremities. Sensation intact to touch. No facial as ymmetry. Chest: Unremarkable. External Genitalia: Deferred. Rectal: Deferred. Laboratory Data: White count 8.4, hemoglobin 12, platelets 359. Sodium 139, potassium 3.7, chloride 107, bicarb 22, BUN 14, creatinine 0.77, glucose 110. Troponin 6.7. Chest x-ray: No acute cardiop ulmonary changes. CAT scan of the head: No acute intracranial changes. Hospital Course: After the patient was evaluated in the emergency room, she was admitted to the hosp ital. Overnight, her condition has remained stable. Neurology and Cardiology consultation were requ ested. Dr. Lazaro evaluated her and Dr. Crowder also evaluated her from Neurology and Cardiology se rvices respectively. The patient did not admit to me regarding her alcohol use, but she did admit it to Dr. Lazaro and obviously Dr. Lazaro has suggested not to use any alcohol and I have instructe d her not to use any alcohol also. Her carotid Doppler had shown some bilateral carotid artery steno sis, but no evidence of any hemodynamically significant stenotic lesion. The patient will benefit fr Holter monitor and international controller's office will handle this on an outpatient basis. Dr. Lazaro matthew s recommended empiric treatment with Keppra to start with 250 mg daily at bedtime and about every 3 t o 4 days, increase the dose by adding 250 mg until we reach goal of 500 mg 2 times a day. EEG was do ne today, which was unremarkable. The patient is going to have surgery for cerebral aneurysm in abou t 2 weeks or so and the patient will follow up with Dr. Lazaro as well on an outpatient basis and h opefully Dr. Lazaro will make a decision at what point to discontinue her Keppra on an outpatient b asis. The patient will have follow up with me, neurologist, and international controller on an outpatient basis. Discharge Medications And Instructions: 1.Continue all prior home medications. 2.Keppra 250 mg, take 1 tablet by mouth daily at bedtime. Final Diagnoses: 1.Syncope. 2.Stroke. 3.Hypertension. 4.Hyperlipidemia. 5.Cerebral aneurysm. 6.Chronic obstructive pulmonary disease. DOLORES/MODL Voice ID: [id number] Report ID: [id number]
== END 2021-11-21 18:34 | disposition home or self-care (01) ==
LOC: ER 21:47 → ERHOLD 11-21 01:12 → 4TH 11-21 01:50
PROVIDERS: ADMIT Internal Medicine; ATTEND Internal Medicine
DX: R55 Syncope and collapse (principal); I65.23 Occlusion and stenosis of bilateral carotid arteries; F10.929 Alcohol use, unspecified with intoxication, unspecified; I67.1 Cerebral aneurysm, nonruptured; E78.00 Pure hypercholesterolemia, unspecified; I10 Essential (primary) hypertension; Z86.73 Personal history of transient ischemic attack (TIA), and cerebral infarction without residual deficits; Z88.0 Allergy status to penicillin; Z20.822 Contact with and (suspected) exposure to COVID-19
CPT/HCPCS: 95816; 93005; 93306; 85025; 80048; 36415; 83735; 85610; 84484; 70450; 71045; 93880; 99285; 87811; J3535; G0378 ×2

== ENCOUNTER 2022-01-09 14:20 | Day surgery (SDC) | payer BC, OTHER ==
[2022-01-07 15:11] LABS: Absolute Lymphocytes (CBC) 1.7 K/uL (0.7-4.9); Hematocrit 28.5 % (36.0-45.0); Lymphocytes % 34.9 % (15.3-44.8); MCV 99.9 fL (80-100); MPV 7.7 fL (7.6-11.3); RBC Red Blood Cell Count 2.86 M/uL (3.86-4.86)
[2022-01-07 15:57] LABS: Protime INR 1.01
--- NOTE | 2022-01-09 06:35 | EKG ---
Test Date: 2022-01-07 Test Time: 14:38:24 Zipper Setter: JIMY MEASUREMENT RESULTS: Intervals: Rate: 59 MS: 176 QRSD: 98 QT: 412 QTc: 407 [place]: P: 69 MS: 176 QRS: 65 T: 69 INTERPRETIVE STATEMENTS: Sinus bradycardia Otherwise normal ECG Compared to ECG 11/20/2021 21:52:50 Sinus rhythm no longer present Electronically Signed On 01-09-22 06:30:48 OWNER OPERATOR TANKER TRUCK DRIVER by Pipe George
[2022-01-09] MEDS ORDERED: LIDOCAINE 1% 20 ML MDV ONE (15:52)
[2022-01-09] MEDS ORDERED: HEPA 1000U/500MLS 2,000 UNIT/1,000 ML BAG IV ONE (15:52)
[2022-01-09] MEDS ORDERED: FENTANYL CITR 100 MCG/2 ML ONE (15:53)
[2022-01-09] MEDS ORDERED: MIDAZOLAM HCL 2 MG/2 ML INJ ONE ×2 (15:53→16:25)
[2022-01-09] MEDS ORDERED: ATROPINE SULF 1 MG/10 ML SYR IV ONE (15:54)
[2022-01-09 19:29] VITALS: BP 144/76; O2SAT 100
--- NOTE | 2022-01-09 19:38 | OP ---
Date of Procedure: 01/09/2022 Surgeon: ANNEMARIE HEBERT Procedure Performed: Selective bilateral carotid angiogram. Indication: Known carotid stenosis by Doppler and history of stroke. Access: Right femoral artery 4-Azerbaijani closed with manual pressure. Complications: None. Estimated Blood Loss: Bleeding less than 10 mL. Anesthesia: Total sedation time was 25 minutes, used fentanyl and Versed. Description Of Procedure: After risks, benefits, and alternatives were explained, the patient agreed to procedure and signed informed consent. Patient was brought into the cardiac catheterization labo ratory and prepped and draped in usual sterile fashion. Then, I accessed the right femoral artery us ing micropuncture kit, fluoroscopy and ultrasound guidance and placed 4-Azerbaijani [place] sheath and to ok a 4-Azerbaijani JR4 catheter into the aortic root, engaged the right common carotid artery and took sta ndard views and then engaged left common carotid artery and took standard views and then removed the catheter and sheath. Manual pressure was used for closure with good hemostasis. Findings: 1.The right common carotid was normal, right internal carotid has about 30% to 40% stenosis proximal ly, and the right external carotid appears normal. 2.The left common carotid is normal, the left internal carotid artery has proximal 20% stenosis, and the left external carotid artery is normal. Conclusion: Mild bilateral carotid artery stenosis. Plan: Medical management. /LATA Voice ID: [id number] Report ID: [id number]
== END 2022-01-09 19:30 | disposition home or self-care (01) ==
LOC: CCL 14:20
PROVIDERS: ATTEND Internal Medicine
DX: I65.23 Occlusion and stenosis of bilateral carotid arteries (principal); I10 Essential (primary) hypertension; E78.5 Hyperlipidemia, unspecified; Z86.73 Personal history of transient ischemic attack (TIA), and cerebral infarction without residual deficits; Z87.891 Personal history of nicotine dependence; Z79.02 Long term (current) use of antithrombotics/antiplatelets; Z79.899 Other long term (current) drug therapy; Z88.0 Allergy status to penicillin
CPT/HCPCS: 93005; 85025; 80048; 36415; 85610; 85730; 36215; 36222; 76937; C1893; J2250 ×2; J3010; J1644

== ENCOUNTER 2024-02-29 09:50 | Emergency (ER) | payer OTHER ==
--- NOTE | 2024-02-29 10:09 | RAD REPORT ---
EXAMINATION: ONE VIEW CHEST XR CLINICAL INDICATION: CHEST PAIN TECHNIQUE: Frontal chest projection is submitted. Examination is limited by patient positioning and t echnique. COMPARISON: 11/20/2021 FINDINGS: Mild linear opacity in the right lung base laterally could be atelectasis or an early infiltrate. Blanca gs otherwise clear. The heart is upper limit of normal in size. No displaced fractures identified.
[2024-02-29 10:12] LABS: Absolute Basophils 0.1 K/uL (0-0.5); Absolute Eosinophils 0.1 K/uL (0-0.5); Absolute Lymphocytes (CBC) 1.8 K/uL (0.7-4.9); Absolute Monocytes 0.7 K/uL (0.1-1.3); Absolute Neutrophil 3.1 K/uL (1.8-8.0); Basophils % 1.2 % (0-1.3); Eosinophils % 1.4 % (0-4.4); Hematocrit 42.7 % (36.0-45.0); Hemoglobin 14.4 g/dL (12.0-15.0); Lymphocytes % 31.6 % (15.3-44.8); MCH 31.9 pg (27.0-35.0); MCHC 33.8 g/dL (32.0-36.0); MCV 94.5 fL (80-100); MPV 7.6 fL (7.6-11.3); Monocytes % 12.1 % (3.3-12.3); Neutrophils % 53.7 % (41.7-73.7); Nucleated Red Blood Cells % 0.4 % (0-0); Platelets 301 thou/uL (152-406); RBC Red Blood Cell Count 4.51 M/uL (3.86-4.86)
[2024-02-29 10:13] LABS: PT Prothrombin Time 11.6 SECONDS (9.4-12.5); Protime INR 1.04
[2024-02-29 10:27] LABS: Anion Gap 9.1 mEq/L (5.0-15.0); Potassium 4.1 mEq/L (3.5-5.1); Troponin High Sensitivity 3.4 pg/mL (<58.9)
--- NOTE | 2024-02-29 11:25 | EDPHYS ---
Physician Documentation [facility] Name: Mary Watts Age: 73 yrs Sex: Female : 1950 Arrival Date: 02/29/2024 Time: 09:50 Bed 4 Private MD: ED Physician Anya Eldridge HPI: 02/28 11:25 This 73 yrs old Female presents to ER via Ambulatory with complaints of Chest gb1 Pain. Historical: - Allergies: 09:54 PENICILLINS; ko1 - Home Meds: 09:54 amlodipine 5 mg oral tablet 1 tab 2 times per day for hypertension [Active]; aspirin 81 ko1 mg Oral cap 1 cap once daily [Active]; Trelegy Ellipta 200-62.5-25 mcg inhalation Blister, With Inhalation Device [Active]; pantoprazole 40 mg oral tablet, delayed release (enteric coated) 1 tab 2 times per day [Active]; levothyroxine 75 mcg capsule 1 cap daily [Active]; lisinopril 20 mg Oral tablet 1 tab daily [Active]; montelukast 10 mg oral tablet 1 tab daily [Active]; folic acid 1 mg Oral tablet 1 tab daily [Active]; albuterol sulfate 2.5 mg /3 mL (0.083 %) inhalation Solution for Nebulization [Active]; biotin 10,000 mcg oral capsule [Active]; ferrous sulfate 325 mg (65 mg iron) oral tablet [Active]; - PMHx: 09:54 Aneurysm; Hypercholesterolemia; Hypertensive disorder; Hypothyroidism; Cerebrovascular ko1 accident; - PSHx: 09:54 Total abdominal hysterectomy; ko1 - Immunization history:: Adult Immunizations up to date. - Infectious Disease History:: Denies. - Social history:: Smoking status: Patient denies any tobacco usage or history of. Exam: 11:25 Constitutional: This is a well developed, well nourished patient who is awake, alert, gb1 and in no acute distress. Head/Face: Normocephalic, atraumatic. Eyes: Pupils equal round and reactive to light, extra-ocular motions intact. Lids and lashes normal. Conjunctiva and sclera are non-icteric and not injected. Cornea within normal limits. Periorbital areas with no swelling, redness, or edema. ENT: Nares patent. No nasal discharge, no septal abnormalities noted. Tympanic membranes are normal and external auditory canals are clear. Oropharynx with no redness, swelling, or masses, exudates, or evidence of obstruction, uvula midline. Mucous membranes moist. Neck: Trachea midline, no thyromegaly or masses palpated, and no cervical lymphadenopathy. Supple, full range of motion without nuchal rigidity, or vertebral point tenderness. No Meningismus. Chest/axilla: Normal chest wall appearance and motion. Nontender with no deformity. No lesions are appreciated. Cardiovascular: Regular rate and rhythm with a normal S1 and S2. No gallops, murmurs, or rubs. Normal PMI, no JVD. No pulse deficits. Respiratory: Lungs have equal breath sounds bilaterally, clear to auscultation and percussion. No rales, rhonchi or wheezes noted. No increased work of breathing, no retractions or nasal flaring. Abdomen/GI: Soft, non-tender, with normal bowel sounds. No distension or tympany. No guarding or rebound. No evidence of tenderness throughout. Back: No spinal tenderness. No costovertebral tenderness. Full range of motion. Skin: Warm, dry with normal turgor. Normal color with no rashes, no lesions, and no evidence of cellulitis. MS/ Extremity: Pulses equal, no cyanosis. Neurovascular intact. Full, normal range of motion. Vital Signs: 10:06 BP 132 / 72; Pulse 65; Resp 15; Temp 98.1; Pulse Ox 97% on R/A; ko1 10:10 BP 137 / 77; Pulse 67; Resp 15; Pulse Ox 96% ; ko1 11:05 BP 157 / 91; Pulse 57; Resp 15; Pulse Ox 99% ; ko1 MDM: 09:52 Medical Screening Exam initiated gb 11:25 HEART Score: History: Slightly Suspicious (0), ECG: Normal (0), Age: > or = 65 years gb1 (2), Risk Factors: 1 or 2 risk factors (1), [Hypercholesterolemia] [Hypertension] [Obesity] Troponin: < or = 1 x Normal Limit (0), Total Score = 3. Data reviewed: vital signs, nurses notes, lab test result(s), cardiac enzymes, CBC, electrolytes, EKG, radiologic studies. 11:25 ED course: EKG at 9:58 AM shows normal sinus rhythm at a rate of 69 with a QTc of 437. gb1 Patient has normal ST/T wave. No ischemic changes or reciprocal changes present. Normal intervals and axis.. 11:25 ED course: 73-year-old female with low risk chest pain. Patient's been having pain for gb1 4 to 6 weeks troponin is negative EKG is within normal limits no ischemic changes or no reciprocal changes present. Patient is low risk for pulmonary embolism she does have a questionable developing right costophrenic angle and infiltrate versus atelectasis. Patient is otherwise has a chronic cough and history of hyperlipidemia and hypertension and hypothyroidism and a CVA for which she still has residual deficits. I will discharge her home with Zithromax to cover for community-acquired pneumonia and recommend follow-up with Dr. Monge as that is his established patient.. 02/28 09:52 Order name: Basic Metabolic Panel; Complete Time: 10:33 gb1 02/28 09:52 Order name: CBC with Diff; Complete Time: 10:19 gb1 02/28 09:52 Order name: NT PRO-BNP; Complete Time: 10:33 gb1 02/28 09:52 Order name: PT-INR; Complete Time: 10:19 gb1 02/28 09:52 Order name: Troponin HS; Complete Time: 10:33 gb1 02/28 09:52 Order name: XRAY Chest (1 view); Complete Time: 10:19 gb1 02/28 09:52 Order name: EKG; Complete Time: 09:52 gb1 02/28 09:52 Order name: Cardiac monitoring; Complete Time: 10:03 gb1 02/28 09:52 Order name: EKG - Nurse/Tech; Complete Time: 10:03 gb1 02/28 09:52 Order name: IV Saline Lock; Complete Time: 10:03 gb1 02/28 09:52 Order name: Labs collected and sent; Complete Time: 10: gb1 02/28 09:52 Order name: O2 Per Protocol; Complete Time: 10: gb1 02/28 09:52 Order name: O2 Sat Monitoring; Complete Time: 10:03 gb1 Administered Medications: No medications were administered Disposition Summary: 02/29/24 11:24 Discharge Ordered Notes: Location: Home gb1 Problem: chronic gb1 Symptoms: have improved gb1 Condition: Stable gb1 Diagnosis - Chest pain on breathing gb1 - Other pneumonia, unspecified organism gb1 Followup: gb1 - With: Private Physician - When: - Reason: Recheck today's complaints Followup: gb1 - With: Cezar Monge MD - When: 1 - 2 days - Reason: Recheck today's complaints Discharge Instructions: - Discharge Summary Sheet gb1 - Nonspecific Chest Pain, Adult gb1 - Community-Acquired Pneumonia, Adult gb1 Forms: - Medication Reconciliation Form gb1 - Antibiotic Education gb1 - Prescription Opioid Use gb1 - Patient Portal Instructions gb1 - Leadership Thank You Letter gb1 Prescriptions: - Zithromax Z-Raymond 250 mg Oral Tablet - take 1 tablet ORAL route as directed for 5 days Day 1 - take two (2) tablets gb1 one time. Day 2, 3, 4 , 5 take one (1) tablet once daily.; 6 tablet; Refills: 0, Product Selection Permitted Signatures: Dispatcher [employer] Cordelia Trejo RN TIFFANY ko1 Anya Eldridge MD MD gb1 Corrections: (The following items were deleted from the chart) 10:02 09:54 Home Meds: Plavix 75 mg Oral tab 1 tab once daily; ko1 ko1
--- NOTE | 2024-02-29 11:25 | ER ---
Nurse's Notes [facility] Name: Mary Watts Age: 73 yrs Sex: Female : 1950 Arrival Date: 02/29/2024 Time: 09:50 Bed 4 Private MD: Diagnosis: Chest pain on breathing;Other pneumonia, unspecified organism Presentation: 02/28 10:06 Coronavirus screen: At this time, the client does not indicate any symptoms associated ko1 with coronavirus-19. Ebola Screen: No symptoms or risks identified at this time. Initial Sepsis Screen: Does the patient meet any 2 criteria? No. Patient's initial sepsis screen is negative. Does the patient have a suspected source of infection? No. Patient's initial sepsis screen is negative. Risk Assessment: Do you want to hurt yourself or someone else? Patient reports no desire to harm self or others. Onset of symptoms was February 29, 2024. 10:06 Method Of Arrival: Ambulatory ko1 10:06 Acuity: GROVER 2 ko1 10:15 Chief complaint: Patient states: chest and rib area hurts. ko1 Triage Assessment: 10:06 General: Appears in no apparent distress. Behavior is calm, cooperative, appropriate ko1 for age. Pain: Complains of pain in chest. EENT: No deficits noted. Neuro: No deficits noted. Cardiovascular: Reports chest pain. Respiratory: No deficits noted. GI: No deficits noted. No signs and/or symptoms were reported involving the gastrointestinal system. : No deficits noted. No signs and/or symptoms were reported regarding the genitourinary system. Derm: No deficits noted. No signs and/or symptoms reported regarding the dermatologic system. Musculoskeletal: No deficits noted. Historical: - Allergies: 09:54 PENICILLINS; ko1 - Home Meds: 09:54 amlodipine 5 mg oral tablet 1 tab 2 times per day for hypertension [Active]; aspirin 81 ko1 mg Oral cap 1 cap once daily [Active]; Trelegy Ellipta 200-62.5-25 mcg inhalation Blister, With Inhalation Device [Active]; pantoprazole 40 mg oral tablet, delayed release (enteric coated) 1 tab 2 times per day [Active]; levothyroxine 75 mcg capsule 1 cap daily [Active]; lisinopril 20 mg Oral tablet 1 tab daily [Active]; montelukast 10 mg oral tablet 1 tab daily [Active]; folic acid 1 mg Oral tablet 1 tab daily [Active]; albuterol sulfate 2.5 mg /3 mL (0.083 %) inhalation Solution for Nebulization [Active]; biotin 10,000 mcg oral capsule [Active]; ferrous sulfate 325 mg (65 mg iron) oral tablet [Active]; - PMHx: 09:54 Aneurysm; Hypercholesterolemia; Hypertensive disorder; Hypothyroidism; Cerebrovascular ko1 accident; - PSHx: 09:54 Total abdominal hysterectomy; ko1 - Immunization history:: Adult Immunizations up to date. - Infectious Disease History:: Denies. - Social history:: Smoking status: Patient denies any tobacco usage or history of. Screenin:08 [facility] ED Fall Risk Assessment (Adult) History of falling in the last 3 months, ko1 including since admission No falls in past 3 months (0 pts) Confusion or Disorientation No (0 pts) Intoxicated or Sedated No (0 pts) Impaired Gait No (0 pts) Mobility Assist Device Used No (0 pt) Altered Elimination No (0 pt) Score/Fall Risk Level 0 - 2 = Low Risk Oriented to surroundings, Maintained a safe environment, Educated pt \T\ family on fall prevention, incl call for assistance when getting out of bed, Assessed \T\ reinforced patient's understanding of fall precautions, Provided non-skid footwear, Hourly rounding (assess needs \T\ fall precautionary measures) done. Abuse screen: Denies threats or abuse. Denies injuries from another. Nutritional screening: No deficits noted. Tuberculosis screening: No symptoms or risk factors identified. Assessment: 10:08 Reassessment: see triage. Pain: Pain does not radiate. Pain began gradually. ko1 Vital Signs: 10:06 BP 132 / 72; Pulse 65; Resp 15; Temp 98.1; Pulse Ox 97% on R/A; ko1 10:10 BP 137 / 77; Pulse 67; Resp 15; Pulse Ox 96% ; ko1 11:05 BP 157 / 91; Pulse 57; Resp 15; Pulse Ox 99% ; ko1 ED Course: 09:51 Patient arrived in ED. mr 09:51 Anya Eldridge MD is Attending Physician. gb1 09:51 Cordelia Hernandez, TIFFANY is Primary Nurse. ko1 10:03 Basic Metabolic Panel Sent. ko1 10:03 CBC with Diff Sent. ko1 10:03 NT PRO-BNP Sent. ko1 10:03 PT-INR Sent. ko1 10:03 Troponin HS Sent. ko1 10:06 Arm band placed on right wrist. Patient placed in an exam room, on a stretcher, on ko1 potline monitor, on pulse oximetry, Patient notified of wait time. 10:07 XRAY Chest (1 view) In Process Unspecified. EDMS 10:07 Triage completed. ko1 10:07 Initial lab(s) drawn, by me, sent to lab. Inserted saline lock: 20 gauge in right zm antecubital area, using aseptic technique. Blood collected. Flushed with 10 mL NS. 10:07 EKG done, by ED staff, reviewed by Anya Eldridge MD. 10:08 No provider procedures requiring assistance completed. Patient maintains SpO2 ko1 saturation greater than 95% on room air. 10:08 Patient has correct armband on for positive identification. Allergy band placed. Placed ko1 in gown. Bed in low position. Call light in reach. Side rails up X2. Provided Education on: labs. Client placed on continuous cardiac and pulse oximetry monitoring. NIBP monitoring applied. potline monitor on. Door closed. Noise minimized. Lights dimmed. Warm blanket given. Pillow given. 11:23 Cezar Monge MD is Referral Physician. gb1 11:31 IV discontinued, intact, bleeding controlled, No redness/swelling at site. Pressure ko1 dressing applied. Administered Medications: No medications were administered Medication: 10:08 VIS not applicable for this client. ko1 Outcome: 11:24 Discharge ordered by . gb1 11:31 Discharged to home ambulatory, with family, ko1 11:31 Condition: stable 11:31 Discharge instructions given to patient, family, Instructed on discharge instructions, follow up and referral plans. medication usage, Demonstrated understanding of instructions, follow-up care, medications, Prescriptions given X 1, 11:36 Patient left the ED. ko1 Signatures: Dispatcher [employer] [facility] Fabby Jessica, Solomon Carbajal mr AlexanderLe Kathy, TIFFANY RN susana1 Anya Eldridge MD MD gb1 Corrections: (The following items were deleted from the chart) 10:02 09:54 Home Meds: Plavix 75 mg Oral tab 1 tab once daily; ko1 ko1
[2024-02-29 13:43] VITALS: TEMP 98.1
[2024-02-29 13:48] VITALS: BP 157/91; O2SAT 99
--- NOTE | 2024-03-03 12:13 | EKG ---
Test Date: 2024-02-29 Test Time: 09:58:38 Director Of Corporate Marketing: ASAD MEASUREMENT RESULTS: Intervals: Rate: 69 AR: 172 QRSD: 96 QT: 408 QTc: 437 [place]: P: 36 AR: 172 QRS: 50 T: 19 INTERPRETIVE STATEMENTS: Normal sinus rhythm Normal ECG Compared to ECG 01/07/2022 14:38:24 Sinus bradycardia no longer present Electronically Signed On 03-03-24 12:11:27 [employer] by Bruce Weeks
== END 2024-02-29 11:36 | disposition home or self-care (01) ==
LOC: ER 09:50
DX: J18.8 Other pneumonia, unspecified organism (principal); I10 Essential (primary) hypertension; Z86.73 Personal history of transient ischemic attack (TIA), and cerebral infarction without residual deficits
CPT/HCPCS: 36415; 71045; 80048; 83880; 84484; 85025; 85610; 93005; 99284

== ENCOUNTER 2024-03-07 10:17 | Inpatient (IN) | payer OTHER ==
[2024-03-07 10:53] VITALS: BMI 31.0
[2024-03-07] MEDS ORDERED: ACETAMINOPHEN 500 MG TAB PO PRN (11:08)
--- NOTE | 2024-03-07 11:49 | RAD REPORT ---
EXAM: CT Head Brain Wo Cont HISTORY: h/o stroke COMPARISON: 11/20/2021 and 06/26/2021 TECHNIQUE: Multiple contiguous axial images were obtained for a CT of the brain without contrast. Sag ittal and coronal reformats were performed. One or more of the following dose reduction techniques were used: Automated exposure control, adjus tment of the mA and kV according to patient size, and iterative reconstruction. Unless otherwise specified, incidental findings do not require dedicated imaging follow-up. FINDINGS: No evidence of hydrocephalus, intracranial hemorrhage, or extra-axial fluid collection. Partially empty sella again noted. Newly placed right MCA stent device. Left opercular encephalomalacia is stable. Mild peritrigonal white matter hypodensities, stable, sugg estive of chronic small vessel ischemic changes. Brain parenchyma is otherwise normal in appearance. The calvarium is intact. The visualized paranasal sinuses and mastoid air cells are essentially clear . IMPRESSION: No evidence of acute intracranial abnormality. Newly placed right MCA stent device and other stable f indings as above.
--- NOTE | 2024-03-07 11:58 | RAD REPORT ---
EXAMINATION: TWO VIEW CHEST XR CLINICAL INDICATION: Female, 73 years old. [facility] unstable angina TECHNIQUE: 2 view radiographs of the chest were performed. COMPARISON: 02/29/2024 FINDINGS: The lungs are hyperexpanded suggesting COPD. No pneumothorax or sizable effusion. The heart is normal in size. Mediastinal contours are unremarkable. IMPRESSION: No acute or significant abnormalities.
[2024-03-07] MEDS: METOPROLOL TAR 25 MG TAB PO ONE (12:08)
[2024-03-07] MEDS: ASPIRIN EC 81 MG TAB PO ONE (12:08)
[2024-03-07 12:09] LABS: Absolute Eosinophils 0.1 K/uL (0-0.5); Absolute Lymphocytes (CBC) 1.9 K/uL (0.7-4.9); Absolute Monocytes 0.7 K/uL (0.1-1.3); Basophils % 0.6 % (0-1.3); Eosinophils % 1.1 % (0-4.4); Hematocrit 39.4 % (36.0-45.0); Hemoglobin 13.4 g/dL (12.0-15.0); Lymphocytes % 24.8 % (15.3-44.8); MCH 32.3 pg (27.0-35.0); MCHC 34.1 g/dL (32.0-36.0); MCV 94.6 fL (80-100); MPV 7.4 fL (7.6-11.3); Monocytes % 9.7 % (3.3-12.3); Neutrophils % 63.8 % (41.7-73.7); Platelets 292 thou/uL (152-406); RBC Red Blood Cell Count 4.17 M/uL (3.86-4.86); Red Cell Distribution Width 12.6 % (12.1-15.2)
--- NOTE | 2024-03-07 12:09 | P.CNS ---
Date of Consult: 03/07/24 Chief Complaint: chest pain History of Present Illness: Patient with PMH of stroke, HTN, Mild carotid A disease, presented with chest pain that has been going on for two weeks, pressure left sided, no other cardiac symptoms. Allergies Penicillins Allergy (Verified 01/07/22 14:23) Rash Home medications list reviewed: Yes Home Medications: Acetaminophen [Tylenol Extra Strength] 1 cap PO Q6H PRN 11/21/21 Aspirin [Aspirin EC 81 MG] 81 mg PO DAILY 11/21/21 Folic Acid 1 mg PO DAILY 11/21/21 Montelukast [Singulair] 10 mg PO DAILY 11/21/21 lisinopriL [Lisinopril] 1 tab PO DAILY 11/21/21 Albuterol Sulfate [Albuterol Sulfate 0.083% Neb Soln] 1 dose IN DAILY PRN 03/07/24 Amlodipine [Norvasc*] 5 mg PO BID 03/07/24 Biotin 1 cap PO DAILY 03/07/24 Ezetimibe 10 mg PO DAILY 03/07/24 Ferrous Sulfate [Iron] 1 tab PO DAILY 03/07/24 Fluticasone/Umeclidin/Vilanter [Trelegy Ellipta 200-62.5-25] 1 puff IN DAILY 03/07/24 Levothyroxine [Synthroid*] 75 mcg PO DAILY 03/07/24 Pantoprazole [Protonix Tab*] 40 mg PO BID 03/07/24 Rosuvastatin [Crestor*] 10 mg PO DAILY 03/07/24 - Past Medical/Surgical History Diabetic: No -: Hypertension -: Hyperlipidemia -: Tobacco abuse -: Hypothyroid -: smoker -: ETOH -: Bilateral Carotid Artery Stenosis -: COPD -: Cerebral Aneurysm -: chronic back pain -: Hysterectomy Psychosocial/ Personal History: Patient lives at home with her children - Family History Mother Medical History: Hypertension Notes: brain anuerysm - Social History Smoking Status: Current every day smoker Alcohol use: Yes CD- Drugs: No Caffeine use: Yes Review of Systems 10-point ROS is otherwise unremarkable Physical Examination General: Alert, In no apparent distress HEENT: Atraumatic, PERRLA, Mucous membr. moist/pink, EOMI, Sclerae nonicteric Neck: Supple, 2+ carotid pulse no bruit, No LAD, Without JVD or thyroid abnormality Respiratory: Clear to auscultation bilaterally, Normal air movement Cardiovascular: Regular rate/rhythm, Normal S1 S2 Gastrointestinal: Normal bowel sounds, No tenderness Musculoskeletal: No tenderness Integumentary: No rashes Neurological: Normal gait, Normal speech, Normal tone, Normal affect Lymphatics: No axilla or inguinal lymphadenopathy - Problems (1) Chest pain Current Visit: Yes Status: Acute Plan: concerned for unstable angina. NPO after midnight for coronary angiogram in am ASA 81 mg daily Lipitor 40 mg daily (2) HTN (hypertension) Current Visit: Yes Status: Acute Plan: continue metoprolol
--- NOTE | 2024-03-07 12:14 | RAD REPORT ---
EXAM: XR Knee Right 3 View HISTORY: [facility] MAIN knee pain COMPARISON: None TECHNIQUE: 3 views of the right knee were obtained. FINDINGS: No knee effusion is seen. There is no evidence of acute fracture or dislocation. No signif icant degenerative changes are seen apart from right patellofemoral joint degenerative changes. Vascular calcifications. No other soft tissue abnormalities. IMPRESSION: No evidence of acute osseous abnormality.
--- NOTE | 2024-03-07 12:15 | RAD REPORT ---
EXAM: XR Knee Left 3 View HISTORY: [facility] MA[facility] knee pain COMPARISON: None TECHNIQUE: 3 views of the left knee were obtained. FINDINGS: No knee effusion is seen. There is no evidence of acute fracture or dislocation. No signif icant degenerative changes are seen apart from mild left patellofemoral articulation degenerative changes. Vascular calcifications. No soft tissue swelling or other soft tissue abnormality is presen t. IMPRESSION: No evidence of acute osseous abnormality.
[2024-03-07 12:29] LABS: Albumin 3.6 g/dL (3.4-5.0); Albumin/Globulin Ratio 0.9 (1.1-1.8); Bilirubin Total 0.5 mg/dL (0.2-1.0); Globulin 3.8 g/dL (2.3-3.5); Protein, Total 7.4 g/dL (6.4-8.2); Troponin High Sensitivity 3.8 pg/mL (<58.9)
[2024-03-07] MEDS: ENOXAPARIN 80 MG/0.8 ML SQ ONE (12:45)
[2024-03-07 14:56] LABS: PT Prothrombin Time 12.1 SECONDS (9.4-12.5); PTT, Activated Partial Thromb 37.2 SECONDS (24.3-36.9); Protime INR 1.08
[2024-03-07] MEDS: METOPROLOL TAR 25 MG TAB PO SCH (20:33)
[2024-03-07] MEDS: ATORVASTATIN 40 MG TAB PO SCH (20:34)
[2024-03-07] MEDS: AMLODIPINE 5 MG TAB PO SCH (22:30)
[2024-03-07] MEDS: PANTOPRAZOLE 40MG TABLET PO SCH (22:30)
--- NOTE | 2024-03-08 00:11 | HP ---
Date of Admission: 03/07/2024 Chief Complaint: Chest pain, shortness of breath. History Of Present Illness: This is a 73-year-old very pleasant female patient, who came into office today with her and reported that last week, she went to emergency room with complaints of le ft-sided chest pain in the precordial area. After she was evaluated in the emergency room, she was t old to have pneumonia in the right lower lobe and she was discharged to go home. She took antibiotic as prescribed from emergency room, but chest pain complaints has not improved any. She describes as having chest pain that is lasting for 5 to 10 minutes in the precordial region and described as achi ness type of feeling. It happens at rest as well as with normal daily activity, which is just walkin g across the room in her house. She gets somewhat short of breath with this pain and she is also hav ing pain in her mid back area along with this chest pain. The patient has occasional cough which is chronic and unchanged. Denies any fever. She has pain in her both knees and has fallen down recentl y as a result of her instability due to knee problem. After I evaluated her, decision was made to ad du her to hospital. The patient had trouble ambulating in the room, getting up from chair to get on the exam table. She was not steady on her own and required assistance and was noted to have some sh ortness of breath just taking few steps in the exam room. Review of Systems: Cardiovascular: As mentioned above. Respiratory: As mentioned above. Musculoskeletal: As mentioned above. All other systems reviewed and negative. Allergies: TO PENICILLIN CAUSING ITCHING. Medications: Albuterol inhaler 2 puffs every 4 hours as needed, albuterol nebulizer treatment 4 time s a day as needed, amlodipine 5 mg 2 times a day, aspirin 81 mg daily, cetirizine 10 mg daily, ezetim markos 10 mg daily at bedtime, Trelegy inhaler 1 puff daily, Flonase nasal spray 1 spray each nostril 2 times a day as needed for allergies, folic acid 1 mg daily, iron 65 mg daily, levothyroxine 75 mcg da noemi except none on Thursday, lisinopril 20 mg daily, montelukast 10 mg daily, pantoprazole 40 mg daily, and rosuvastatin 10 mg daily at bedtime. Past Medical History: Significant for hypothyroidism, hyperlipidemia, type 2 diabetes mellitus, hype rtension, diverticulosis, COPD, allergic rhinitis, lumbar spondylosis, gastroesophageal reflux diseas e, prior history of stroke that has resulted in some slurred speech, cerebral aneurysm, insomnia, ane franklin. Past Surgical History: Significant for hysterectomy and stent placement in her cerebral artery. Family History: Father , had throat cancer. Mother had hypertension. Sister had breast cancer. Social History: Prior history of smoking, not at present time. Use of alcohol 1 drink a day. Physical Examination: Vital Signs: Blood pressure 124/79, pulse 64, temperature 97.5, respiratory rate 16. Weight 178 devan nds, height 64 inches. General: Awake, alert, oriented, not in distress. HEENT: Head atraumatic, normocephalic. Conjunctivae nonerythematous. Sclerae white. Mouth, no thr ush or edema noted. Ears/Nose, no mass, lesion, discharge noted. Neck: Supple. No JVD, lymph nodes, bruit, thyromegaly noted. Lungs: Bilateral good equal air entry. Clear to auscultation. No rhonchi. No rales. Heart: Normal heart sounds, no murmur or gallop. Abdomen: Soft, bowel sounds normal. No guarding, rigidity, tenderness, mass, hepatosplenomegaly, di stention, or bruit noted. Extremities: No leg edema. No calf tenderness. Skin: No rash, ulcer, cellulitis. Lymphatics: No lymph node enlargement in neck, supraclavicular, infraclavicular region. Neuro: No focal neurological deficit. Chest: Unremarkable. External Genitalia: Deferred. Rectal: Deferred. Laboratory Data: The patient's EKG showed sinus rhythm, no acute ST-T changes. Chest x-ray, no acut e cardiopulmonary changes. CAT scan of the head without contrast negative for any acute intracranial changes. WBC 7.8, hemoglobin 13.4, platelets 292. Sodium 137, potassium 4, chloride 108, bicarb 24 , BUN 20, creatinine 0.98, glucose 102. Liver function tests, AST 46, ALT 57. Troponin 3.8. ProBNP 360. Impression: 1.Unstable angina. 2.Hypertension. 3.Hyperlipidemia. 4.Type 2 diabetes mellitus. 5.Hypothyroidism. 6.Cerebral aneurysm. 7.Stroke. 8.COPD. 9.Diverticulosis. 10.Allergic rhinitis. 11.Gastroesophageal reflux disease. 12.Osteoarthritis, multiple sites. Plan: We will go ahead and admit the patient to hospital for further evaluation and management of th is problem. The patient is appropriate for inpatient and is expected to spend 2 midnights in hospita l. We will go ahead and continue aspirin per order 81 mg daily and 1 dose of Lovenox was given. Cristóbal enox was given at 80 mg dose subcutaneous injection. We will get fasting lipid profile tomorrow morn ing. We will consult plug cutting machine operator and I have discussed details with plug cutting machine operator and we will keep he r n.p.o. after midnight and plan is to do cardiac cath tomorrow for her. For hypertension, we will c ontinue her antihypertensive medication per order. Monitor blood pressure and adjust blood pressure medication as it becomes necessary. For hyperlipidemia, we will give high dose statin therapy per or tevin and we will get fasting lipid profile tomorrow morning. For hypothyroidism, we will continue lev othyroxine per order and no need for further intervention. The patient takes her inhaler on a regula r basis for COPD and no need for any further intervention while in the hospital at this time. For ga stroesophageal reflux disease, we will continue her medication per order and it will not require any further intervention while in the hospital. Total time spent today 80 minutes including evaluation and management for this hospital admission, fl arrangements for hospital admission, communication with plug cutting machine operator, and review of prior office records. Details and plan of treatment discussed with the patient and the patient's and I wi ll see her tomorrow for followup. DOLORES/MODL Voice ID: [id number]
[2024-03-08] MEDS ORDERED: D5 0.9 NS 1,000 ML IV SCH (08:00)
[2024-03-08] MEDS: ASPIRIN EC 81 MG TAB PO SCH (08:46)
[2024-03-08] MEDS: LEVOTHYROXINE SOD 0.075 MG TAB PO SCH (08:49)
[2024-03-08] MEDS: MONTELUKAST 10 MG TAB PO SCH (08:52)
[2024-03-08] MEDS: lisinopriL 20 MG TAB PO SCH (09:00)
[2024-03-08] MEDS ORDERED: NA CHLORIDE 0.9% 500 ML ONE (09:53)
[2024-03-08] MEDS ORDERED: MIDAZOLAM HCL 2 MG/2 ML INJ ONE (10:02)
[2024-03-08] MEDS ORDERED: HEPA 1000U/500MLS 2,000 UNIT/1,000 ML BAG IV ONE (10:02)
[2024-03-08] MEDS ORDERED: LIDOCAINE 1% 20 ML MDV ONE (10:02)
[2024-03-08] MEDS ORDERED: HEPARIN 5000 UNIT/ML 1 ML VIAL ONE (10:03)
[2024-03-08] MEDS ORDERED: FENTANYL CITR 100 MCG/2 ML ONE (10:03)
[2024-03-08] MEDS ORDERED: HEPARIN 10,000 UNIT/10 ML VIAL IV ONE (12:02)
--- NOTE | 2024-03-08 15:00 | OP ---
Date of Procedure: 03/08/2024 Surgeon: Bruce Weeks Procedures Performed: 1.Left heart catheterization. 2.Selective coronary angiogram. 3.PCI of the RCA with Synergy 2.5 x 38 mm drug-eluting stent. Indication For Procedure: Unstable angina. Complications: None. Estimated Blood Loss: Less than 50 cc. Access: Right radial, closed by TR band. Sedation Time: 40 minutes with 2 of Versed and 50 of fentanyl. Description Of Procedure: After risks, and benefits, and alternatives were explained to the patient, patient agreed to proceed with procedure and signed informed consent. The patient was brought back to the lab engineer, prepped and draped in sterile fashion. Time-out was performed. Sedation was admini stered. Next, the right radial access was obtained using ultrasound-guided micropuncture technique. [place] 4.0 catheter was advanced over a J-wire to the LV cavity. LVEDP was obtained. Pullback did n ot show any gradient. Same catheter was used for selective angiogram of the left and right coronary systems. After the catheter was exchanged over a J-wire, heparin was administered. ACT was therapeu tic. A JR4 guide was attempted for PCI, but there was a poor support, so this JR4 guide was exchange d for a 3DRC guide. We used micro catheters with Veronica 1 that was upgraded to Veronica 2 and Veronica 3 wires . Finally, we were able to cross the lead. We pre-dilated the lesion with an NC 2.5 mm balloon. Ne xt, Synergy 2.5 x 38 mm drug-eluting stent was placed across the lesion that is postdilated with an N C 3.0 mm balloon. Repeat angiogram shows BRYNN-3 flow. Catheter was removed over a J-wire. Sheath w as removed. TR band was applied. Hemostasis was achieved and the patient was moved back to recovery room in stable condition. Findings: 1.Left main normal. 2.LAD; proximal mild luminal irregularities with mid 20% to 30% disease, then mild luminal irregular ities. 3.Left circ; mild luminal irregularities. 4.RCA; proximal mild luminal irregularities, then mid 100% occluded, status post PCI as above. Mid to distal mild luminal irregularities. Assessment And Plan: 1.Significant mid RCA 100% occlusions, most likely subacute, most likely happened during the last 3- 4 weeks, status post PCI with Synergy 2.5 x 38 mm drug-eluting stent. 2.Normal filling pressures as LVEDP is 5 mmHg. The plan will be: 1.Aspirin 81 mg daily for life. 2.Brilinta 180 x1 was given in the lab engineer. It was switched to Plavix 75 mg daily after Plavix anthony d. 3.Continue aggressive medical treatment for CAD. DONALD/LATA Voice ID: [id number] Report ID: [id number]
[2024-03-08 15:45] VITALS: O2SAT 100
[2024-03-08 17:32] VITALS: BP 133/65; TEMP 98.1
[2024-03-08] MEDS: CLOPIDOGREL 75 MG TABLET PO ONE (17:49)
[2024-03-08] MEDS ORDERED: TICAGRELOR 90 MG TABLET PO SCH (21:00)
--- NOTE | 2024-03-09 05:58 | DS ---
Date of Discharge: 03/08/2024 Disposition: Discharged to go home. Physical Examination: HEENT: Unremarkable. Lungs: Clear to auscultation. Heart: Sounds normal. Abdomen: Soft. Bowel sounds normal. No guarding, rigidity, tenderness, distention. Extremities: No leg edema. Hospital Course: This is a 73-year-old pleasant female patient, who came into office and after she w as evaluated, decision was made to admit her to hospital with chest pain and shortness of breath. Pl ease see dictated H and P for more information. The patient was admitted to hospital with unstable a ngina and Cardiology consultation was obtained from Dr. Weeks and details were discussed with him. The patient's IA was ruled out with normal cardiac enzyme and EKG did not show any acute ST-T changes . Today, Dr. Weeks did a cardiac cath on her and found out that she had 100% occlusion of her RCA a nd he was able to put a stent in her RCA and after the procedure, he contacted me and we did talk abo ut anti-platelet therapy and due to the cost involved with medication like Brilinta, clopidogrel will be less expensive and more affordable choice for the patient. So Dr. Weeks has agreed and as per d iscussion with him, we will give 600 mg of clopidogrel loading dose prior to discharge which was orde red to be given and nursing staff was instructed about that and starting tomorrow, she will take 75 m g daily for clopidogrel. After this cardiac cath procedure, the patient was stable and was discharge d to go home in stable condition with following discharge medications and instructions. Final Diagnoses: 1.Unstable angina. 2.Coronary artery disease. 3.Hypertension. 4.Hyperlipidemia. 5.Type 2 diabetes mellitus. 6.Hypothyroidism. 7.Cerebral aneurysm. 8.Stroke. 9.COPD. 10.Diverticulosis. 11.Allergic rhinitis. 12.Gastroesophageal reflux disease. 13.Osteoarthritis, multiple sites. Discharge Medications And Instructions: 1.Continue all prior home medication except following changes: Change rosuvastatin 10 mg take 2 tab lets by mouth daily until you run out and then change it to 20 mg take 1 tablet by mouth daily and st art clopidogrel 75 mg daily as of tomorrow. Prescription for fluvastatin and clopidogrel was sent to her [facility] from office. 2.Do not pull or push or carry anything heavier than 8-ounce glass of water using her hands for 1 we ek. 3.Follow up at office next week and follow up with fire controlman, Dr. Weeks in 2 weeks. Total time spent today 45 minutes. DOLORES/MODL Voice ID: [id number] Report ID: [id number]
[2024-03-09] MEDS ORDERED: CLOPIDOGREL 75 MG TABLET PO SCH (09:00)
--- NOTE | 2024-03-14 11:08 | EKG ---
Test Date: 2024-03-07 Test Time: 12:51:16 Modern Dancer: Dinesh Abel MEASUREMENT RESULTS: Intervals: Rate: 51 ME: 192 QRSD: 90 QT: 448 QTc: 412 [place]: P: 41 ME: 192 QRS: 31 T: 25 INTERPRETIVE STATEMENTS: Sinus bradycardia Otherwise normal ECG Compared to ECG 02/29/2024 09:58:38 Sinus rhythm no longer present Electronically Signed On 03-14-24 10:59:40 [employer]RTRO[employer] DEPUTY by Bruce Weeks
== END 2024-03-08 19:38 | disposition home health service (06) | DRG 322 ==
LOC: 2ND 10:17
PROVIDERS: ADMIT Internal Medicine; ATTEND Internal Medicine
PROC: 027034Z Dilation of Coronary Artery, One Artery with Drug-eluting Intraluminal Device, Percutaneous Approach (ICD-10-PCS; principal; 2024-03-08)
PROC: 4A023N7 Measurement of Cardiac Sampling and Pressure, Left Heart, Percutaneous Approach (ICD-10-PCS; 2024-03-08)
PROC: B2111ZZ Fluoroscopy of Multiple Coronary Arteries using Low Osmolar Contrast (ICD-10-PCS; 2024-03-08)
DX: I25.110 Atherosclerotic heart disease of native coronary artery with unstable angina pectoris (principal); I10 Essential (primary) hypertension; E03.9 Hypothyroidism, unspecified; J30.9 Allergic rhinitis, unspecified; E78.5 Hyperlipidemia, unspecified; M19.09 Primary osteoarthritis, other specified site; J44.9 Chronic obstructive pulmonary disease, unspecified; K21.9 Gastro-esophageal reflux disease without esophagitis; K57.90 Diverticulosis of intestine, part unspecified, without perforation or abscess without bleeding; F17.200 Nicotine dependence, unspecified, uncomplicated; Z86.73 Personal history of transient ischemic attack (TIA), and cerebral infarction without residual deficits; Z88.0 Allergy status to penicillin; Z79.82 Long term (current) use of aspirin; Z79.890 Hormone replacement therapy; Z79.899 Other long term (current) drug therapy; Z90.710 Acquired absence of both cervix and uterus
CPT/HCPCS: 36415; 70450; 71046; 76937; 80053; 83735; 83880; 84484; 85025; 85347; 85610; 85730; 93005; 93458; 97116; 97161; 99152; C1725; C1893; C9600; J1644; J2003; J2250; J3010; J7040; Q9967